=== PATIENT | male | born 1965 | race Caucasian/White ===

== ENCOUNTER 2016-10-10 19:08 | Emergency (ER) | payer OTHER ==
[~2016-10-10 19:08] MED LIST: /ESOM40CA OR; /MOXI40TA OR; /OXAZ10CA OR; /PANT40TA PO; /RANI15TA PO; /THIA10TA OR; /ZOLP6ER; ACAM0.05 PO; ALBU0.084 INH; ALBUTEROL HFA INH; AMBI10TA; ATOM40CA PO; BACL10TA2 PO; BENZ5TA PO; CELE1CAP9 PO; CELE20TA; CHLO25TA5 PO; COLA100C PO; CYCL5TA PO; DEPA1TAB3 PO; DEPA250T32 PO; DEPA500T2 PO; DEPAKOTE PO; DIVA500T3 PO; FLUO10CA9 PO; FOLI1TAB OR; HYDR10EL PO; HYDR50CA2 PO; HYDR50IN3 PO; KLON0.5T; M-VI27TA PO; MULTIVIT OR; NEUR600T PO; NICO14DI3 TD; NICO21DI4 TD; NICO7DIS4 TD; NORC5TAB PO; OMEP20TA7 OR; ONDA4TAB6 PO; OXYC5CAP28 PO; PERC7.5T8 PO; PERCOCET PO; PROT1TAB2 PO; PROZ20CA11 PO; QUET30TA; RISP1TAB3 PO; RISP2TAB3 PO; RISP2TAB30 PO; SERO400T; SERO400T3; SUCR1SUS PO; TRAZ100T OR; TRAZ100T4 PO; TRAZ50TA2 PO; VIST50CA PO; VITA100T; VITAMIN B COMPLE1; ZANT150T OR; ZOLO50TA PO; ZYPR15TA OR; ZYPR2.5T2 PO; ZYPR5TAB OR; flexeril PO
[2016-10-10] MEDS ORDERED: KETOROLAC 30 MG/ML VIAL (J1885) As Ordered ONE (19:51)
[2016-10-10 20:39] LABS: BASO # 0.1 K/mm3 (0.0-0.2); BASO % 1.4 % (0.0-1.0); EOS # 0.2 K/mm3 (0.0-0.50); EOS % 2.6 % (0.0-3.0); LARGE UNSTAINED CELL # 0.2 K/mm3 (0.0-0.4); LARGE UNSTAINED CELL % 2.6 % (0.0-4.0); LYMPH # 2.3 K/mm3 (1.5-4.5); LYMPH % 33.9 % (24.0-44.0); MEAN CORPUSCULAR HEMOGLOBIN 33.2 pg (27.0-33.0); MEAN CORPUSCULAR HGB CONC 33.5 g/dl (32.0-36.5); MEAN CORPUSCULAR VOLUME 99.1 fl (80.0-96.0); MONO # 0.4 K/mm3 (0.0-0.8); MONO % 6.2 % (0.0-5.0); NEUTROPHILS # 3.4 K/mm3 (1.8-7.7); NEUTROPHILS % 53.2 % (36.0-66.0); PLATELET COUNT, AUTOMATED 259 k/mm3 (150-450); RED CELL DISTRIBUTION WIDTH 12.6 % (11.5-14.5); WHITE BLOOD COUNT 6.4 K/mm3 (4.0-10.0)
--- NOTE | 2016-10-10 20:50 | REPUSA ---
CLINICAL STATEMENT: Chest wall pain TECHNIQUE: CT of the chest was performed without intravenous contrast by obtaining contiguous axial s lices from level of the thyroid gland to level of the kidneys. Post imaging 3-D technique processing was utilized and multiplanar reformats were obtained in coronal and sagittal projections. COMPARISON: None FINDINGS: Lower neck: Visualized thyroid gland unremarkable. No mass or suspicious cystic lesion. Lungs / airways / pleura: No acute infiltrate, effusion, pneumothorax, mass, or suspicious nodule. Th ere are bilateral lower lobe scattered reticular and atelectatic opacities toward the bases which are nonspecific although likely benign post inflammatory changes. Central and visualized peripheral airw ays are patent. Mediastinum: No mass or suspicious cystic lesion. Heart normal in size without pericardial effusion. Thoracic aorta and pulmonary trunk normal in caliber. Lymph nodes: No enlarged adenopathy. Upper abdomen: Status post cholecystectomy otherwise no significant abnormalities identified. Osseous structures/Soft tissues/thoracic wall: Mild superior L1 compression deformity without surroun ding soft tissue swelling or hematoma likely chronic. No soft tissue abnormality or hernia. Line/devices: None. IMPRESSION: No evidence of acute intrathoracic injury.
[2016-10-10 21:00] LABS: ANION GAP 9 MEQ/L (8-16); BLOOD UREA NITROGEN 8 MG/DL (7-18); CALCIUM LEVEL 8.4 MG/DL (8.5-10.1); CARBON DIOXIDE LEVEL 27 MEQ/L (21-32); CHLORIDE LEVEL 105 MEQ/L (98-107); CREATININE FOR GFR 0.99 MG/DL (0.70-1.30); GLOMERULAR FILTRATION RATE > 60.0 (>56); GLUCOSE, FASTING 74 MG/DL (70-105); POTASSIUM SERUM 3.8 MEQ/L (3.5-5.1); SODIUM LEVEL 141 MEQ/L (136-145)
[2016-10-10] MEDS ORDERED: PERCOCET 5MG/325MG TAB As Ordered ONE (21:04)
[2016-10-10] MEDS ORDERED: OXYCODONE/APAP 5MG/325MG(BULK) 1 TAB TAB As Ordered ONE (21:39)
--- NOTE | 2016-10-10 22:15 | EDDOCDS ---
Nurse's Notes [facility] Name: Maurice Almodovar Age: 51 yrs Sex: Male : 1965 Arrival Date: 10/10/2016 Time: 19:08 Bed 15 Private MD: Merlene Dash C Diagnosis: Contusion of left front wall of thorax Presentation: 10/10 19:16 Presenting complaint: Patient states: "my ribs hurt". Per patient, fell the other night cf2 was seen and discharged from [place], told he had "bruised lung and ribs". Tonight pain has increased EMS states: stable during transport. Lung sounds clear to auscultation. Adult Sepsis Screening: The patient does not have new or worsening altered mentation. Patient's respiratory rate is less than 22. Systolic blood pressure is greater than 100. Patient has a qSOFA score of 0- Negative Sepsis Screen. Suicide/Homicide risk assessment- the patient denies having any suicidal and/or homicidal ideations and does not present with any other emotional, behavioral or mental health complaints. Status: Patient is not a service loss control consultant or dependent. Transition of care: patient was not received from another setting of care. 19:16 Acuity: AASHISH Level 4 cf2 19:16 Acuity: AASHISH Level 3 cf2 19:16 Method Of Arrival: Ambulance cf2 Triage Assessment: 19:18 General: Appears distressed, Behavior is appropriate for age, cooperative. Pain: cf2 Location: chest and abdomen left side. Pt Declines HIV testing. GI: No deficits noted. Historical: - Allergies: Morphine (Upset stomach); - Home Meds: 1. none - PMHx: COPD; ETOH abuse; Heart AttackX2; - PSHx: Hernia repair- Left inguinal; Cholecystectomy; - Social history: Smoking status: Patient uses tobacco products, current every day smoker. Race: White, Ethnicity: Not or No barriers to communication noted, The patient speaks fluent Turkmen, Preferred Language: Turkmen. - Family history: Not pertinent. - : The pt / caregiver states he / she is not on anticoagulants. Home medication list is obtained from the patient. - Exposure Risk Screening:: None identified. Screenin:34 Screening information is obtained from the patient. Fall risk: At risk due to apparent cf2 chemical impairment, prior history of falls. Assistance ADL's: requires no assistance with activities of daily living. Abuse/DV Screen: The patient / caregiver reports he/she is: not in a situation that causes fear, pain or injury. Nutritional screening: No deficits noted. Advance Directives: Further advance directive information is declined. home support is adequate. Assessment: 19:21 General: See triage. cf2 20:34 Adult Sepsis Screening: The patient does not have new or worsening altered mentation. cf2 Patient's respiratory rate is less than 22. Systolic blood pressure is greater than 100. Patient has a qSOFA score of 0- Negative Sepsis Screen. Pain: Location: chest and abdomen left sided. Neurological: No deficits noted. EENT: No deficits noted. Cardiovascular: No deficits noted. Respiratory: No deficits noted. Breath sounds are clear bilaterally. tenderness to left lower ribs. GI: Abdomen is flat, non- distended Bowel sounds present X 4 quads. Abd is tender to palpation in left upper quadrant Reports Pain is 9 out of 10 on a pain scale. Denies constipation, diarrhea, nausea, vomiting. : No deficits noted. Derm: No deficits noted. Musculoskeletal: No deficits noted. Injury Description: No known injury. 22:00 Reassessment: Patient states feeling better. Patient states symptoms have improved. cf2 Vital Signs: 19:18 BP 112 / 79; Pulse 74; Resp 18; Temp 96.8; Pulse Ox 93% on R/A; Weight 63.5 kg; Height cf2 5 ft. 8 in. (172.72 cm); Pain 9/10; 21:42 BP 109 / 63; Pulse 64; Resp 18; Temp 98.2(TE); Pulse Ox 94% on R/A; Pain 7/10; mdr 19:18 Body Mass Index 21.29 (63.50 kg, 172.72 cm) cf2 Vitals: 19:18 Log In Time N/A - ambulance arrival. cf2 ED Course: 19:10 Patient visited by Bk Elise PCA. kb5 19:10 Patient moved to Waiting kb5 19:11 Merlene Dash is Private Physician. kb5 19:11 Patient moved to 15 kb5 19:16 Charleen Mosley,RN is Primary Nurse. cf2 19:16 Patient visited by Charleen Mosley,SHIRA. cf2 19:17 Triage Initiated cf2 19:21 Patient visited by Charleen Mosley RN. cf2 19:36 Jay Campa DO is Attending Physician. mm11 19:36 Patient visited by Jay Campa DO. mm11 19:37 Patient visited by Charleen Mosley RN. cf2 19:49 Patient visited by Jay Campa DO. mm11 20:02 [facility] Payment Agreement was scanned into [employer] and attached to record. gjb 20:26 Patient visited by Charleen Mosley RN. cf2 20:26 ETOH Sent. cf2 20:26 BMP Sent. cf2 20:27 CBC with Diff Sent. cf2 20:34 The patient / caregiver is instructed regarding the plan of care and ED course. Patient cf2 has correct armband on for positive identification. Placed in gown. Bed in low position. Call light in reach. Side rails up X 1. Side rails up X2. Pulse ox on. Property :Personal belongings accompany Pt. Door closed. Noise minimized. Visitors limited. Lights dimmed. Moved to private room. Verbal reassurance given. Warm blanket given. Pillow given. Head of bed elevated. 20:34 Inserted saline lock: 20 gauge in right antecubital area and blood collected. The cf2 patient tolerated the procedure well. No procedures done that require assistance. 20:47 Patient visited by Charleen Mosley RN. cf2 21:19 Patient visited by Charleen Mosley RN. cf2 21:27 Merlene Dash is Referral Physician. mm11 21:42 Patient visited by Keith Morse PCA. mdr 21:43 CT Chest Without Contrast Returned. EDMS 22:00 Patient visited by Charleen Mosley RN. cf2 22:00 Discontinued lock. cf2 Administered Medications: 20:00 Drug: ketorolac 30 mg [ketorolac 30 mg/mL (1 mL) injection solution (1 mL)] Route: IVP; cf2 Site: right antecubital; 22:15 Follow up: Response: No significant change. cf2 21:19 Drug: oxyCODONE-acetaminophen 1 tabs [oxycodone-acetaminophen 5 mg-325 mg tablet (1 cf2 tabs)] Route: PO; 22:14 Follow up: Response: Pain is decreased cf2 21:46 Drug: oxyCODONE-acetaminophen 4 pack 1 packets [oxycodone-acetaminophen 5 mg-325 mg cf2 tablet (1 tabs)] {Co-Signature: kas2 (Lakeisha Ferris RN).} Route: PO; 22:14 Follow up: Response: No significant change. cf2 Order Results: Lab Order: CBC with Diff; SPEC'M 10/10/16 20:23 Test: WHITE BLOOD COUNT; Value: 6.4; Range: 4.0-10.0; Units: K/mm3; Status: F Test: RED BLOOD COUNT; Value: 4.41; Range: 4.30-6.10; Units: M/mm3; Status: F Test: HEMOGLOBIN; Value: 14.6; Range: 14.0-18.0; Units: g/dl; Status: F Test: HEMATOCRIT; Value: 43.7; Range: 42.0-52.0; Units: %; Status: F Test: MEAN CORPUSCULAR VOLUME; Value: 99.1; Range: 80.0-96.0; Abnormal: Above high normal; Units: fl; Status: F Test: MEAN CORPUSCULAR HEMOGLOBIN; Value: 33.2; Range: 27.0-33.0; Abnormal: Above high normal; Units: pg; Status: F Test: MEAN CORPUSCULAR HGB CONC; Value: 33.5; Range: 32.0-36.5; Units: g/dl; Status: F Test: RED CELL DISTRIBUTION WIDTH; Value: 12.6; Range: 11.5-14.5; Units: %; Status: F Test: PLATELET COUNT, AUTOMATED; Value: 259; Range: 150-450; Units: k/mm3; Status: F Test: NEUTROPHILS %; Value: 53.2; Range: 36.0-66.0; Units: %; Status: F Test: LYMPH %; Value: 33.9; Range: 24.0-44.0; Units: %; Status: F Test: MONO %; Value: 6.2; Range: 0.0-5.0; Abnormal: Above high normal; Units: %; Status: F Test: EOS %; Value: 2.6; Range: 0.0-3.0; Units: %; Status: F Test: BASO %; Value: 1.4; Range: 0.0-1.0; Abnormal: Above high normal; Units: %; Status: F Test: LARGE UNSTAINED CELL %; Value: 2.6; Range: 0.0-4.0; Units: %; Status: F Test: NEUTROPHILS #; Value: 3.4; Range: 1.8-7.7; Units: K/mm3; Status: F Test: LYMPH #; Value: 2.3; Range: 1.5-4.5; Units: K/mm3; Status: F Test: MONO #; Value: 0.4; Range: 0.0-0.8; Units: K/mm3; Status: F Test: EOS #; Value: 0.2; Range: 0.0-0.50; Units: K/mm3; Status: F Test: BASO #; Value: 0.1; Range: 0.0-0.2; Units: K/mm3; Status: F Test: LARGE UNSTAINED CELL #; Value: 0.2; Range: 0.0-0.4; Units: K/mm3; Status: F Lab Order: [facility]; SPEC'M 10/10/16 20:23 Test: GLUCOSE, FASTING; Value: 74; Range: 70-105; Units: MG/DL; Status: F Test: BLOOD UREA NITROGEN; Value: 8; Range: 7-18; Units: MG/DL; Status: F Test: CREATININE FOR GFR; Value: 0.99; Range: 0.70-1.30; Units: MG/DL; Status: F Test: GLOMERULAR FILTRATION RATE; Value: > 60.0; Range: >56; Status: F Test: SODIUM LEVEL; Value: 141; Range: 136-145; Units: MEQ/L; Status: F Test: POTASSIUM SERUM; Value: 3.8; Range: 3.5-5.1; Units: MEQ/L; Status: F Test: CHLORIDE LEVEL; Value: 105; Range: 98-107; Units: MEQ/L; Status: F Test: CARBON DIOXIDE LEVEL; Value: 27; Range: 21-32; Units: MEQ/L; Status: F Test: ANION GAP; Value: 9; Range: 8-16; Units: MEQ/L; Status: F Test: CALCIUM LEVEL; Value: 8.4; Range: 8.5-10.1; Abnormal: Below low normal; Units: MG/DL; Status: F Test Note: ; Units are mL/min/1.73 m2 Chronic Kidney Disease Staging per NKF: Stage I & II GFR >=60 Normal to Mildly Decreased Stage III GFR 30-59 Moderately Decreased Stage IV GFR 15-29 Severely Decreased Stage V GFR <15 Very Little GFR Left ESRD GFR <15 on FOOD AND NUTRITION SUPERVISOR Lab Order: ETOH; SPEC'M 10/10/16 20:23 Test: ETHYL ALCOHOL (ETHANOL); Value: 0.199; Range: 0.000-0.010; Abnormal: Above high normal; Units: %; Status: F Radiology Order: CT Chest Without Contrast Test: CT Chest Without Contrast REASON FOR EXAMINATION: left chest wall pain post trauma; ; CLINICAL STATEMENT: Chest wall pain; TECHNIQUE: CT of the chest was performed without intravenous contrast by obtaining contiguous axial s; lices from level of the thyroid gland to level of the kidneys. Post imaging 3-D technique processing; was utilized and multiplanar reformats were obtained in coronal and sagittal projections.; COMPARISON: None; FINDINGS:; Lower neck: Visualized thyroid gland unremarkable. No mass or suspicious cystic lesion.; Lungs / airways / pleura: No acute infiltrate, effusion, pneumothorax, mass, or suspicious nodule. Th; ere are bilateral lower lobe scattered reticular and atelectatic opacities toward the bases which are; nonspecific although likely benign post inflammatory changes. Central and visualized peripheral airw; ays are patent.; Mediastinum: No mass or suspicious cystic lesion. Heart normal in size without pericardial effusion.; Thoracic aorta and pulmonary trunk normal in caliber.; Lymph nodes: No enlarged adenopathy.; Upper abdomen: Status post cholecystectomy otherwise no significant abnormalities identified.; Osseous structures/Soft tissues/thoracic wall: Mild superior L1 compression deformity without surroun; ding soft tissue swelling or hematoma likely chronic. No soft tissue abnormality or hernia.; Line/devices: None.; IMPRESSION:; No evidence of acute intrathoracic injury.; ; Outcome: 20:34 CT Study completed. cf2 21:28 Discharge ordered by Provider. mm11 22:00 Discharge Assessment: Patient awake, alert and oriented x 3. No cognitive and/or cf2 functional deficits noted. Patient verbalized understanding of disposition instructions. Patient awake and alert. Oriented to person, place and time. Patient verbalized understanding of disposition instructions. Patient has no functional deficits. patient administered narcotics - yes. The following High Risk Discharge criteria are identified: None. Discharged to home via wheelchair, with significant other. Condition: good. Discharge instructions given to patient, Instructed on discharge instructions, medication usage, Demonstrated understanding of instructions, medications, Prescriptions given X 1. 22:15 Patient left the ED. [facility] Signatures: Dispatcher [employer] EDMS Bk Elise, SCREWDOWN OPERATOR SCREWDOWN OPERATOR kb5 Jay Campa, DO DO mm11 Krystina Agudelo, RN RN sls1 Keith Morse, SCREWDOWN OPERATOR SCREWDOWN OPERATOR mdr Em Durbin Christina,RN RN cf2 Lakeisha Ferris RN kas2 MTDD
--- NOTE | 2016-10-10 22:15 | EDDOCDS ---
Physician Documentation [facility] Name: Maurice Almodovar Age: 51 yrs Sex: Male : 1965 Arrival Date: 10/10/2016 Time: 19:08 Bed 15 Private MD: Merlene Dash C Disposition: 10/10/16 21:28 Discharged to Home/Self Care. Impression: Contusion of left front wall of thorax. - Condition is Stable. - Discharge Instructions: Chest Contusion, Chest Contusion, [id number]. - Prescriptions for Percocet 5- 325 mg Oral Tablet - take 1 tablet by ORAL route every 6 hours As needed MDD: 4 tabs; 20 tablet. - Medication Reconciliation, Local Pharmacy Hours form. - Follow up: Merlene Dash; When: 1 week; Reason: Continuance of care. - Problem is an acute exacerbation. - Symptoms have improved. Historical: - Allergies: Morphine (Upset stomach); - Home Meds: 1. none - PMHx: COPD; ETOH abuse; Heart AttackX2; - PSHx: Hernia repair- Left inguinal; Cholecystectomy; - Social history: Smoking status: Patient uses tobacco products, current every day smoker. Race: White, Ethnicity: Not or No barriers to communication noted, The patient speaks fluent Egyptian, Preferred Language: Egyptian. - Family history: Not pertinent. - : The pt / caregiver states he / she is not on anticoagulants. Home medication list is obtained from the patient. - Exposure Risk Screening:: None identified. Vital Signs: 10/10 19:18 BP 112 / 79; Pulse 74; Resp 18; Temp 96.8; Pulse Ox 93% on R/A; Weight 63.5 kg / 139.99 cf2 lbs; Height 5 ft. 8 in. (172.72 cm); Pain 9/10; 21:42 BP 109 / 63; Pulse 64; Resp 18; Temp 98.2(TE); Pulse Ox 94% on R/A; Pain 7/10; mdr 19:18 Body Mass Index 21.29 (63.50 kg, 172.72 cm) cf2 MDM: 19:50 IV Saline Lock ordered. mm11 19:50 ketorolac 30 mg IVP once ordered. mm11 19:51 CBC with Diff Ordered. EDMS 19:51 BMP Ordered. EDMS 19:51 ETOH Ordered. EDMS 19:52 CT Chest Without Contrast Ordered. EDMS 20:01 Financial registration complete. gjb 20:02 [facility] Payment Agreement was scanned into [email or web address] and attached to record. gjb 21: CBC with Diff Reviewed. mm11 21: BMP Reviewed. mm11 21: ETOH Reviewed. mm11 21:01 oxyCODONE-acetaminophen 5 mg-325 mg 1 tabs PO once ordered. mm11 21:27 oxyCODONE-acetaminophen 4 pack 5 mg-325 mg 1 packets PO once; Dispense with pt, take as mm11 per instruction on package ordered. Administered Medications: 20:00 Drug: ketorolac 30 mg [ketorolac 30 mg/mL (1 mL) injection solution (1 mL)] Route: IVP; cf2 Site: right antecubital; 22:15 Follow up: Response: No significant change. cf2 21:19 Drug: oxyCODONE-acetaminophen 1 tabs [oxycodone-acetaminophen 5 mg-325 mg tablet (1 cf2 tabs)] Route: PO; 22:14 Follow up: Response: Pain is decreased cf2 21:46 Drug: oxyCODONE-acetaminophen 4 pack 1 packets [oxycodone-acetaminophen 5 mg-325 mg cf2 tablet (1 tabs)] {Co-Signature: kas2 (Lakeisha Ferris RN).} Route: PO; 22:14 Follow up: Response: No significant change. cf2 Signatures: Dispatcher [employer] EDMS Jay Campa, DO DO mm11 Krystina Agudelo RN RN sls1 Em Durbin [facility] Charleen Mosley RN RN cf2 Lakeisha Ferris RN kas2 The chart was reviewed and I authenticate all verbal orders and agree with the evaluation and treatment provided.Attachments: 20:02 [facility] Payment Agreement gj MTDD
--- NOTE | 2016-10-12 23:16 | EDDOCDS ---
Physician Documentation [facility] Name: Maurice Almodovar Age: 51 yrs Sex: Male : 1965 Arrival Date: 10/10/2016 Time: 19:08 Bed 15 Private MD: Merlene Dash C Disposition: 10/10/16 21:28 Discharged to Home/Self Care. Impression: Contusion of left front wall of thorax. - Condition is Stable. - Discharge Instructions: Chest Contusion, Chest Contusion, [id number]. - Prescriptions for Percocet 5- 325 mg Oral Tablet - take 1 tablet by ORAL route every 6 hours As needed MDD: 4 tabs; 20 tablet. - Medication Reconciliation, Local Pharmacy Hours form. - Follow up: Merlene Dash; When: 1 week; Reason: Continuance of care. - Problem is an acute exacerbation. - Symptoms have improved. Historical: - Allergies: Morphine (Upset stomach); - Home Meds: 1. none - PMHx: COPD; ETOH abuse; Heart AttackX2; - PSHx: Hernia repair- Left inguinal; Cholecystectomy; - Social history: Smoking status: Patient uses tobacco products, current every day smoker. Race: White, Ethnicity: Not or No barriers to communication noted, The patient speaks fluent Taiwanese, Preferred Language: Taiwanese. - Family history: Not pertinent. - : The pt / caregiver states he / she is not on anticoagulants. Home medication list is obtained from the patient. - Exposure Risk Screening:: None identified. Vital Signs: 10/10 19:18 BP 112 / 79; Pulse 74; Resp 18; Temp 96.8; Pulse Ox 93% on R/A; Weight 63.5 kg / 139.99 cf2 lbs; Height 5 ft. 8 in. (172.72 cm); Pain 9/10; 21:42 BP 109 / 63; Pulse 64; Resp 18; Temp 98.2(TE); Pulse Ox 94% on R/A; Pain 7/10; mdr 19:18 Body Mass Index 21.29 (63.50 kg, 172.72 cm) cf2 MDM: 19:50 IV Saline Lock ordered. mm11 19:50 ketorolac 30 mg IVP once ordered. mm11 19:51 CBC with Diff Ordered. EDMS 19:51 BMP Ordered. EDMS 19:51 ETOH Ordered. EDMS 19:52 CT Chest Without Contrast Ordered. EDMS 20:01 Financial registration complete. b 20: [facility] Payment Agreement was scanned into [employer] and attached to record. gjb 21: CBC with Diff Reviewed. mm11 21: BMP Reviewed. mm11 21: ETOH Reviewed. mm11 21:01 oxyCODONE-acetaminophen 5 mg-325 mg 1 tabs PO once ordered. mm11 21:27 oxyCODONE-acetaminophen 4 pack 5 mg-325 mg 1 packets PO once; Dispense with pt, take as mm11 per instruction on package ordered. 10/11 11:32 T-Sheet-- Draft Copy was scanned into [employer] and attached to record. gb 11:32 Radiology Report was scanned into [employer] and attached to record. gb 11:32 PCR was scanned into [employer] and attached to record. gb Administered Medications: 10/10 20:00 Drug: ketorolac 30 mg [ketorolac 30 mg/mL (1 mL) injection solution (1 mL)] Route: IVP; cf2 Site: right antecubital; 22:15 Follow up: Response: No significant change. cf2 21:19 Drug: oxyCODONE-acetaminophen 1 tabs [oxycodone-acetaminophen 5 mg-325 mg tablet (1 cf2 tabs)] Route: PO; 22:14 Follow up: Response: Pain is decreased cf2 21:46 Drug: oxyCODONE-acetaminophen 4 pack 1 packets [oxycodone-acetaminophen 5 mg-325 mg cf2 tablet (1 tabs)] {Co-Signature: kas2 (Lakeisha Ferris RN).} Route: PO; 22:14 Follow up: Response: No significant change. cf2 Signatures: Dispatcher [employer] EDMS Melida Keane, Reg Reg gb Jay Campa, DO mm11 Krystina Agudelo RN RN sls1 Em Durbin [facility] Charleen Mosley RN RN cf2 Lakeisha Ferris RN kas2 The chart was reviewed and I authenticate all verbal orders and agree with the evaluation and treatment provided.Attachments: 20:02 [facility] Payment Agreement [facility] 10/11 11:32 T-Sheet-- Draft Copy gb Chart Complete MTDD
--- NOTE | 2016-10-12 23:16 | EDDOCDS ---
Physician Documentation [facility] Name: Maurice Almodovar Age: 51 yrs Sex: Male : 1965 Arrival Date: 10/10/2016 Time: 19:08 Bed 15 Private MD: Merlene Dash C Disposition: 10/10/16 21:28 Discharged to Home/Self Care. Impression: Contusion of left front wall of thorax. - Condition is Stable. - Discharge Instructions: Chest Contusion, Chest Contusion, [id number]. - Prescriptions for Percocet 5- 325 mg Oral Tablet - take 1 tablet by ORAL route every 6 hours As needed MDD: 4 tabs; 20 tablet. - Medication Reconciliation, Local Pharmacy Hours form. - Follow up: Merlene Dash; When: 1 week; Reason: Continuance of care. - Problem is an acute exacerbation. - Symptoms have improved. Historical: - Allergies: Morphine (Upset stomach); - Home Meds: 1. none - PMHx: COPD; ETOH abuse; Heart AttackX2; - PSHx: Hernia repair- Left inguinal; Cholecystectomy; - Social history: Smoking status: Patient uses tobacco products, current every day smoker. Race: White, Ethnicity: Not or No barriers to communication noted, The patient speaks fluent Portuguese, Preferred Language: Portuguese. - Family history: Not pertinent. - : The pt / caregiver states he / she is not on anticoagulants. Home medication list is obtained from the patient. - Exposure Risk Screening:: None identified. Vital Signs: 10/10 19:18 BP 112 / 79; Pulse 74; Resp 18; Temp 96.8; Pulse Ox 93% on R/A; Weight 63.5 kg / 139.99 cf2 lbs; Height 5 ft. 8 in. (172.72 cm); Pain 9/10; 21:42 BP 109 / 63; Pulse 64; Resp 18; Temp 98.2(TE); Pulse Ox 94% on R/A; Pain 7/10; mdr 19:18 Body Mass Index 21.29 (63.50 kg, 172.72 cm) cf2 MDM: 19:50 IV Saline Lock ordered. mm11 19:50 ketorolac 30 mg IVP once ordered. mm11 19:51 CBC with Diff Ordered. EDMS 19:51 BMP Ordered. EDMS 19:51 ETOH Ordered. EDMS 19:52 CT Chest Without Contrast Ordered. EDMS 20:01 Financial registration complete. b 20: REPLACED BY [facility] Payment Agreement was scanned into [employer] and attached to record. gjb 21: CBC with Diff Reviewed. mm11 21: BMP Reviewed. mm11 21: ETOH Reviewed. mm11 21:01 oxyCODONE-acetaminophen 5 mg-325 mg 1 tabs PO once ordered. mm11 21:27 oxyCODONE-acetaminophen 4 pack 5 mg-325 mg 1 packets PO once; Dispense with pt, take as mm11 per instruction on package ordered. 10/11 11:32 T-Sheet-- Draft Copy was scanned into [employer] and attached to record. gb 11:32 Radiology Report was scanned into [employer] and attached to record. gb 11:32 PCR was scanned into [employer] and attached to record. gb Administered Medications: 10/10 20:00 Drug: ketorolac 30 mg [ketorolac 30 mg/mL (1 mL) injection solution (1 mL)] Route: IVP; cf2 Site: right antecubital; 22:15 Follow up: Response: No significant change. cf2 21:19 Drug: oxyCODONE-acetaminophen 1 tabs [oxycodone-acetaminophen 5 mg-325 mg tablet (1 cf2 tabs)] Route: PO; 22:14 Follow up: Response: Pain is decreased cf2 21:46 Drug: oxyCODONE-acetaminophen 4 pack 1 packets [oxycodone-acetaminophen 5 mg-325 mg cf2 tablet (1 tabs)] {Co-Signature: kas2 (Lakeisha Ferris RN).} Route: PO; 22:14 Follow up: Response: No significant change. cf2 Signatures: Dispatcher [employer] EDMS Melida Keane, Reg Reg gb Jay Campa, DO mm11 Krystina Agudelo RN RN sls1 Em Durbin banner Charleen Mosley RN RN cf2 Lakeisha Ferris RN kas2 The chart was reviewed and I authenticate all verbal orders and agree with the evaluation and treatment provided.Attachments: 20:02 REPLACED BY [facility] Payment Agreement banner 10/11 11:32 T-Sheet-- Draft Copy gb Chart Complete MTDD
--- NOTE | 2016-10-12 23:16 | EDDOCDS ---
Nurse's Notes [facility] Name: Maurice Almodovar Age: 51 yrs Sex: Male : 1965 Arrival Date: 10/10/2016 Time: 19:08 Bed 15 Private MD: Merlene Dash C Diagnosis: Contusion of left front wall of thorax Presentation: 10/10 19:16 Presenting complaint: Patient states: "my ribs hurt". Per patient, fell the other night cf2 was seen and discharged from [facility], told he had "bruised lung and ribs". Tonight pain has increased EMS states: stable during transport. Lung sounds clear to auscultation. Adult Sepsis Screening: The patient does not have new or worsening altered mentation. Patient's respiratory rate is less than 22. Systolic blood pressure is greater than 100. Patient has a qSOFA score of 0- Negative Sepsis Screen. Suicide/Homicide risk assessment- the patient denies having any suicidal and/or homicidal ideations and does not present with any other emotional, behavioral or mental health complaints. Status: Patient is not a passenger service agent or dependent. Transition of care: patient was not received from another setting of care. 19:16 Acuity: AASHISH Level 4 cf2 19:16 Acuity: AASHISH Level 3 cf2 19:16 Method Of Arrival: Ambulance cf2 Triage Assessment: 19:18 General: Appears distressed, Behavior is appropriate for age, cooperative. Pain: cf2 Location: chest and abdomen left side. Pt Declines HIV testing. GI: No deficits noted. Historical: - Allergies: Morphine (Upset stomach); - Home Meds: 1. none - PMHx: COPD; ETOH abuse; Heart AttackX2; - PSHx: Hernia repair- Left inguinal; Cholecystectomy; - Social history: Smoking status: Patient uses tobacco products, current every day smoker. Race: White, Ethnicity: Not or No barriers to communication noted, The patient speaks fluent Lithuanian, Preferred Language: Lithuanian. - Family history: Not pertinent. - : The pt / caregiver states he / she is not on anticoagulants. Home medication list is obtained from the patient. - Exposure Risk Screening:: None identified. Screenin:34 Screening information is obtained from the patient. Fall risk: At risk due to apparent cf2 chemical impairment, prior history of falls. Assistance ADL's: requires no assistance with activities of daily living. Abuse/DV Screen: The patient / caregiver reports he/she is: not in a situation that causes fear, pain or injury. Nutritional screening: No deficits noted. Advance Directives: Further advance directive information is declined. home support is adequate. Assessment: 19:21 General: See triage. cf2 20:34 Adult Sepsis Screening: The patient does not have new or worsening altered mentation. cf2 Patient's respiratory rate is less than 22. Systolic blood pressure is greater than 100. Patient has a qSOFA score of 0- Negative Sepsis Screen. Pain: Location: chest and abdomen left sided. Neurological: No deficits noted. EENT: No deficits noted. Cardiovascular: No deficits noted. Respiratory: No deficits noted. Breath sounds are clear bilaterally. tenderness to left lower ribs. GI: Abdomen is flat, non- distended Bowel sounds present X 4 quads. Abd is tender to palpation in left upper quadrant Reports Pain is 9 out of 10 on a pain scale. Denies constipation, diarrhea, nausea, vomiting. : No deficits noted. Derm: No deficits noted. Musculoskeletal: No deficits noted. Injury Description: No known injury. 22:00 Reassessment: Patient states feeling better. Patient states symptoms have improved. cf2 Vital Signs: 19:18 BP 112 / 79; Pulse 74; Resp 18; Temp 96.8; Pulse Ox 93% on R/A; Weight 63.5 kg; Height cf2 5 ft. 8 in. (172.72 cm); Pain 9/10; 21:42 BP 109 / 63; Pulse 64; Resp 18; Temp 98.2(TE); Pulse Ox 94% on R/A; Pain 7/10; mdr 19:18 Body Mass Index 21.29 (63.50 kg, 172.72 cm) cf2 Vitals: 19:18 Log In Time N/A - ambulance arrival. cf2 ED Course: 19:10 Patient visited by Bk Elise PCA. kb5 19:10 Patient moved to Waiting kb5 19:11 Merlene Dash is Private Physician. kb5 19:11 Patient moved to 15 kb5 19:16 Charleen Mosley,RN is Primary Nurse. cf2 19:16 Patient visited by Charleen Mosley,SHIRA. cf2 19:17 Triage Initiated cf2 19:21 Patient visited by Charleen Mosley RN. cf2 19:36 Jay Campa DO is Attending Physician. mm11 19:36 Patient visited by Jay Campa DO. mm11 19:37 Patient visited by Charleen Mosley RN. cf2 19:49 Patient visited by Jay Campa DO. mm11 20:02 [facility] Payment Agreement was scanned into [employer] and attached to record. gjb 20:26 Patient visited by Charleen Mosley RN. cf2 20:26 ETOH Sent. cf2 20:26 BMP Sent. cf2 20:27 CBC with Diff Sent. cf2 20:34 The patient / caregiver is instructed regarding the plan of care and ED course. Patient cf2 has correct armband on for positive identification. Placed in gown. Bed in low position. Call light in reach. Side rails up X 1. Side rails up X2. Pulse ox on. Property :Personal belongings accompany Pt. Door closed. Noise minimized. Visitors limited. Lights dimmed. Moved to private room. Verbal reassurance given. Warm blanket given. Pillow given. Head of bed elevated. 20:34 Inserted saline lock: 20 gauge in right antecubital area and blood collected. The cf2 patient tolerated the procedure well. No procedures done that require assistance. 20:47 Patient visited by Charleen Mosley RN. cf2 21:19 Patient visited by Charleen Mosley RN. cf2 21:27 Merlene Dash is Referral Physician. mm11 21:42 Patient visited by Keith Morse PCA. mdr 21:43 CT Chest Without Contrast Returned. EDMS 22:00 Patient visited by Charleen Mosley RN. cf2 22:00 Discontinued lock. cf2 10/11 11:32 T-Sheet-- Draft Copy was scanned into [employer] and attached to record. gb 11:32 Radiology Report was scanned into [employer] and attached to record. gb 11:32 PCR was scanned into [employer] and attached to record. gb Administered Medications: 10/10 20:00 Drug: ketorolac 30 mg [ketorolac 30 mg/mL (1 mL) injection solution (1 mL)] Route: IVP; cf2 Site: right antecubital; 22:15 Follow up: Response: No significant change. cf2 21:19 Drug: oxyCODONE-acetaminophen 1 tabs [oxycodone-acetaminophen 5 mg-325 mg tablet (1 cf2 tabs)] Route: PO; 22:14 Follow up: Response: Pain is decreased cf2 21:46 Drug: oxyCODONE-acetaminophen 4 pack 1 packets [oxycodone-acetaminophen 5 mg-325 mg cf2 tablet (1 tabs)] {Co-Signature: kas2 (Lakeisha Ferris RN).} Route: PO; 22:14 Follow up: Response: No significant change. cf2 Order Results: Lab Order: CBC with Diff; SPEC'M 10/10/16 20:23 Test: WHITE BLOOD COUNT; Value: 6.4; Range: 4.0-10.0; Units: K/mm3; Status: F Test: RED BLOOD COUNT; Value: 4.41; Range: 4.30-6.10; Units: M/mm3; Status: F Test: HEMOGLOBIN; Value: 14.6; Range: 14.0-18.0; Units: g/dl; Status: F Test: HEMATOCRIT; Value: 43.7; Range: 42.0-52.0; Units: %; Status: F Test: MEAN CORPUSCULAR VOLUME; Value: 99.1; Range: 80.0-96.0; Abnormal: Above high normal; Units: fl; Status: F Test: MEAN CORPUSCULAR HEMOGLOBIN; Value: 33.2; Range: 27.0-33.0; Abnormal: Above high normal; Units: pg; Status: F Test: MEAN CORPUSCULAR HGB CONC; Value: 33.5; Range: 32.0-36.5; Units: g/dl; Status: F Test: RED CELL DISTRIBUTION WIDTH; Value: 12.6; Range: 11.5-14.5; Units: %; Status: F Test: PLATELET COUNT, AUTOMATED; Value: 259; Range: 150-450; Units: k/mm3; Status: F Test: NEUTROPHILS %; Value: 53.2; Range: 36.0-66.0; Units: %; Status: F Test: LYMPH %; Value: 33.9; Range: 24.0-44.0; Units: %; Status: F Test: MONO %; Value: 6.2; Range: 0.0-5.0; Abnormal: Above high normal; Units: %; Status: F Test: EOS %; Value: 2.6; Range: 0.0-3.0; Units: %; Status: F Test: BASO %; Value: 1.4; Range: 0.0-1.0; Abnormal: Above high normal; Units: %; Status: F Test: LARGE UNSTAINED CELL %; Value: 2.6; Range: 0.0-4.0; Units: %; Status: F Test: NEUTROPHILS #; Value: 3.4; Range: 1.8-7.7; Units: K/mm3; Status: F Test: LYMPH #; Value: 2.3; Range: 1.5-4.5; Units: K/mm3; Status: F Test: MONO #; Value: 0.4; Range: 0.0-0.8; Units: K/mm3; Status: F Test: EOS #; Value: 0.2; Range: 0.0-0.50; Units: K/mm3; Status: F Test: BASO #; Value: 0.1; Range: 0.0-0.2; Units: K/mm3; Status: F Test: LARGE UNSTAINED CELL #; Value: 0.2; Range: 0.0-0.4; Units: K/mm3; Status: F Lab Order: [facility]; [facility]M 10/10/16 20:23 Test: GLUCOSE, FASTING; Value: 74; Range: 70-105; Units: MG/DL; Status: F Test: BLOOD UREA NITROGEN; Value: 8; Range: 7-18; Units: MG/DL; Status: F Test: CREATININE FOR GFR; Value: 0.99; Range: 0.70-1.30; Units: MG/DL; Status: F Test: GLOMERULAR FILTRATION RATE; Value: > 60.0; Range: >56; Status: F Test: SODIUM LEVEL; Value: 141; Range: 136-145; Units: MEQ/L; Status: F Test: POTASSIUM SERUM; Value: 3.8; Range: 3.5-5.1; Units: MEQ/L; Status: F Test: CHLORIDE LEVEL; Value: 105; Range: 98-107; Units: MEQ/L; Status: F Test: CARBON DIOXIDE LEVEL; Value: 27; Range: 21-32; Units: MEQ/L; Status: F Test: ANION GAP; Value: 9; Range: 8-16; Units: MEQ/L; Status: F Test: CALCIUM LEVEL; Value: 8.4; Range: 8.5-10.1; Abnormal: Below low normal; Units: MG/DL; Status: F Test Note: ; Units are mL/min/1.73 m2 Chronic Kidney Disease Staging per NKF: Stage I & II GFR >=60 Normal to Mildly Decreased Stage III GFR 30-59 Moderately Decreased Stage IV GFR 15-29 Severely Decreased Stage V GFR <15 Very Little GFR Left ESRD GFR <15 on NEURODIAGNOSTIC TECH Lab Order: ETOH; SPEC'M 10/10/16 20:23 Test: ETHYL ALCOHOL (ETHANOL); Value: 0.199; Range: 0.000-0.010; Abnormal: Above high normal; Units: %; Status: F Radiology Order: CT Chest Without Contrast Test: CT Chest Without Contrast REASON FOR EXAMINATION: left chest wall pain post trauma; ; CLINICAL STATEMENT: Chest wall pain; TECHNIQUE: CT of the chest was performed without intravenous contrast by obtaining contiguous axial s; lices from level of the thyroid gland to level of the kidneys. Post imaging 3-D technique processing; was utilized and multiplanar reformats were obtained in coronal and sagittal projections.; COMPARISON: None; FINDINGS:; Lower neck: Visualized thyroid gland unremarkable. No mass or suspicious cystic lesion.; Lungs / airways / pleura: No acute infiltrate, effusion, pneumothorax, mass, or suspicious nodule. Th; ere are bilateral lower lobe scattered reticular and atelectatic opacities toward the bases which are; nonspecific although likely benign post inflammatory changes. Central and visualized peripheral airw; ays are patent.; Mediastinum: No mass or suspicious cystic lesion. Heart normal in size without pericardial effusion.; Thoracic aorta and pulmonary trunk normal in caliber.; Lymph nodes: No enlarged adenopathy.; Upper abdomen: Status post cholecystectomy otherwise no significant abnormalities identified.; Osseous structures/Soft tissues/thoracic wall: Mild superior L1 compression deformity without surroun; ding soft tissue swelling or hematoma likely chronic. No soft tissue abnormality or hernia.; Line/devices: None.; IMPRESSION:; No evidence of acute intrathoracic injury.; ; Outcome: 20:34 CT Study completed. cf2 21:28 Discharge ordered by Provider. mm11 22:00 Discharge Assessment: Patient awake, alert and oriented x 3. No cognitive and/or cf2 functional deficits noted. Patient verbalized understanding of disposition instructions. Patient awake and alert. Oriented to person, place and time. Patient verbalized understanding of disposition instructions. Patient has no functional deficits. patient administered narcotics - yes. The following High Risk Discharge criteria are identified: None. Discharged to home via wheelchair, with significant other. Condition: good. Discharge instructions given to patient, Instructed on discharge instructions, medication usage, Demonstrated understanding of instructions, medications, Prescriptions given X 1. 22:15 Patient left the ED. sls1 Signatures: Dispatcher [employer] EDMS Melida Keane, Reg Reg gb Bk Elise, EXPERIMENTAL MECHANIC ELECTRICAL EXPERIMENTAL MECHANIC ELECTRICAL kb5 Jay Campa, DO DO mm11 Krystina Agudelo RN RN sls1 Keith Morse, EXPERIMENTAL MECHANIC ELECTRICAL EXPERIMENTAL MECHANIC ELECTRICAL mdr Em Durbin Christina, RN RN cf2 Lakeisha Ferris RN kas2 Chart Complete MTDD
== END 2016-10-10 22:15 | disposition home or self-care (01) ==
LOC: M ED 19:08
DX: S20.212A Contusion of left front wall of thorax, initial encounter (principal); W18.30XA Fall on same level, unspecified, initial encounter; Y92.89 Other specified places as the place of occurrence of the external cause; Y93.89 Activity, other specified; Y99.8 Other external cause status; F10.10 Alcohol abuse, uncomplicated; J44.9 Chronic obstructive pulmonary disease, unspecified; Z86.73 Personal history of transient ischemic attack (TIA), and cerebral infarction without residual deficits; Z88.5 Allergy status to narcotic agent; F17.210 Nicotine dependence, cigarettes, uncomplicated
CPT/HCPCS: 36415; 71250; 80048; 85025; 96374; 99284; G0480; J1885

== ENCOUNTER 2016-10-30 19:19 | Emergency (ER) | payer OTHER ==
--- NOTE | 2016-10-30 22:21 | EDDOCDS ---
Nurse's Notes [facility] Name: Maurice Almodovar Age: 51 yrs Sex: Male : 1965 Arrival Date: 10/30/2016 Time: 19:19 Bed Triage 3 Private MD: Merlene Dash C Diagnosis: Malaise and fatigue Presentation: 10/30 19:32 Presenting complaint: Patient states: left leg and left arm pain with weakness x3 days. ttb Pt states he can walk but "would probably fall on my face". Some nubmness. The last date and time the patient was known to be well was was at an unknown time on October 27, 2016. An acute neurological deficit is present. The charge nurse has been notified. Pre-hospital glucose is not applicable to this patient. Adult Sepsis Screening: The patient does not have new or worsening altered mentation. Patient's respiratory rate is less than 22. Systolic blood pressure is greater than 100. Patient has a qSOFA score of 0- Negative Sepsis Screen. Suicide/Homicide risk assessment- the patient denies having any suicidal and/or homicidal ideations and does not present with any other emotional, behavioral or mental health complaints. 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 Transition of care: patient was not received from another setting of care. 19:32 Acuity: AASHISH Level 3 ttb 19:32 Method Of Arrival: Ambulance ttb Triage Assessment: 19:34 The onset of the patients symptoms was more than three hours ago. General: Appears in ttb no apparent distress, Behavior is appropriate for age, cooperative, pleasant. Pain: Location: left leg and arm. HIV screening NA for this visit Offered previously. Neurological: Level of Consciousness is awake, alert, Oriented to person, place, time, Moves all extremities. Speech is normal, Facial symmetry appears normal, Reports generalized weakness . Cardiovascular: Chest pain is denied. Respiratory: Airway is patent Respiratory effort is even, unlabored, Denies cough, shortness of breath. GI: Denies nausea, vomiting. Derm: Skin is normal. Historical: - Allergies: Morphine (Upset stomach); - Home Meds: 1. none - PMHx: COPD; ETOH abuse; Heart AttackX2; - PSHx: Hernia repair- Left inguinal; Cholecystectomy; - Social history: Smoking status: Patient uses tobacco products, current every day smoker. Patient uses alcohol on a daily basis. Patient/guardian denies using street drugs, No barriers to communication noted, The patient speaks fluent Slovenian, Speaks appropriately for age. - Family history: Not pertinent. - : The pt / caregiver states he / she is not on anticoagulants. Home medication list is obtained from the patient. - Exposure Risk Screening:: None identified. Screenin:19 Screening information is obtained from the patient. Fall risk: No risks identified. dsf Assistance ADL's: requires no assistance with activities of daily living. Abuse/DV Screen: The patient / caregiver reports he/she is: not in a situation that causes fear, pain or injury. Nutritional screening: No deficits noted. Advance Directives: Currently, there is no health care proxy. home support is adequate. Assessment: 21:47 General: Appears in no apparent distress, comfortable, Behavior is appropriate for age, nn1 cooperative. General: Patient reports sharp pains that shoot from left leg up to left chest. . Pain: Location: left clavicle, anterior aspect of left upper chest, left breast, and left leg Pain currently is 10 out of 10 on a pain scale. Quality of pain is described as sharp, shooting, stabbing, "knife stabbing me". Neurological: Level of Consciousness is awake, alert, obeys commands, Oriented to person, place, time, Moves all extremities. Speech is normal, Facial symmetry appears normal, Patient reports gait is unsteady , reports weakness . Reports dizziness, numbness weakness Numbness in right leg x 3-4 days . Cardiovascular: Capillary refill < 3 seconds Heart tones S1 S2 present. Respiratory: Airway is patent Respiratory effort is even, unlabored, Respiratory pattern is regular, symmetrical, Breath sounds are clear bilaterally. Denies shortness of breath. GI: No deficits noted. Derm: Skin is pink, warm & dry. 22:19 Adult Sepsis Screening: The patient does not have new or worsening altered mentation. dsf Patient's respiratory rate is less than 22. Systolic blood pressure is greater than 100. Patient has a qSOFA score of 0- Negative Sepsis Screen. General: Appears in no apparent distress, Behavior is appropriate for age, cooperative. Neurological: Level of Consciousness is awake, alert, Oriented to person, place, time. Cardiovascular: Capillary refill < 3 seconds. Respiratory: Airway is patent Respiratory effort is even, unlabored, Respiratory pattern is regular, symmetrical. Derm: Skin is pink, warm & dry. Vital Signs: 19:23 BP 112 / 79; Pulse 84; Resp 16; Temp 96.8; Pulse Ox 99% on R/A; Weight 65.77 kg (R); elp Height 5 ft. 8 in. (172.72 cm) (R); 21:51 BP 127 / 91; Pulse 77; Resp 18; Temp 98(O); Pulse Ox 94% on R/A; Pain 10/10; nn1 19:23 Body Mass Index 22.05 (65.77 kg, 172.72 cm) elp Vitals: 19:23 Log In Time N/A - ambulance arrival. elp 22:20 Glucose Measurement D-stick deferred by provider. dsf ED Course: 19:21 Patient visited by Keith Morse, AUTOMOTIVE SERVICE CONSULTANT. mdr 19:21 Patient moved to Waiting mdr 19:22 Merlene Dash is Private Physician. mdr 19:22 Patient moved to Pre RCE mdr 19:25 Patient visited by Niesha Levy, AUTOMOTIVE SERVICE CONSULTANT. elp 19:34 Triage Initiated ttb 19:37 Patient moved to PR2 / 26 ttb 19:59 Patient visited by Jarek Ibrahim, AUTOMOTIVE SERVICE CONSULTANT. jmv 19:59 EKG done. (by ED staff). Reviewed by Keon Fowler MD. jmv 20:06 Patient moved to Pre RCE jmv 21:41 Patient moved to Triage 3 dsf 21:52 Patient visited by Evelio Lindsey RN. nn1 21:57 Junito Cotton FNP is [facility]. ke 21:57 Patient visited by Junito Cotton FNP. ke 21:57 Patient visited by Junito Cotton FNP. ke 22:16 Merlene Dash is Referral Physician. ke 22:19 The patient / caregiver is instructed regarding the plan of care and ED course. dsf 22:19 No IV's were initiated during this patient's visit. No procedures done that require dsf assistance. Order Results: There are currently no results for this order. Outcome: 22:16 Discharge ordered by Provider. ke 22:19 Discharge Assessment: Patient awake, alert and oriented x 3. No cognitive and/or dsf functional deficits noted. Patient verbalized understanding of disposition instructions. patient administered narcotics - no. The following High Risk Discharge criteria are identified: None. Discharged to home ambulatory. Condition: stable. Discharge instructions given to patient, Instructed on discharge instructions, follow up and referral plans. medication usage, Demonstrated understanding of instructions, medications, Pt was receptive of discharge instructions/ teaching. Prescriptions given X 1. No special radiology studies were completed. Property sent home with patient. 22:20 Patient left the ED. f Signatures: Junito Cotton, MERGERS AND ACQUISITIONS CONSULTANT MERGERS AND ACQUISITIONS CONSULTANT Corrine Garcia,RN RN dsf Gracia Richmond, RN RN ttb Niesha Levy, AUTOMOTIVE SERVICE CONSULTANT AUTOMOTIVE SERVICE CONSULTANT elp Evelio LindseyRN RN nn1 Keith Morse, AUTOMOTIVE SERVICE CONSULTANT AUTOMOTIVE SERVICE CONSULTANT Jarek Escudero, AUTOMOTIVE SERVICE CONSULTANT AUTOMOTIVE SERVICE CONSULTANT jmv MTDD
--- NOTE | 2016-10-30 22:21 | EDDOCDS ---
Physician Documentation [facility] Name: Maurice Almodovar Age: 51 yrs Sex: Male : 1965 Arrival Date: 10/30/2016 Time: 19:19 Bed Triage 3 Private MD: Merlene Dash C Disposition: 10/30/16 22:16 Discharged to Home/Self Care. Impression: Malaise and fatigue. - Condition is Stable. - Discharge Instructions: Weakness, Fatigue. - Prescriptions for Naprosyn 500 mg Oral Tablet - take 1 tablet by ORAL route 2 times per day take with food; 30 tablet. - Medication Reconciliation, Local Pharmacy Hours form. - Follow up: Merlene Dash; When: 4 - 5 days; Reason: Recheck today's complaints, Continuance of care. - Problem is an ongoing problem. - Symptoms are unchanged. Historical: - Allergies: Morphine (Upset stomach); - Home Meds: 1. none - PMHx: COPD; ETOH abuse; Heart AttackX2; - PSHx: Hernia repair- Left inguinal; Cholecystectomy; - Social history: Smoking status: Patient uses tobacco products, current every day smoker. Patient uses alcohol on a daily basis. Patient/guardian denies using street drugs, No barriers to communication noted, The patient speaks fluent Lao, Speaks appropriately for age. - Family history: Not pertinent. - : The pt / caregiver states he / she is not on anticoagulants. Home medication list is obtained from the patient. - Exposure Risk Screening:: None identified. Vital Signs: 10/30 19:23 BP 112 / 79; Pulse 84; Resp 16; Temp 96.8; Pulse Ox 99% on R/A; Weight 65.77 kg / 145 elp lbs (R); Height 5 ft. 8 in. (172.72 cm) (R); 21:51 BP 127 / 91; Pulse 77; Resp 18; Temp 98(O); Pulse Ox 94% on R/A; Pain 10/10; nn1 19:23 Body Mass Index 22.05 (65.77 kg, 172.72 cm) elp MDM: 19:38 ECG WITH READING ER PHYS+CARDIAG ordered. EDMS Signatures: Dispatcher [employer] EDMS Junito Cotton, SCRIPT EDITOR SCRIPT EDITOR Corrine Garcia RN RN Jack Byrnesa, RN RN ttb CLOVERD
--- NOTE | 2016-10-31 21:48 | ECGEPIP ---
Stationary ECG Study [facility] - ED Test Date: 2016-10-30 Pat Name: RENE PADILLA Department: Room: - Gender: M General Foreman: keely : 1965 Requested By: RAISA SAMAYOA Order Number: [id number] Reading MD: Ana Rosa Knowles Measurements Intervals [place] Rate: 70 P: 67 [place]: 177 QRS: 76 QRSD: 89 T: 71 QT: 364 QTc: 393 Interpretive Statements SINUS RHYTHM NSTTW ABNORMALITY SIMILAR 08/21/15 Electronically Signed On 10-31-2016 21:48:27 EST by Ana Rosa Knowles
--- NOTE | 2016-11-01 23:22 | EDDOCDS ---
Physician Documentation [facility] Name: Maurice Almodovar Age: 51 yrs Sex: Male : 1965 Arrival Date: 10/30/2016 Time: 19:19 Bed Triage 3 Private MD: Merlene Dash C Disposition: 10/30/16 22:16 Discharged to Home/Self Care. Impression: Malaise and fatigue. - Condition is Stable. - Discharge Instructions: Weakness, Fatigue. - Prescriptions for Naprosyn 500 mg Oral Tablet - take 1 tablet by ORAL route 2 times per day take with food; 30 tablet. - Medication Reconciliation, Local Pharmacy Hours form. - Follow up: Merlene Dash; When: 4 - 5 days; Reason: Recheck today's complaints, Continuance of care. - Problem is an ongoing problem. - Symptoms are unchanged. Historical: - Allergies: Morphine (Upset stomach); - Home Meds: 1. none - PMHx: COPD; ETOH abuse; Heart AttackX2; - PSHx: Hernia repair- Left inguinal; Cholecystectomy; - Social history: Smoking status: Patient uses tobacco products, current every day smoker. Patient uses alcohol on a daily basis. Patient/guardian denies using street drugs, No barriers to communication noted, The patient speaks fluent Lithuanian, Speaks appropriately for age. - Family history: Not pertinent. - : The pt / caregiver states he / she is not on anticoagulants. Home medication list is obtained from the patient. - Exposure Risk Screening:: None identified. Vital Signs: 10/30 19:23 BP 112 / 79; Pulse 84; Resp 16; Temp 96.8; Pulse Ox 99% on R/A; Weight 65.77 kg / 145 elp lbs (R); Height 5 ft. 8 in. (172.72 cm) (R); 21:51 BP 127 / 91; Pulse 77; Resp 18; Temp 98(O); Pulse Ox 94% on R/A; Pain 10/10; nn1 19:23 Body Mass Index 22.05 (65.77 kg, 172.72 cm) elp MDM: 19:38 ECG WITH READING ER PHYS+CARDIAG ordered. EDMS 10/31 14:18 T-Sheet-- Draft Copy was scanned into [employer] and attached to record. 14:18 ECG/EKG was scanned into [employer] and attached to record. gb Signatures: Dispatcher [employer] EDMelida Hill, Reg Reg gb Junito Cotton, BOB SYP Corrine GarciaRN RN Gracia Byrnes RN RN ttb The chart was reviewed and I authenticate all verbal orders and agree with the evaluation and treatment provided.Attachments: 14:18 T-Sheet-- Draft Copy gb 14:18 ECG/EKG gb Chart Complete MTDD
--- NOTE | 2016-11-01 23:22 | EDDOCDS ---
Nurse's Notes [facility] Name: Rene Padilla Age: 51 yrs Sex: Male : 1965 Arrival Date: 10/30/2016 Time: 19:19 Bed Triage 3 Private MD: Merlene Dash C Diagnosis: Malaise and fatigue Presentation: 10/30 19:32 Presenting complaint: Patient states: left leg and left arm pain with weakness x3 days. ttb Pt states he can walk but "would probably fall on my face". Some nubmness. The last date and time the patient was known to be well was was at an unknown time on October 27, 2016. An acute neurological deficit is present. The charge nurse has been notified. Pre-hospital glucose is not applicable to this patient. Adult Sepsis Screening: The patient does not have new or worsening altered mentation. Patient's respiratory rate is less than 22. Systolic blood pressure is greater than 100. Patient has a qSOFA score of 0- Negative Sepsis Screen. Suicide/Homicide risk assessment- the patient denies having any suicidal and/or homicidal ideations and does not present with any other emotional, behavioral or mental health complaints. Status: Patient is not a banking services advisor or dependent. Transition of care: patient was not received from another setting of care. 19:32 Acuity: AASHISH Level 3 ttb 19:32 Method Of Arrival: Ambulance ttb Triage Assessment: 19:34 The onset of the patients symptoms was more than three hours ago. General: Appears in ttb no apparent distress, Behavior is appropriate for age, cooperative, pleasant. Pain: Location: left leg and arm. HIV screening NA for this visit Offered previously. Neurological: Level of Consciousness is awake, alert, Oriented to person, place, time, Moves all extremities. Speech is normal, Facial symmetry appears normal, Reports generalized weakness . Cardiovascular: Chest pain is denied. Respiratory: Airway is patent Respiratory effort is even, unlabored, Denies cough, shortness of breath. GI: Denies nausea, vomiting. Derm: Skin is normal. Historical: - Allergies: Morphine (Upset stomach); - Home Meds: 1. none - PMHx: COPD; ETOH abuse; Heart AttackX2; - PSHx: Hernia repair- Left inguinal; Cholecystectomy; - Social history: Smoking status: Patient uses tobacco products, current every day smoker. Patient uses alcohol on a daily basis. Patient/guardian denies using street drugs, No barriers to communication noted, The patient speaks fluent Romansh, Speaks appropriately for age. - Family history: Not pertinent. - : The pt / caregiver states he / she is not on anticoagulants. Home medication list is obtained from the patient. - Exposure Risk Screening:: None identified. Screenin:19 Screening information is obtained from the patient. Fall risk: No risks identified. dsf Assistance ADL's: requires no assistance with activities of daily living. Abuse/DV Screen: The patient / caregiver reports he/she is: not in a situation that causes fear, pain or injury. Nutritional screening: No deficits noted. Advance Directives: Currently, there is no health care proxy. home support is adequate. Assessment: 21:47 General: Appears in no apparent distress, comfortable, Behavior is appropriate for age, nn1 cooperative. General: Patient reports sharp pains that shoot from left leg up to left chest. . Pain: Location: left clavicle, anterior aspect of left upper chest, left breast, and left leg Pain currently is 10 out of 10 on a pain scale. Quality of pain is described as sharp, shooting, stabbing, "knife stabbing me". Neurological: Level of Consciousness is awake, alert, obeys commands, Oriented to person, place, time, Moves all extremities. Speech is normal, Facial symmetry appears normal, Patient reports gait is unsteady , reports weakness . Reports dizziness, numbness weakness Numbness in right leg x 3-4 days . Cardiovascular: Capillary refill < 3 seconds Heart tones S1 S2 present. Respiratory: Airway is patent Respiratory effort is even, unlabored, Respiratory pattern is regular, symmetrical, Breath sounds are clear bilaterally. Denies shortness of breath. GI: No deficits noted. Derm: Skin is pink, warm & dry. 22:19 Adult Sepsis Screening: The patient does not have new or worsening altered mentation. dsf Patient's respiratory rate is less than 22. Systolic blood pressure is greater than 100. Patient has a qSOFA score of 0- Negative Sepsis Screen. General: Appears in no apparent distress, Behavior is appropriate for age, cooperative. Neurological: Level of Consciousness is awake, alert, Oriented to person, place, time. Cardiovascular: Capillary refill < 3 seconds. Respiratory: Airway is patent Respiratory effort is even, unlabored, Respiratory pattern is regular, symmetrical. Derm: Skin is pink, warm & dry. Vital Signs: 19:23 BP 112 / 79; Pulse 84; Resp 16; Temp 96.8; Pulse Ox 99% on R/A; Weight 65.77 kg (R); elp Height 5 ft. 8 in. (172.72 cm) (R); 21:51 BP 127 / 91; Pulse 77; Resp 18; Temp 98(O); Pulse Ox 94% on R/A; Pain 10/10; nn1 19:23 Body Mass Index 22.05 (65.77 kg, 172.72 cm) elp Vitals: 19:23 Log In Time N/A - ambulance arrival. elp 22:20 Glucose Measurement D-stick deferred by provider. dsf ED Course: 19:21 Patient visited by Keith Morse, HOTEL SALES MANAGER. mdr 19:21 Patient moved to Waiting mdr 19:22 Merlene Dash is Private Physician. mdr 19:22 Patient moved to Pre RCE mdr 19:25 Patient visited by Niesha Levy, HOTEL SALES MANAGER. elp 19:34 Triage Initiated ttb 19:37 Patient moved to PR2 / 26 ttb 19:59 Patient visited by Jarek Ibrahim HOTEL SALES MANAGER. jmv 19:59 EKG done. (by ED staff). Reviewed by Keon Fowler MD. jmv 20:06 Patient moved to Pre RCE jmv 21:41 Patient moved to Triage 3 dsf 21:52 Patient visited by Evelio Lindsey RN. nn1 21:57 Junito Cotton FNP [facility]. ke 21:57 Patient visited by Junito Cotton FNP. ke 21:57 Patient visited by Junito Cotton FNP. ke 22:16 Merlene Dash is Referral Physician. ke 22:19 The patient / caregiver is instructed regarding the plan of care and ED course. dsf 22:19 No IV's were initiated during this patient's visit. No procedures done that require dsf assistance. 10/31 14:18 T-Sheet-- Draft Copy was scanned into [employer] and attached to record. gb 14:18 ECG/EKG was scanned into [employer] and attached to record. gb 22:11 EKG-ADULT Returned. EDMS Order Results: Radiology Order: EKG-ADULT Test: EKG-ADULT REASON FOR EXAMINATION: generalized weakness, arm chava; Stationary ECG Study; [facility] - ED; ; Test Date: 2016-10-30; Pat Name: RENE PADILLA Department:; Room: -; Gender: M Front End Architect: keely; : 1965 Requested By: RAISA SAMAYOA; Order Number: [id number] Reading MD: Ana Rosa Knowles; Measurements; Intervals [place]; Rate: 70 P: 67; AL: 177 QRS: 76; QRSD: 89 T: 71; QT: 364; QTc: 393; Interpretive Statements; SINUS RHYTHM; NSTTW ABNORMALITY; SIMILAR 08/21/15; Electronically Signed On 10-31-2016 21:48:27 EST by Ana Rosa Knowles; Outcome: 10/30 22:16 Discharge ordered by Provider. ke 22:19 Discharge Assessment: Patient awake, alert and oriented x 3. No cognitive and/or dsf functional deficits noted. Patient verbalized understanding of disposition instructions. patient administered narcotics - no. The following High Risk Discharge criteria are identified: None. Discharged to home ambulatory. Condition: stable. Discharge instructions given to patient, Instructed on discharge instructions, follow up and referral plans. medication usage, Demonstrated understanding of instructions, medications, Pt was receptive of discharge instructions/ teaching. Prescriptions given X 1. No special radiology studies were completed. Property sent home with patient. 22:20 Patient left the ED. dsf Signatures: Dispatcher [employer] EDMS Melida Keane, Reg Reg Junito Neville, BULBS FARMWORKER BULBS FARMWORKER Corrine Garcia,RN RN dsf Gracia Richmond RN RN ttb Niesha Levy, HOTEL SALES MANAGER HOTEL SALES MANAGER Evelio Guerrero,RN RN nn1 Keith Morse, HOTEL SALES MANAGER HOTEL SALES MANAGER Jarek Escudero, HOTEL SALES MANAGER HOTEL SALES MANAGER jmv Chart Complete MTDD
--- NOTE | 2016-11-01 23:22 | EDDOCDS ---
Physician Documentation [facility] Name: Maurice Almodovar Age: 51 yrs Sex: Male : 1965 Arrival Date: 10/30/2016 Time: 19:19 Bed Triage 3 Private MD: Merlene Dash C Disposition: 10/30/16 22:16 Discharged to Home/Self Care. Impression: Malaise and fatigue. - Condition is Stable. - Discharge Instructions: Weakness, Fatigue. - Prescriptions for Naprosyn 500 mg Oral Tablet - take 1 tablet by ORAL route 2 times per day take with food; 30 tablet. - Medication Reconciliation, Local Pharmacy Hours form. - Follow up: Merlene Dash; When: 4 - 5 days; Reason: Recheck today's complaints, Continuance of care. - Problem is an ongoing problem. - Symptoms are unchanged. Historical: - Allergies: Morphine (Upset stomach); - Home Meds: 1. none - PMHx: COPD; ETOH abuse; Heart AttackX2; - PSHx: Hernia repair- Left inguinal; Cholecystectomy; - Social history: Smoking status: Patient uses tobacco products, current every day smoker. Patient uses alcohol on a daily basis. Patient/guardian denies using street drugs, No barriers to communication noted, The patient speaks fluent German, Speaks appropriately for age. - Family history: Not pertinent. - : The pt / caregiver states he / she is not on anticoagulants. Home medication list is obtained from the patient. - Exposure Risk Screening:: None identified. Vital Signs: 10/30 19:23 BP 112 / 79; Pulse 84; Resp 16; Temp 96.8; Pulse Ox 99% on R/A; Weight 65.77 kg / 145 elp lbs (R); Height 5 ft. 8 in. (172.72 cm) (R); 21:51 BP 127 / 91; Pulse 77; Resp 18; Temp 98(O); Pulse Ox 94% on R/A; Pain 10/10; nn1 19:23 Body Mass Index 22.05 (65.77 kg, 172.72 cm) elp MDM: 19:38 ECG WITH READING ER PHYS+CARDIAG ordered. EDMS 10/31 14:18 T-Sheet-- Draft Copy was scanned into [employer] and attached to record. 14:18 ECG/EKG was scanned into [employer] and attached to record. gb Signatures: Dispatcher [employer] EDMelida Hill, Reg Reg gb Junito Cotton, BOB SYP Corrine GarciaRN RN Gracia Byrnes RN RN ttb The chart was reviewed and I authenticate all verbal orders and agree with the evaluation and treatment provided.Attachments: 14:18 T-Sheet-- Draft Copy gb 14:18 ECG/EKG gb Chart Complete MTDD
== END 2016-10-30 22:20 | disposition home or self-care (01) ==
LOC: M ED 19:19
DX: R53.81 Other malaise (principal); R53.83 Other fatigue; J44.9 Chronic obstructive pulmonary disease, unspecified; F10.10 Alcohol abuse, uncomplicated; I25.2 Old myocardial infarction; F17.210 Nicotine dependence, cigarettes, uncomplicated; Z88.5 Allergy status to narcotic agent

== ENCOUNTER 2017-01-03 18:21 | Emergency (ER) | payer OTHER ==
[~2017-01-03 18:21] MED LIST changes: -COLA100C PO; +COLA100C3 PO; +NORC1TAB4 PO; -NORC5TAB PO
[2017-01-03] MEDS ORDERED: IPRATROPIUM 0.5MG/ALBUTEROL 2.5MG INH SOL UD 3ML (DUONEB)(J7620) NEB ONE (19:15)
[2017-01-03] MEDS ORDERED: NS 1,000 ML IV ONE (19:15)
[2017-01-03] MEDS ORDERED: ONDANSETRON 4MG/2ML VIAL (J2405) IV ONE (19:15)
[2017-01-03] MEDS ORDERED: GASTROGRAFIN SOLUTION 30ML (Q9963) PO ONE ×2 (19:30)
[2017-01-03] MEDS: fentaNYL 100 MCG/2 ML INJECTION (J3010) IV PRN ×3 (19:40→22:16)
[2017-01-03] MEDS: NS 1,000 ML IV SCH ×3 (19:41→22:15)
[2017-01-03 20:05] LABS: BASO % 0.6 % (0.0-1.0); EOS # 0.1 K/mm3 (0.0-0.50); LARGE UNSTAINED CELL # 0.2 K/mm3 (0.0-0.4); LARGE UNSTAINED CELL % 2.6 % (0.0-4.0); LYMPH # 1.7 K/mm3 (1.5-4.5); LYMPH % 27.3 % (24.0-44.0); MEAN CORPUSCULAR HEMOGLOBIN 32.9 pg (27.0-33.0); MEAN CORPUSCULAR HGB CONC 33.7 g/dl (32.0-36.5); MEAN CORPUSCULAR VOLUME 97.4 fl (80.0-96.0); MONO # 0.3 K/mm3 (0.0-0.8); MONO % 5.9 % (0.0-5.0); NEUTROPHILS # 3.5 K/mm3 (1.8-7.7); NEUTROPHILS % 61.7 % (36.0-66.0); PLATELET COUNT, AUTOMATED 260 k/mm3 (150-450); RED CELL DISTRIBUTION WIDTH 11.9 % (11.5-14.5); WHITE BLOOD COUNT 5.7 K/mm3 (4.0-10.0)
[2017-01-03 20:11] LABS: ALBUMIN 4.2 GM/DL (3.2-5.2); ALBUMIN/GLOBULIN RATIO 1.35 (1.00-1.93); ALKALINE PHOSPHATASE 51 U/L (45-117); ALT/SGPT 71 U/L (12-78); ANION GAP 11 MEQ/L (8-16); AST/SGOT 83 U/L (15-37); BILIRUBIN,DIRECT 0.1 MG/DL (0.0-0.2); BILIRUBIN,TOTAL 0.4 MG/DL (0.2-1.0); BLOOD UREA NITROGEN 7 MG/DL (7-18); CALCIUM LEVEL 8.5 MG/DL (8.5-10.1); CARBON DIOXIDE LEVEL 26 MEQ/L (21-32); CHLORIDE LEVEL 100 MEQ/L (98-107); CREATININE FOR GFR 0.98 MG/DL (0.70-1.30); GLOMERULAR FILTRATION RATE > 60.0 (>56); GLUCOSE, FASTING 72 MG/DL (70-105); POTASSIUM SERUM 3.9 MEQ/L (3.5-5.1); SODIUM LEVEL 137 MEQ/L (136-145); TOTAL PROTEIN 7.3 GM/DL (6.4-8.2)
[2017-01-03] MEDS ORDERED: ISOVUE-370 76% 100ML VIAL (Q9967) As Ordered ONE (21:12)
--- NOTE | 2017-01-03 22:10 | REPUSA ---
CT of the abdomen and pelvis with contrast Clinical statement: Pain. Technique: Multiple axial CT images were obtained from the base of the lungs through the floor of the pelvis utilizing 5 mm axial slices after administration of oral and nonionic intravenous contrast. C oronal and sagittal reconstructions were also obtained. Comparison: 05/12/2016. Findings: Chest: The visualized lung bases are clear. Abdomen: The spleen, pancreas, kidneys,and adrenal glands are unremarkable. The patient is status pos t cholecystectomy. There is diffuse low attenuation of the liver. No focal hepatic masses identified. The aorta is within normal limits. There is no evidence of abdominal lymphadenopathy or ascites. Pelvis: The bowel is unremarkable, with no obstructive or inflammatory changes. The appendix is josé luis l. The urinary bladder is within normal limits. The other pelvic structures appear grossly intact. Th ere is no evidence of pelvic lymphadenopathy or ascites. Bones: There are no suspicious osseous abnormalities seen. Impression: 1. No acute findings to explain the patient's pain. 2. Fatty infiltration of the liver.
[2017-01-03] MEDS ORDERED: IPRASOL4 IN (22:23)
[2017-01-03] MEDS ORDERED: ALBU83IN INH (22:23)
[2017-01-03 22:42] VITALS: BP 105/67
--- NOTE | 2017-01-04 09:04 | REP ---
CHEST X-RAY PA AND LATERAL: 01/03/2017. Comparison: 03/22/2016. Clinical history: Abdominal pain. Findings: The lung mason are well inflated. On the lateral view there is increased AP diameter of the chest and a prominent retrosternal clear space consistent with COPD. There is apical pleuroparenchymal scarring, right greater than left, unchanged. Underlying interstitial fibrotic changes are seen with some pulmonary artery hypertension. No effusion, infiltrate, nodule or mass. No cardiomegaly or edema. The aorta is mildly tortuous without aneurysm. Airway intact. Bones unremarkable. There is no free air under the diaphragm. Impression: 1. COPD with pulmonary artery hypertension, some fibrosis and apical pleural scarring. 2. No cardiomegaly, edema, effusion, infiltrate, atelectasis or mass. Signed by Nikhil Loaiza MD 01/04/2017 02:59 P
--- NOTE | 2017-01-06 08:41 | ECGEPIP ---
Stationary ECG Study [facility] - ED Test Date: 2017-01-03 Pat Name: RENE PADILLA Department: Room: - Gender: M Child Day Care Provider: : 1965 Requested By: GABRIELLA ROJAS Order Number: [id number] Reading MD: Alma Delia Stokes Measurements Intervals Palmer Rate: 59 P: -30 AK: 166 QRS: 79 QRSD: 91 T: 71 QT: 414 QTc: 412 Interpretive Statements SINUS BRADYCARDIA nonspecific st t wave changes prwp cw 10/30/16 rate decreased similar morphology Electronically Signed On 01-06-2017 8:40:55 EDT by Alma Delia Stokes
== END 2017-01-03 22:54 | disposition home or self-care (01) ==
LOC: M ED 21:43
DX: J44.1 Chronic obstructive pulmonary disease with (acute) exacerbation (principal); F10.10 Alcohol abuse, uncomplicated; F17.200 Nicotine dependence, unspecified, uncomplicated; I25.2 Old myocardial infarction; K76.9 Liver disease, unspecified; I27.89 Other specified pulmonary heart diseases; Z88.5 Allergy status to narcotic agent
CPT/HCPCS: 71020; 74177; 80048; 80076; 81001; 82550; 82553; 83605; 83690; 85025; 93005; 93041; 94640; 96374; 96375; 96376; 99285; J2405; J3010; Q9963; Q9967

== ENCOUNTER 2017-05-05 17:44 | Emergency (ER) | payer OTHER ==
[~2017-05-05] VITALS: Ht 172.7 cm; Wt 61.0 kg
[~2017-05-05 17:44] MED LIST changes: +ALBU83IN INH; -COLA100C3 PO; +COLA100C5 PO; -CYCL5TA PO; +CYCL5TAB PO; +IPRASOL4 IN; -RISP2TAB30 PO; +RISP2TAB32 PO; +TRAZ-136 PO; -TRAZ100T4 PO
[2017-05-05] MEDS ORDERED: IBUP-1022 PO (19:06)
[2017-05-05 19:13] VITALS: BP 110/71
--- NOTE | 2017-05-06 07:58 | REP ---
Left ribs and PA chest: Comparison is 01/03/2007. There are question of a nondisplaced fractures at the anterior ends of the left eighth eleventh ribs one view only. This should be correlated with clinical point tenderness. No other rib fractures are identified. PA chest: There is no pneumothorax, hemothorax or pulmonary contusion. Lung mason are clear. Cardiac size is normal. The bradly, mediastinum, and bony thorax are unremarkable. Impression: Negative PA chest. Signed by Luis Saxena MD 05/06/2017 07:49 A
== END 2017-05-05 19:41 | disposition home or self-care (01) ==
LOC: M ED 17:44
DX: S20.219A Contusion of unspecified front wall of thorax, initial encounter (principal); W19.XXXA Unspecified fall, initial encounter; Y92.9 Unspecified place or not applicable; Y93.9 Activity, unspecified; Y99.9 Unspecified external cause status; J44.9 Chronic obstructive pulmonary disease, unspecified; F17.200 Nicotine dependence, unspecified, uncomplicated; Z82.49 Family history of ischemic heart disease and other diseases of the circulatory system; Z79.899 Other long term (current) drug therapy; Z88.5 Allergy status to narcotic agent

== ENCOUNTER 2017-05-18 16:02 | Inpatient (IN) | payer OTHER ==
[~2017-05-18] VITALS: Ht 172.7 cm; Wt 62.8 kg
[~2017-05-18 16:02] MED LIST changes: +IBUP-1022 PO
[2017-05-18 16:45] LABS: MEAN CORPUSCULAR HEMOGLOBIN 33.6 pg (27.0-33.0); MEAN CORPUSCULAR HGB CONC 34.6 g/dl (32.0-36.5); RED CELL DISTRIBUTION WIDTH 12.2 % (11.5-14.5); WHITE BLOOD COUNT 5.9 K/mm3 (4.0-10.0)
[2017-05-18 17:01] LABS: METHADONE URINE NEGATIVE (NEGATIVE)
[2017-05-18 17:10] LABS: ALBUMIN 3.8 GM/DL (3.2-5.2); ALBUMIN/GLOBULIN RATIO 1.19 (1.00-1.93); ALKALINE PHOSPHATASE 64 U/L (45-117); ALT/SGPT 43 U/L (12-78); ANION GAP 14 MEQ/L (8-16); AST/SGOT 42 U/L (15-37); BILIRUBIN,DIRECT 0.1 MG/DL (0.0-0.2); BILIRUBIN,TOTAL 0.3 MG/DL (0.2-1.0); BLOOD UREA NITROGEN 8 MG/DL (7-18); CALCIUM LEVEL 8.2 MG/DL (8.5-10.1); CARBON DIOXIDE LEVEL 23 MEQ/L (21-32); CHLORIDE LEVEL 104 MEQ/L (98-107); CREATININE FOR GFR 0.92 MG/DL (0.70-1.30); GLOMERULAR FILTRATION RATE > 60.0 (>56); GLUCOSE, FASTING 79 MG/DL (70-105); POTASSIUM SERUM 3.5 MEQ/L (3.5-5.1); SODIUM LEVEL 141 MEQ/L (136-145)
[2017-05-18] MEDS ORDERED: DIVALPROEX 500 MG TAB PO SCH (21:00)
[2017-05-18] MEDS ORDERED: NICOTINE 21MG/24HR 1 EA TRANSDERMAL TD SCH (21:00)
[2017-05-18] MEDS: QUEtiapine FUMARATE 100 MG TAB PO SCH (21:00)
[2017-05-18] MEDS ORDERED: MAALOX 30 ML SUSP *UDC PO PRN (23:15)
[2017-05-18] MEDS ORDERED: MOM 30ML SUSPENSION UDC PO PRN (23:15)
[2017-05-18] MEDS ORDERED: ACETAMINOPHEN TAB 650MG DOSE (2X325MG) PO PRN (23:15)
[2017-05-18 23:56] VITALS: BP 117/74
[2017-05-19 00:25] VITALS: BP 117/74
[2017-05-19] MEDS ORDERED: LORazepam 2 MG TAB PO PRN (00:30)
[2017-05-19] MEDS ORDERED: THIAMINE 100 MG TAB PO ONE (01:00)
[2017-05-19 06:43] VITALS: BP 120/76
[2017-05-19 08:46] VITALS: BP 111/67
[2017-05-19] MEDS ORDERED: DIVALPROEX 500 MG TAB PO SCH (09:00)
[2017-05-19] MEDS: THIAMINE 100 MG TAB PO SCH ×2 (09:25→20:54)
[2017-05-19] MEDS: FOLIC ACID 1 MG TAB PO SCH (09:25)
[2017-05-19] MEDS: MULTIVITAMINS/MINERALS THERAP 1 TAB PO SCH (09:25)
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
[2017-05-19] MEDS: DIVALPROEX 500 MG TAB PO SCH ×2 (16:00→20:54)
[2017-05-19 17:37] VITALS: BP 144/88
[2017-05-19] MEDS: OLANZapine 5 MG TAB PO PRN (17:43)
[2017-05-19 18:00] VITALS: BP 144/84
[2017-05-19] MEDS: QUEtiapine FUMARATE 100 MG TAB PO SCH (20:54)
[2017-05-19] MEDS: PALIPERIDONE 3 MG ER TAB (INVEGA) PO SCH (20:54)
--- NOTE | 2017-05-19 21:59 | HPE ---
DATE OF ADMISSION: 05/18/2017 Please refer to the psychiatric history and evaluation for further details on this admission. This examination and history is intended for medical issues which may need treatment, followup, or consult on this 52-year-old male. ALLERGIES: MORPHINE. HOME MEDICATIONS: None. PRIMARY CARE PROVIDER: He currently does not have one. PAST MEDICAL HISTORY: Coronary artery disease, myocardial infarction (DE) times two, one in 1988 and one in 1993, back pain/degenerative disc disease, chronic knee pain, history of asbestos exposure/pulmonary nodule, history of rib fractures, history of pancreatitis, gastroesophageal reflux disease (GERD). He had a CT of the brain 01/25/2016, no acute disease. He had bilateral knee x-rays 01/25/2016, small amount of spurring on the right, otherwise negative. MRI lumbosacral (LS) spine 2015, showed disc bulge L2-L3, L4, and L5 disc bulge L5-S1 abutting the S1 nerves. PAST SURGICAL HISTORY: Left inguinal hernia repair times two, cholecystectomy, EGD 2012. SOCIAL HISTORY: He lives in [place]. He is . He smokes one and a half packs of cigarettes per day. He drinks 20-30 beers per day. FAMILY HISTORY: Mother is in her 60s, unknown. Father , cause unknown to patient. LABORATORY STUDIES: WBC 5.9, hemoglobin 13.7, hematocrit 39.7, MCV 97, MCH 33.6. Electrolytes were normal. BUN was 8, creatinine 0.92, calcium 8.2, AST slightly high at 42. EtOH was 0.300. EKG on file 08/21/2015, shows sinus rhythm with nonspecific ST-T wave abnormalities, similar when compared to previous. PHYSICAL EXAMINATION: 52-year-old male who looks much older than his stated years. Height 68 inches, weight 62.1 kg, body mass index (BMI) 20.8. Blood pressure 120/76, pulse 74, respirations 18, temperature 98. Patient is alert and oriented times three. Pupils equal and reactive to light. Extraocular movements are intact. Cornea and sclerae clear. Conjunctivae is normal. No facial asymmetry. Pharynx, tongue, gums pink and moist. Tongue is midline. Poor dentition. NECK: Supple without lymphadenopathy. No thyromegaly. No goiter. Carotids 2+ without bruit. CHEST: Clear to auscultation without wheeze or retraction. HEART: Regular. ABDOMEN: Benign. Bowel sounds positive. GENITOURINARY/RECTAL: Not done. EXTREMITIES: Show equal strength. Full range of motion. No cyanosis, clubbing, or edema. Peripheral pulses equal and palpable bilaterally. SKIN: Warm and dry. IMPRESSION/PLAN: 1. Psychiatric plan per psychiatry. 2. Monitor for alcohol withdrawal. 3. Coronary artery disease, prior myocardial infarction (DE). Currently clinically stable. Continue to followup with his primary care provider. 4. Chronic back pain, degenerative disc disease, chronic knee pain. Clinically stable. No acute medical issues.
[2017-05-20 06:31] VITALS: BP 95/53
[2017-05-20 06:36] VITALS: BP 95/53
[2017-05-20 07:27] LABS: ALBUMIN 3.5 GM/DL (3.2-5.2); ALBUMIN/GLOBULIN RATIO 1.13 (1.00-1.93); BILIRUBIN,DIRECT 0.2 MG/DL (0.0-0.2); BILIRUBIN,TOTAL 0.4 MG/DL (0.2-1.0); TOTAL PROTEIN 6.6 GM/DL (6.4-8.2)
[2017-05-20 08:00] VITALS: BP 95/53
[2017-05-20] MEDS: DIVALPROEX 500 MG TAB PO SCH (09:06)
[2017-05-20] MEDS: PALIPERIDONE 3 MG ER TAB (INVEGA) PO SCH ×2 (09:07→20:15)
[2017-05-20] MEDS: MULTIVITAMINS/MINERALS THERAP 1 TAB PO SCH (09:07)
[2017-05-20] MEDS: THIAMINE 100 MG TAB PO SCH ×2 (09:07→20:14)
[2017-05-20] MEDS: FOLIC ACID 1 MG TAB PO SCH (09:07)
--- NOTE | 2017-05-20 10:33 | MHIPNPDOC ---
[facility] Progress Note Progress Note DATE OF SERVICE: 05/20/17 HISTORY: day 3 of admission for HI while intoxicated VITAL SIGNS: See below. NEW TEST RESULTS: pt had a BAL of 0.30 on admission CURRENT MEDICATIONS: See below. MENTAL STATUS EXAMINATION: Patient is a 52-year old male, who appears 30 years older than his age. Light colored hair that almost reaches his shoulders, thin, wearing hospital attire. Speech: Is clear, spontaneous. Language skills are adequate Thought processes including: goal directed. Thought content: appropriate. Abstract reasoning, and computation: fair. Description of associations: fair. Description of abnormal or psychotic thoughts: denies psychotic symptoms, denies SI and HI. No delusions voiced. Judgment: poor. Insight: poor. Orientation: oriented to place, time, person and surroundings. Recent and remote memory: fair Attention span and concentration: adequate. Fund of knowledge: Full Mood: pleasant. Affect: congruent. DIAGNOSES: 1. Unspecified mood disorder, R/O alcohol induced mood disorder 2. Cluster B personality disorder (antisocial/narcissistic) 3. Alcohol use disorder, severe ASSESSMENT:met with pt for 1:1. He is taking care of hygiene needs this morning. He is concerned about his medication, stating "nothing works for me." Denies psychotic symptoms. States he has taken depakote in the past with little effect. Pt asked to attend unit programming and he agreed, "as long as I am not woozy". Lucy discussed with patient who is "thinking it over". He says alcohol is one of the few pleasures he has left. He enjoys his dog and has a supportive neighbor. MANAGEMENT PLAN: continue meds as ordered by Dr. Lomeli. Monitory Sleep, safety and po intake. Continue close observation. By history pt is completely noncompliant with discharge instructions/recommendations. Chronic alcoholism. TIME SPENT: 25 minutes. Vital Signs Vital Signs Date Time Temp Pulse Resp B/P (MAP) Pulse Ox O2 Delivery O2 Flow Rate FiO2 05/20/17 08:00 81 95/53 05/20/17 06:36 99.4 18 Room Air 05/18/17 23:37 97 Laboratory Data 24H Labs Laboratory Tests 2 05/20/17 06:42: Aspartate Amino Transf (AST/SGOT) 28, Alanine Aminotransferase (ALT/SGPT) 35, Alkaline Phosphatase 55, Total Bilirubin 0.4, Direct Bilirubin 0.2, Total Protein 6.6, Albumin 3.5, Albumin/Globulin Ratio 1.13 Current Medications Current Medications Acetaminophen (Tylenol Tab) 650 mg Q6HP PRN PO HEADACHE or DISCOMFORT; Start at 23:15; Stop 06/17/17 at 23:14 Al Hydrox/Mg Hydrox/Simethicone (Mylanta) 30 ml Q4HP PRN PO HEARTBURN/ INDIGESTION; Start 05/18/17 at 23:15; Stop 06/17/17 at 23:14 Divalproex Sodium (Depakote) 250 mg TID PO Last administered on 05/20/17 09:06 ; Start 05/19/17 at 16:00; Stop 06/18/17 at 08:59 Divalproex Sodium (Depakote) 500 mg BID PO ; Start 05/18/17 at 21:00; Stop 05/19 at 00:28; Status DC Divalproex Sodium (Depakote) 500 mg BID PO Last administered on 05/19/17 09:26 ; Start 05/19/17 at 09:00; Stop 05/19/17 at 10:07; Status DC Folic Acid (Folic Acid) 1 mg DAILY PO Last administered on 05/20/17 09:07; Start 05/19/17 at 09:00; Stop 06/18/17 at 08:59 Home Med (Med Rec Complete!) ASDIRECTED XX ; Start 05/18/17 at 23:00; Stop at 23:00; Status DC Lorazepam (Ativan) 2 mg ASDIRECTED PRN PO SEE PROTOCOL; Start 05/19/17 at 00:30 ; Stop 05/26/17 at 00:29 Magnesium Hydroxide (Milk Of Magnesia) 30 ml DAILYPRN PRN PO CONSTIPATION; Start 05/18/17 at 23:15; Stop 06/17/17 at 23:14 Multivitamins (Theragram-M) 1 tab DAILY PO Last administered on 05/20/17 09:07 ; Start 05/19/17 at 09:00; Stop 06/18/17 at 08:59 Nicotine (Nicoderm Cq 21mg) 1 patch QHS TD ; Start 05/18/17 at 21:00; Stop 05/19 at 00:27; Status DC Olanzapine (ZyPREXA) 5 mg Q4HP PRN PO ANXIETY/AGITATION Last administered on 17:43; Start 05/18/17 at 23:15; Stop 06/17/17 at 23:14 Paliperidone (Invega) 3 mg BID PO Last administered on 05/20/17 09:07; Start 05/19/17 at 21:00; Stop 06/18/17 at 20:59 Quetiapine Fumarate (SEROquel) 100 mg QHS PO Last administered on 05/19/17 20: 54; Start 05/18/17 at 21:00; Stop 06/17/17 at 20:59 Thiamine HCl (Thiamine HCl) 100 mg BID PO Last administered on 05/20/17 09:07 ; Start 05/19/17 at 09:00; Stop 05/22/17 at 08:59 Allergies Coded Allergies: Morphine (Verified Adverse Reaction, Mild, UPSET STOMACH, 02/20/16) Heidy Kaur May 20, 2017 10:33
[2017-05-20] MEDS: DIVALPROEX 250 MG TAB PO SCH ×2 (17:12→20:14)
[2017-05-20 18:00] VITALS: BP 106/67
[2017-05-20] MEDS: QUEtiapine FUMARATE 100 MG TAB PO SCH (20:14)
[2017-05-21 07:02] VITALS: BP 117/81
[2017-05-21] MEDS: FOLIC ACID 1 MG TAB PO SCH (08:16)
[2017-05-21] MEDS: MULTIVITAMINS/MINERALS THERAP 1 TAB PO SCH (08:16)
[2017-05-21] MEDS: PALIPERIDONE 3 MG ER TAB (INVEGA) PO SCH (08:17)
[2017-05-21] MEDS: THIAMINE 100 MG TAB PO SCH ×2 (08:17→20:01)
[2017-05-21] MEDS: DIVALPROEX 250 MG TAB PO SCH ×3 (08:17→20:01)
[2017-05-21] MEDS ORDERED: risperiDONE LONG-ACTING 25 MG/2 ML INJ (J2794) IM SCH (09:00)
--- NOTE | 2017-05-21 16:23 | MHIPNPDOC ---
[facility] Progress Note Progress Note DATE OF SERVICE: 05/21/17 HISTORY: day 4 of admission for HI when intoxicated. VITAL SIGNS: See below. NEW TEST RESULTS: na CURRENT MEDICATIONS: See below. MENTAL STATUS EXAMINATION: ASSESSMENT: discussed using a CROW for pt since he has an extensive h/o noncompliance. He liked the idea. Since he does not have a dx o schizophrenia I can only offer him Abilify Maintena or Risperidone. Chose Risperidone for efficacy. He accepted the injection. He states he will follow up at [facility] as he likes them the best. We will schedule a med mgt appt for him there. Pt offered Revia or Campral for alcohol cessation but he declined. Pt educated on risks and benefits associated with the use of Risperidone. He was laughing as gynecomastica was explained. He agrees to report any breast size increase or breast discharge. He is encouraged to eat regularly but he sometimes runs out of food. Pt is requesting discharge. May be able to leave tomorrow if arrangements for follow up are able to be made for him & he does not experience any side effects to his injection. He lives in [place] and would take a cab home. Eating well and attending to hygiene. Pleasant on approach. No behavior problems. Adheres to unit protocols. Sleep is good. MANAGEMENT PLAN: monitor effectiveness of medication. continue close observation , enc milieu activities. TIME SPENT: 25 minutes. Vital Signs Vital Signs Date Time Temp Pulse Resp B/P (MAP) Pulse Ox O2 Delivery O2 Flow Rate FiO2 05/21/17 07:02 97.0 85 18 117/81 (93) Room Air 05/18/17 23:37 97 Current Medications Current Medications Acetaminophen (Tylenol Tab) 650 mg Q6HP PRN PO HEADACHE or DISCOMFORT; Start at 23:15; Stop 06/17/17 at 23:14 Al Hydrox/Mg Hydrox/Simethicone (Mylanta) 30 ml Q4HP PRN PO HEARTBURN/ INDIGESTION; Start 05/18/17 at 23:15; Stop 06/17/17 at 23:14 Divalproex Sodium (Depakote) 250 mg TID PO Last administered on 05/20/17t 09:06 ; Start 05/19/17 at 16:00; Stop 05/20/17 at 16:48; Status DC Divalproex Sodium (Depakote) 250 mg TID PO Last administered on 05/21/17 15:16 ; Start 05/20/17 at 16:00; Stop 06/19/17 at 15:59 Divalproex Sodium (Depakote) 500 mg BID PO ; Start 05/18/17 at 21:00; Stop 05/19 at 00:28; Status DC Divalproex Sodium (Depakote) 500 mg BID PO Last administered on 05/19/17 09:26 ; Start 05/19/17 at 09:00; Stop 05/19/17 at 10:07; Status DC Folic Acid (Folic Acid) 1 mg DAILY PO Last administered on 05/21/17 08:16; Start 05/19/17 at 09:00; Stop 06/18/17 at 08:59 Home Med (Med Rec Complete!) ASDIRECTED XX ; Start 05/18/17 at 23:00; Stop at 23:00; Status DC Lorazepam (Ativan) 2 mg ASDIRECTED PRN PO SEE PROTOCOL; Start 05/19/17 at 00:30 ; Stop 05/26/17 at 00:29 Magnesium Hydroxide (Milk Of Magnesia) 30 ml DAILYPRN PRN PO CONSTIPATION; Start 05/18/17 at 23:15; Stop 06/17/17 at 23:14 Multivitamins (Theragram-M) 1 tab DAILY PO Last administered on 05/21/17 08:16 ; Start 05/19/17 at 09:00; Stop 06/18/17 at 08:59 Nicotine (Nicoderm Cq 21mg) 1 patch QHS TD ; Start 05/18/17 at 21:00; Stop 05/19 at 00:27; Status DC Olanzapine (ZyPREXA) 5 mg Q4HP PRN PO ANXIETY/AGITATION Last administered on 17:43; Start 05/18/17 at 23:15; Stop 06/17/17 at 23:14 Paliperidone (Invega) 3 mg BID PO Last administered on 05/21/17 08:17; Start 05/19/17 at 21:00; Stop 06/18/17 at 20:59 Quetiapine Fumarate (SEROquel) 100 mg QHS PO Last administered on 05/20/17 20: 14; Start 05/18/17 at 21:00; Stop 06/17/17 at 20:59 Risperidone (RisperDAL CONSTA) 25 mg Q14D@09 IM Last administered on 05/21/17 11:39; Start 05/21/17 at 09:00; Stop 06/20/17 at 08:59 Thiamine HCl (Thiamine HCl) 100 mg BID PO Last administered on 05/21/17 08:17 ; Start 05/19/17 at 09:00; Stop 05/22/17 at 08:59 Allergies Coded Allergies: Morphine (Verified Adverse Reaction, Mild, UPSET STOMACH, 02/20/16) Heidy Kaur May 21, 2017 16:23
[2017-05-21 18:12] VITALS: BP 114/82
[2017-05-21] MEDS ORDERED: QUEtiapine FUMARATE 100 MG TAB PO SCH (21:00)
[2017-05-22 06:41] VITALS: BP 121/71
[2017-05-22] MEDS: OLANZapine 5 MG TAB PO PRN (08:42)
[2017-05-22] MEDS: MULTIVITAMINS/MINERALS THERAP 1 TAB PO SCH (08:42)
[2017-05-22] MEDS: FOLIC ACID 1 MG TAB PO SCH (08:42)
[2017-05-22] MEDS: DIVALPROEX 250 MG TAB PO SCH (08:42)
[2017-05-22] MEDS ORDERED: RISP25INJ IM (09:19)
[2017-05-22] MEDS ORDERED: FOLI1TAB4 PO (09:19)
[2017-05-22] MEDS ORDERED: QUET1TAB8 PO (09:19)
[2017-05-22] MEDS ORDERED: DEPA250T32 PO (09:19)
[2017-05-22] MEDS ORDERED: OLAN5TAB PO (10:32)
--- NOTE | 2017-06-11 15:55 | MHDSPDOC ---
[facility] Discharge Summary Discharge Summary DATE OF ADMISSION: May 18, 2017 at 23:08 DATE OF DISCHARGE: May 22, 2017 at 10:30 Late entry for 05/22/17 DISCHARGE DIAGNOSES: 1. Unspecified mood disorder, R/O alcohol induced mood disorder 2. Cluster B personality disorder (antisocial/narcissistic) 3. Alcohol use disorder, severe REASON FOR ADMISSION: homicidal threats while intoxicated, Police brought him to ed. Long h/o psychiatric problems and alcohol abuse. CONSULTANTS INVOLVED: na TREATMENT AND PROGRESS ON THE UNIT : pt was highly agitated when first admitted. he would not attend groups. his interactions with staff were not very pleasant and his speech was often inappropriate. after 24 hours he was more reasonable and cooperative. Though he did not attend groups he would interact with staff for 1`:1 and offer insight into what he was thinking. He has a long history of [place] and [place] and has very little support in the community. He has alienated most of his family. He is not fond of his apartment but he knows the area and the people in the neighborhood and feels comfortable there. Pt is mostly non-compliant with MH treatment once he leaves the inpatient setting. He rarely keeps appointments or maintains a treatment regime of his meds. Pt gradually paid some attention to hygiene needs. He was disheveled on admission. He also was agreeable to the Risperidone injection for better control of his bipolar disorder. Appetite and sleep were good. HOSPITAL COURSE: Pt tolerated Risperidone consta injection well. He also Depakote to help with impulse control and mood. He was willing to restart Seroquel at . DISCHARGE ASSESSMENT:shortly after injection pt was requesting discharge. We were able to have him cooperate with remaining inpatient for a few days to assess his tolerance to the medications. He was no longer homicidal and denied suicidal thoughts and was never reported as suicidal. he refused all efforts to get him involved in alcohol treatment. MENTAL STATUS EXAMINATION ON DISCHARGE: Mental Status Exam: General appearance: Patient is a 52-year old male, who is alert, guarded, irritable, disheveled, dressed in hospital clothes, with adequate hygiene and good eye contact Speech: Spontaneous and fluid Thought processes: Intact Thought content: Coherent Abstract reasoning and computation: Limited Description of associations: Good Description of abnormal or psychotic thoughts: He denies auditory and visual hallucinations, denies thought delusions and denies suicidal and homicidal ideation Judgment: limited Insight: limited Orientation: Oriented 3 Recent and remote memory: Fair Attention span and concentration: Fair Fund of knowledge: Adequate Mood: euthymic Affect: Congruent to mood MEDICATIONS ON DISCHARGE: - Risperidone consta for mood stability - seroquel 50 mg for insomnia - depakote for impulse control -olanzapine prn for anxiety PLAN/FOLLOWUP ARRANGEMENTS: [facility], & Nenita Geiger. The amount of time spent in the coordination of care for this patient was approximately 30 minutes. Medications Scheduled Divalproex Sodium (Depakote) 250 Mg Tab, 250 MG PO TID for MOOD for 7 Days, #21 this medication is helpful for impulse control. if you prefer to take all 3 tabs together at bedtime you may. Folic Acid (Folic Acid) 1 Mg Tab, 1 MG PO DAILY for vitamin for 7 Days, #7 Quetiapine Fumerate (Quetiapine Fumarate) 100 Mg Tab, 50 MG PO QHS for mood & insomnia for 7 Days, #3.5 Risperidone (Risperdal Consta) 25 Mg/2 Ml Inj, 25 MG IM Q14D@09 for bipolar disorder for 14 Days, #1 1 injection 25 mg q 14 days, next injection due on 06/04/17. Scheduled PRN Olanzapine (Olanzapine) 5 Mg Tab, 5 MG PO Q4HP PRN for ANXIETY/AGITATION for 7 Days, #7 only take when needed for extreme agitation. Allergies Coded Allergies: Morphine (Verified Adverse Reaction, Mild, UPSET STOMACH, 02/20/16) Heidy Kaur Jun 11, 2017 15:55
== END 2017-05-22 10:30 | disposition home or self-care (01) | DRG 753 ==
LOC: M ED 16:02 → M ED INP 23:08 → M PSY 23:50
PROVIDERS: ADMIT Psychiatry & Neurology Psychiatry; ATTEND Psychiatry & Neurology Psychiatry
DX: F39 Unspecified mood [affective] disorder (principal); F10.10 Alcohol abuse, uncomplicated; F60.81 Narcissistic personality disorder; F60.2 Antisocial personality disorder; F60.3 Borderline personality disorder; Z88.5 Allergy status to narcotic agent; I25.10 Atherosclerotic heart disease of native coronary artery without angina pectoris; I25.2 Old myocardial infarction; K21.9 Gastro-esophageal reflux disease without esophagitis; M51.36 Other intervertebral disc degeneration, lumbar region

== ENCOUNTER 2017-07-03 20:33 | Observation (INO) | payer OTHER ==
[~2017-07-03] VITALS: Ht 175.3 cm; Wt 63.6 kg
[~2017-07-03 20:33] MED LIST changes: +FOLI1TAB4 PO; +OLAN5TAB PO; +QUET1TAB8 PO; +RISP25INJ IM
[2017-07-03] MEDS ORDERED: PANTOPRAZOLE 40MG INJ (PROTONIX) (C9113) IV ONE (21:30)
[2017-07-03] MEDS ORDERED: GI COCKTAIL 50ML BTL(HYOSCYAMINE/MAALOX/LIDOCAINE VISCOUS)(1:3:1) PO ONE (21:30)
[2017-07-03 22:00] LABS: BASO % 0.5 % (0.0-1.0); EOS # 0.1 10^3/uL (0.0-0.50); EOS % 1.6 % (0.0-3.0); IMMATURE GRANULOCYTE % 0.5 % (0-0); LYMPH % 27.6 % (24.0-44.0); MEAN CORPUSCULAR HEMOGLOBIN 33.3 pg (27.0-33.0); MEAN CORPUSCULAR HGB CONC 33.8 g/dl (32.0-36.5); MEAN CORPUSCULAR VOLUME 98.5 fl (80.0-96.0); MONO # 0.3 10^3/uL (0.0-0.8); MONO % 8.9 % (0.0-5.0); NEUTROPHILS # 2.3 10^3/uL (1.8-7.7); NEUTROPHILS % 60.9 % (36.0-66.0); PLATELET COUNT, AUTOMATED 129 10^3/uL (150-450); RED CELL DISTRIBUTION WIDTH 11.9 % (11.5-14.5); WHITE BLOOD COUNT 3.7 10^3/uL (4.0-10.0)
[2017-07-03 22:25] LABS: ALBUMIN 3.9 GM/DL (3.2-5.2); ALBUMIN/GLOBULIN RATIO 1.26 (1.00-1.93); ALKALINE PHOSPHATASE 53 U/L (45-117); ALT/SGPT 31 U/L (12-78); ANION GAP 11 MEQ/L (8-16); AST/SGOT 29 U/L (15-37); BILIRUBIN,DIRECT < 0.1 MG/DL (0.0-0.2); BILIRUBIN,TOTAL 0.3 MG/DL (0.2-1.0); BLOOD UREA NITROGEN 7 MG/DL (7-18); CALCIUM LEVEL 8.5 MG/DL (8.5-10.1); CARBON DIOXIDE LEVEL 23 MEQ/L (21-32); CHLORIDE LEVEL 104 MEQ/L (98-107); CREATININE FOR GFR 0.87 MG/DL (0.70-1.30); GLOMERULAR FILTRATION RATE > 60.0 (>56); GLUCOSE, FASTING 91 MG/DL (70-105); POTASSIUM SERUM 3.6 MEQ/L (3.5-5.1); SODIUM LEVEL 138 MEQ/L (136-145)
[2017-07-03] MEDS ORDERED: ISOVUE-370 76% 100ML VIAL (Q9967) As Ordered ONE (22:45)
[2017-07-03 22:56] LABS: INR 0.96
[2017-07-03] MEDS ORDERED: ONDANSETRON 4MG/2ML VIAL (J2405) IV ONE (23:00)
[2017-07-03] MEDS ORDERED: fentaNYL 100 MCG/2 ML INJECTION (J3010) IV ONE (23:00)
--- NOTE | 2017-07-03 23:20 | REPUSA ---
CT of the abdomen and pelvis with contrast Clinical statement: Pain. Pancreatitis. Technique: Multiple axial CT images were obtained from the base of the lungs through the floor of the pelvis utilizing 5 mm axial slices after administration of oral and nonionic intravenous contrast. C oronal and sagittal reconstructions were also obtained. Comparison: 01/03/2017. Findings: Chest: The visualized lung bases are clear. Abdomen: The liver, spleen, pancreas, kidneys, and adrenal glands are stable. Diffuse low attenuation of the hepatic parenchyma is unchanged. The aorta is within normal limits. There is no evidence of a bdominal lymphadenopathy or ascites. Pelvis: The bowel is unremarkable, with no obstructive or inflammatory changes. There is a small righ t inguinal hernia containing a single loop of small bowel. No evidence of incarceration or obstructio n is seen at the site. The urinary bladder is within normal limits. The other pelvic structures appea r grossly intact. There is no evidence of pelvic lymphadenopathy or ascites. Bones: There are no suspicious osseous abnormalities seen. Impression: 1. No obstructive or inflammatory bowel changes. 2. Right inguinal hernia containing a single loop of small bowel. No evidence of obstruction or incar ceration however. 3. Mild stable fatty infiltration of the liver. 4. Overall, stable examination.
[2017-07-04] MEDS ORDERED: OLAN5TAB PO (00:39)
[2017-07-04] MEDS ORDERED: FOLI1TAB4 PO (00:39)
[2017-07-04] MEDS ORDERED: RISP25INJ IM (00:39)
[2017-07-04] MEDS ORDERED: DEPA250T32 PO (00:39)
[2017-07-04] MEDS ORDERED: ALBU83IN INH (00:40)
[2017-07-04] MEDS ORDERED: OXAZEPAM 10 MG CAP PO PRN (01:00)
[2017-07-04] MEDS ORDERED: OLANZapine 5 MG TAB PO PRN (01:00)
[2017-07-04] MEDS ORDERED: ALBUTEROL SULFATE 2.5 MG/0.5 ML INH NEB SOLN INH PRN (01:00)
[2017-07-04] MEDS ORDERED: DIVALPROEX 250 MG TAB PO PRN (01:00)
[2017-07-04] MEDS ORDERED: ONDANSETRON 4MG/2ML VIAL (J2405) IV PRN (01:15)
[2017-07-04] MEDS ORDERED: MULTIVITAMIN -ADULT INJECTION 10 ML, THIAMINE INJection 100 MG, FOLIC ACID 1 MG in NS 1... IV ONE (02:00)
--- NOTE | 2017-07-04 02:30 | REPUSA ---
CLINICAL HISTORY: Pain. TECHNIQUE: Multiple axial CT images were obtained through the thorax without IV contrast material. COMMENTS: Comparison to prior exam on 10/10/2016. There is bilateral peribronchial interstitial thickening suggestive of bronchitis. Bilateral basilar atelectatic pulmonary changes. There is no evidence of pleural or parenchymal mass. There are no pleural effusions. There is no evid ence of hilar or mediastinal lymphadenopathy. The heart and great vessels are within normal limits. The visualized portions of the liver are of uniform attenuation without mass or defect. There is no i ntra or extrahepatic biliary ductal dilatation. The spleen is unremarkable. The visualized pancreas i s of normal contour and attenuation characteristics. There is no evidence of adrenal mass. The visual ized portions of the kidneys present no abnormalities. The bony structures are free of lytic or blastic lesions. IMPRESSION: Unchanged exam. No evidence of acute thoracic pathology. Thank you for your kind referral of this patient.
[2017-07-04 02:48] LABS: BASO % 0.6 % (0.0-1.0); EOS # 0.1 10^3/uL (0.0-0.50); EOS % 2.5 % (0.0-3.0); IMMATURE GRANULOCYTE % 0.4 % (0-0); LYMPH # 1.8 10^3/uL (1.5-4.5); LYMPH % 37.1 % (24.0-44.0); MEAN CORPUSCULAR HEMOGLOBIN 33.6 pg (27.0-33.0); MEAN CORPUSCULAR HGB CONC 35.3 g/dl (32.0-36.5); MEAN CORPUSCULAR VOLUME 95.2 fl (80.0-96.0); MONO # 0.4 10^3/uL (0.0-0.8); NEUTROPHILS # 2.5 10^3/uL (1.8-7.7); NEUTROPHILS % 51.4 % (36.0-66.0); PLATELET COUNT, AUTOMATED 246 10^3/uL (150-450); RED CELL DISTRIBUTION WIDTH 11.9 % (11.5-14.5); WHITE BLOOD COUNT 4.9 10^3/uL (4.0-10.0)
[2017-07-04 03:19] LABS: FERRITIN 209 NG/ML (26-388); T UPTAKE 38 % (33-40); THYROXINE (T4) 5.6 UG/DL (4.5-12.0)
[2017-07-04] MEDS ORDERED: MAALOX 30 ML SUSP *UDC PO PRN (03:30)
[2017-07-04] MEDS: PERCOCET 5MG/325MG TAB PO PRN ×2 (03:49→09:02)
[2017-07-04] MEDS ORDERED: OXAZEPAM 10 MG CAP PO SCH (06:00)
[2017-07-04] MEDS ORDERED: HEPARIN SOD (PORCINE) 5000 UNITS/ML VIAL SQ SCH (06:00)
[2017-07-04] MEDS ORDERED: NS 1,000 ML IV SCH (06:00)
[2017-07-04 07:30] LABS: MEAN CORPUSCULAR HEMOGLOBIN 33.6 pg (27.0-33.0); MEAN CORPUSCULAR HGB CONC 34.7 g/dl (32.0-36.5); MEAN CORPUSCULAR VOLUME 96.7 fl (80.0-96.0); RED CELL DISTRIBUTION WIDTH 12.1 % (11.5-14.5); WHITE BLOOD COUNT 4.2 10^3/uL (4.0-10.0)
[2017-07-04 08:00] VITALS: BP 110/68
[2017-07-04 08:06] LABS: ALBUMIN 3.1 GM/DL (3.2-5.2); ALBUMIN/GLOBULIN RATIO 1.07 (1.00-1.93); ALKALINE PHOSPHATASE 41 U/L (45-117); ALT/SGPT 27 U/L (12-78); ANION GAP 8 MEQ/L (8-16); AST/SGOT 24 U/L (15-37); BILIRUBIN,TOTAL 0.3 MG/DL (0.2-1.0); BLOOD UREA NITROGEN 6 MG/DL (7-18); CALCIUM LEVEL 8.1 MG/DL (8.5-10.1); CARBON DIOXIDE LEVEL 24 MEQ/L (21-32); CHLORIDE LEVEL 109 MEQ/L (98-107); CREATININE FOR GFR 0.86 MG/DL (0.70-1.30); GLOMERULAR FILTRATION RATE > 60.0 (>56); GLUCOSE, FASTING 77 MG/DL (70-105); POTASSIUM SERUM 4.1 MEQ/L (3.5-5.1); SODIUM LEVEL 141 MEQ/L (136-145)
[2017-07-04] MEDS ORDERED: MULTIVITAMINS/MINERALS THERAP 1 TAB PO SCH (09:00)
[2017-07-04] MEDS ORDERED: PANTOPRAZOLE 40MG INJ (PROTONIX) (C9113) IV SCH (09:00)
[2017-07-04] MEDS ORDERED: THIAMINE 100 MG TAB PO SCH (09:00)
[2017-07-04] MEDS ORDERED: FOLIC ACID 1 MG TAB PO SCH (09:00)
[2017-07-04] MEDS ORDERED: PANTOPRAZOLE 40MG TAB (PROTONIX) PO SCH (09:00)
[2017-07-04 09:02] VITALS: BP 110/68
[2017-07-04] MEDS ORDERED: PRIL20TA2 PO (10:03)
--- NOTE | 2017-07-04 11:29 | HPE ---
DATE OF ADMISSION: 07/04/2017 PRIMARY CARE PROVIDER: Nenita Geiger. The patient has not seen Nenita Geiger for awhile. CHIEF COMPLAINT: Right hand pain and epigastric and chest pain. HISTORY OF PRESENT ILLNESS: This is a 52-year-old male patient with underlying medical history of coronary artery disease with myocardial infarction (OK) in 1988 and 1993, degenerative joint disease, chronic back pain, chronic knee pain, was also significant for major depressive disorder, asbestos exposure with pulmonary nodule, history of rib fractures, history of pancreatitis, heavy alcohol drinker presented [facility] with 3 days of progressive worsening right arm pain as well as subsequently migrated to chest and epigastric area that is stabbing constant 8 out of 10, no trouble breathing, reported generalized weakness, denies any trauma, no chest pain, tightness. No leading factor or exacerbating factor. Patient still smokes. Denies any reported heavy alcohol use. Denies any nausea or vomiting although patient is a very poor historian. In the emergency room patient was with initial hemoglobin of 6.7/19.8, fecal occult was negative in the emergency room. Patient denies any melena or bright red blood per rectum. Was initially consented for transfusion, anemia work-up was initially ordered, but upon repeat of CBC patient's hemoglobin is at base of 13.9/39.4 subsequently nursing supervision, Aaron, as well as ED supervisor elementary education, Ana Maria, has been contacted to do further investigation as to the cause of this lab error. Patient's anemia work-up has been cancelled. Subsequently, patient is admitted for further work-up of patient's chest pain. ALLERGIES: MORPHINE. PAST MEDICAL HISTORY: Coronary artery disease with myocardial infarction (OK) in 1988 and 1993, back pain, degenerative disc disease, chronic knee pain, asbestos exposure, rib fracture, pancreatitis, gastroesophageal reflux disease (GERD), history of major depression. PAST SURGICAL HISTORY: Incisional hernia repair times two, cholecystectomy, esophagogastroduodenoscopy (EGD). SOCIAL HISTORY: Lives in [place]. Lives alone. Smokes about one to two packs per day for the past 48 years. Drinks about 3-30 cans of beer daily. No illicit drug use. Refused nicotine patch. FAMILY HISTORY: Unknown. REVIEW OF SYSTEMS: Reported epigastric pain and right arm pain. HOME MEDICATIONS: - albuterol inhaler every 4 hours as needed - Depakote 250 mg by mouth three times a day as needed - folic acid 1 mg by mouth daily - olanzapine 5 mg by mouth every 4 hours as needed - risperidone 25 mg IM every 2 weeks Temperature 97.9, pulse 72, respiration 18, blood pressure 91/58, pulse ox 96% on room air. GENERAL: Patient appears disheveled. Alert and oriented times three, in no acute distress. HEENT: Normocephalic, atraumatic. PULMONARY: Distant breath sounds, bilateral, clear. CARDIAC: Regular rate and rhythm. Normal S1, S2. ABDOMEN: Soft, minimal epigastric tenderness. No rebound. No guarding. Gaines's sign negative. EXTREMITIES: No clubbing, cyanosis, or edema. EKG - sinus rhythm at 67. CT of the abdomen negative other than right inguinal hernia. CT of the chest was within normal limits. LABORATORY: WBC 4.9, hemoglobin and hematocrit 13.9/39.4, platelets 246. Chemistry - sodium 128, potassium 3.6, chloride 104, bicarbonate 23, BUN 7, creatinine 0.87, lipase negative, cardiac enzymes times one. ASSESSMENT AND PLAN: This is a 52-year-old male patient with underlying medical history of coronary artery disease, chronic back pain, degenerative disc disease, chronic knee pain, history of asbestos exposure, history of rib fracture, history of pancreatitis, gastroesophageal reflux disease (GERD) admitted with chest pain. PROBLEM: 1. Chest pain. Telemetry monitoring. EKG is negative. Serial cardiac enzymes. Chest of the chest appreciated. On physical exam the pain is most likely on the epigastric area. Lipase has been negative. Will follow echocardiogram. 2. Chronic pain. Continue current medication. 3. Major depression. Continue current medication. 4. Alcohol abuse. Banana bag, thiamine, folate, multivitamins, Serax standing as needed monitor for withdrawal. 5. Gastroesophageal reflux disease (GERD). Continue proton pump inhibitor (PPI). 6. Smoking. Counseling provided. Refused nicotine patch. 7. Deep venous thrombosis (DVT) prophylaxis. Heparin subcutaneous. DISPOSITION: Pending work-up for chest pain.
--- NOTE | 2017-07-04 13:43 | IPN ---
DATE: 07/04/2017 Mr. Almodovar is feeling much better this morning. He has no complaints of pain. He has no chest pain. He is not short of breath. He is hungry. He has no abdominal pain. He has no intention to stop drinking alcohol. PHYSICAL EXAMINATION: VITAL SIGNS: Temperature 98, pulse 56, respiratory rate 18, blood pressure 110/68, 98% on room air. Awake, appropriately interactive. Pleasantly conversant. LUNGS: Breathing is symmetrical. I:E ratio is 1:3. No accessory muscle use. Speaking in complete sentences. HEART: Regular rate and rhythm. Normal S1, S2. It is borderline bradycardic on my examination with a rate around 60. Radial pulses 2+. Capillary refill is less than 2 seconds. ABDOMEN: Soft to deep palpation. Nontender. Active bowel sounds. EXTREMITIES: No significant lower extremity edema. LABORATORY DATA: White cell count is 4.2, hemoglobin 13.1, platelets of 249. BUN 6, creatinine 0.86, troponin and CK have been negative times three. Thyroid function tests are within normal limits. ASSESSMENT: This is a 52-year-old with gastritis. PLAN: 1. The patient has chest pain, which has resolved. It has been somewhat atypical. CK and troponin have been negative. May benefit from outpatient cardiovascular workup. We will establish the patient with a primary care provider with the residency clinic and defer to their management. Lipase was negative. The patient is tolerating a regular diet. 2. The patient has history of major depression. 3. The patient has a history of alcohol abuse. We discussed the use of alcohol and is likely the cause of his epigastric pain. The patient says he has no interest in seeking assistance with cessation. 4. The patient uses tobacco and is not interested in cessation. 5. The patient has had appropriate deep vein thrombosis (DVT) prophylaxis. 6. Plan is for discharge. Continue home medications with the addition of Prilosec 20 mg by mouth daily.
--- NOTE | 2017-07-04 14:58 | REP ---
Clinical: Chest pain. Comparison: 05/05/2017. Findings: This time and cardiac silhouette are within normal limits. Lung mason demonstrate COPD and chronic interstitial changes. No focal consolidation, effusion, or pneumothorax. Skeletal structures intact. Impression: Chronic changes. No acute cardiopulmonary process. Signed by Isaias Moser MD 07/04/2017 02:49 P
--- NOTE | 2017-07-05 07:35 | ECGEPIP ---
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
[2017-07-05] MEDS ORDERED: SERO50TA PO (23:48)
[2017-07-05] MEDS ORDERED: OMEP20CA3 PO (23:48)
[2017-07-11] MEDS ORDERED: risperiDONE LONG-ACTING 25 MG/2 ML INJ (J2794) IM SCH (09:00)
== END 2017-07-04 14:10 | disposition home or self-care (01) ==
LOC: EDBD 20:33 → M ED 20:33 → M ED INP 07-04 01:03 → INTOOBSV 07-04 01:03
PROVIDERS: ADMIT Hospitalist; ATTEND Internal Medicine
DX: R07.9 Chest pain, unspecified (principal); F32.89 Other specified depressive episodes; F10.10 Alcohol abuse, uncomplicated; F17.210 Nicotine dependence, cigarettes, uncomplicated; I25.10 Atherosclerotic heart disease of native coronary artery without angina pectoris; I25.2 Old myocardial infarction; M54.5 Low back pain; Z77.090 Contact with and (suspected) exposure to asbestos; R91.1 Solitary pulmonary nodule; K21.9 Gastro-esophageal reflux disease without esophagitis; Z79.899 Other long term (current) drug therapy; Z79.51 Long term (current) use of inhaled steroids
CPT/HCPCS: 36415; 71010; 71250; 74177; 80048; 80053; 80076; 80320; 82550; 82553; 82728; 83690; 83735; 84436; 84443; 84479; 85025; 85027; 85610; 93000; 93041; 96361; 96372; 96374; 96375; 99285; C9113; J2405; J3010; J3411; Q9967

== ENCOUNTER 2017-07-05 22:11 | Emergency (ER) | payer OTHER ==
[~2017-07-05 22:11] MED LIST changes: +PRIL20TA2 PO
[2017-07-05 23:25] LABS: MEAN CORPUSCULAR HEMOGLOBIN 33.2 pg (27.0-33.0); MEAN CORPUSCULAR HGB CONC 34.8 g/dl (32.0-36.5); MEAN CORPUSCULAR VOLUME 95.4 fl (80.0-96.0); RED CELL DISTRIBUTION WIDTH 11.7 % (11.5-14.5); WHITE BLOOD COUNT 5.5 10^3/uL (4.0-10.0)
[2017-07-05] MEDS ORDERED: OMEP20CA3 PO (23:48)
[2017-07-05] MEDS ORDERED: SERO50TA PO (23:48)
[2017-07-05 23:57] LABS: METHADONE URINE NEGATIVE (NEGATIVE)
[2017-07-05 23:58] LABS: ALBUMIN 3.9 GM/DL (3.2-5.2); ALBUMIN/GLOBULIN RATIO 1.15 (1.00-1.93); ALKALINE PHOSPHATASE 57 U/L (45-117); ALT/SGPT 30 U/L (12-78); ANION GAP 8 MEQ/L (8-16); AST/SGOT 26 U/L (15-37); BILIRUBIN,DIRECT < 0.1 MG/DL (0.0-0.2); BILIRUBIN,TOTAL 0.2 MG/DL (0.2-1.0); BLOOD UREA NITROGEN 5 MG/DL (7-18); CALCIUM LEVEL 8.4 MG/DL (8.5-10.1); CARBON DIOXIDE LEVEL 27 MEQ/L (21-32); CHLORIDE LEVEL 109 MEQ/L (98-107); CREATININE FOR GFR 0.89 MG/DL (0.70-1.30); GLOMERULAR FILTRATION RATE > 60.0 (>56); GLUCOSE, FASTING 89 MG/DL (70-105); POTASSIUM SERUM 3.6 MEQ/L (3.5-5.1); SODIUM LEVEL 144 MEQ/L (136-145); TOTAL PROTEIN 7.3 GM/DL (6.4-8.2)
[2017-07-06 10:46] VITALS: BP 127/77
== END 2017-07-06 10:47 | disposition home or self-care (01) ==
LOC: M ED 22:11
DX: R45.850 Homicidal ideations (principal); R45.851 Suicidal ideations; K21.9 Gastro-esophageal reflux disease without esophagitis; J44.9 Chronic obstructive pulmonary disease, unspecified; F99 Mental disorder, not otherwise specified; F17.200 Nicotine dependence, unspecified, uncomplicated; Z79.899 Other long term (current) drug therapy; Z88.5 Allergy status to narcotic agent

== ENCOUNTER 2017-07-12 20:40 | Emergency (ER) | payer OTHER ==
[~2017-07-12] VITALS: Ht 175.3 cm; Wt 66.3 kg
[~2017-07-12 20:40] MED LIST changes: +OMEP20CA3 PO; +SERO50TA PO
[2017-07-12 21:23] VITALS: BP 106/61
[2017-07-12] MEDS ORDERED: NS 500 ML IV ONE (21:45)
[2017-07-12] MEDS ORDERED: KETOROLAC 30 MG/ML VIAL (J1885) IV ONE (21:45)
--- NOTE | 2017-07-12 23:50 | REPUSA ---
HISTORY: EVAL L RIB TRAUMA. TECHNIQUE: Axial CT imaging of the chest without contrast. DLP= 269 mGy-cm. FINDINGS: Lung windows demonstrate clear lungs with no pulmonary mass lesions, infiltrates, significa nt interstitial lung disease, bronchiectasis, or cystic lung lesions. No pleural effusions are seen. No pneumothorax is seen. Mediastinal windows demonstrate no mediastinal or hilar mass lesions on the noncontrast examination. No chest wall mass lesions are seen. Bone windows demonstrates multiple disc compressions in the low er thoracic spine extending from T8, T9, T10, T11, and L1, without evidence of retropulsion or canal stenosis seen. Upper abdomen is normal, and adrenal glands are normal. IMPRESSION: 1. No rib fracture is seen. 2. No acute pulmonary complications of pneumothorax, hemothorax, or pulmonary contusion is seen. 3. Multiple chronic appearing degenerative changes and disc compressions identified in multiple thor acic and L1 vertebral bodies. Clinical correlation and followup imaging may be warranted as clinically indicated.
--- NOTE | 2017-07-14 07:53 | ED PDOC ---
Post-Departure Follow-Up radiology report faxed to [facility] Ana Rosa Ghotra MD Jul 14, 2017 07:53
== END 2017-07-13 01:43 | disposition home or self-care (01) ==
LOC: M ED 20:40
DX: R07.89 Other chest pain (principal); F10.229 Alcohol dependence with intoxication, unspecified; M51.9 Unspecified thoracic, thoracolumbar and lumbosacral intervertebral disc disorder; I25.10 Atherosclerotic heart disease of native coronary artery without angina pectoris; J44.9 Chronic obstructive pulmonary disease, unspecified; K21.9 Gastro-esophageal reflux disease without esophagitis; F32.9 Major depressive disorder, single episode, unspecified; K85.90 Acute pancreatitis without necrosis or infection, unspecified; Z79.899 Other long term (current) drug therapy; Z88.5 Allergy status to narcotic agent
CPT/HCPCS: 71250; 80320; 82550; 82553; 96374; 99284; J1885

== ENCOUNTER 2017-11-18 19:03 | Emergency (ER) | payer OTHER ==
[2017-11-18 21:29] LABS: BASO % 0.1 % (0.0-1.0); EOS # 0.1 10^3/uL (0.0-0.50); HEMATOCRIT 41.6 % (42.0-52.0); HEMOGLOBIN 14.7 g/dl (14.0-18.0); IMMATURE GRANULOCYTE % 0.4 % (0-3.0); LYMPH # 1.5 10^3/uL (1.5-4.5); LYMPH % 16.4 % (24.0-44.0); MEAN CORPUSCULAR HEMOGLOBIN 32.2 pg (27.0-33.0); MEAN CORPUSCULAR HGB CONC 35.3 g/dl (32.0-36.5); MEAN CORPUSCULAR VOLUME 91.2 fl (80.0-96.0); MONO # 0.9 10^3/uL (0.0-0.8); MONO % 9.7 % (0.0-5.0); NEUTROPHILS # 6.8 10^3/uL (1.8-7.7); NEUTROPHILS % 72.4 % (36.0-66.0); PLATELET COUNT, AUTOMATED 215 10^3/uL (150-450); RED BLOOD COUNT 4.56 10^6/uL (4.30-6.10); RED CELL DISTRIBUTION WIDTH 11.5 % (11.5-14.5); WHITE BLOOD COUNT 9.4 10^3/uL (4.0-10.0)
[2017-11-18] MEDS: NS 1,000 ML IV (21:36)
[2017-11-18 21:41] LABS: INR 1.02; PROTHROMBIN TIME 13.5 SECONDS (12.4-14.5)
[2017-11-18 21:42] LABS: PARTIAL THROMBOPLASTIN TIME 34.2 SECONDS (26.8-37.9)
[2017-11-18 21:51] LABS: LACTIC ACID SEPSIS PROTOCOL 0.9 MMOL/L (0.4-2.0)
[2017-11-18 21:53] LABS: ALBUMIN 3.7 GM/DL (3.2-5.2); ALBUMIN/GLOBULIN RATIO 1.06 (1.00-1.93); ALKALINE PHOSPHATASE 53 U/L (45-117); ALT/SGPT 31 U/L (12-78); AMYLASE 38 U/L (25-115); ANION GAP 7 MEQ/L (8-16); AST/SGOT 27 U/L (7-37); BILIRUBIN,DIRECT 0.2 MG/DL (0.0-0.2); BILIRUBIN,TOTAL 0.6 MG/DL (0.2-1.0); BLOOD UREA NITROGEN 11 MG/DL (7-18); CALCIUM LEVEL 8.5 MG/DL (8.5-10.1); CARBON DIOXIDE LEVEL 29 MEQ/L (21-32); CHLORIDE LEVEL 97 MEQ/L (98-107); CPK CREATINE PHOSPHOKINASE 100 U/L (39-308); CREATININE FOR GFR 1.17 MG/DL (0.70-1.30); GLOMERULAR FILTRATION RATE > 60.0 (>56); GLUCOSE, FASTING 90 MG/DL (70-100); LIPASE 185 U/L (73-393); POTASSIUM SERUM 4.1 MEQ/L (3.5-5.1); SODIUM LEVEL 133 MEQ/L (136-145); TOTAL PROTEIN 7.2 GM/DL (6.4-8.2); TROPONIN I < 0.02 NG/ML (< 0.10)
[2017-11-18 22:17] LABS: INFLUENZA A AMPLIFICATION NEGATIVE (NEGATIVE); INFLUENZA B AMPLIFICATION NEGATIVE (NEGATIVE)
== END 2017-11-19 00:13 | disposition home or self-care (01) ==
LOC: M ED 11-19 00:13
DX: J20.8 Acute bronchitis due to other specified organisms (principal); J44.9 Chronic obstructive pulmonary disease, unspecified; I25.10 Atherosclerotic heart disease of native coronary artery without angina pectoris; I25.2 Old myocardial infarction; Z87.19 Personal history of other diseases of the digestive system; Z88.5 Allergy status to narcotic agent; F17.210 Nicotine dependence, cigarettes, uncomplicated
CPT/HCPCS: 71046

== ENCOUNTER → 2017-11-25 | Outpatient (REF) | payer OTHER ==
[2017-11-25 14:39] LABS: BASO # 0.1 10^3/uL (0.0-0.2); BASO % 0.6 % (0.0-1.0); EOS # 0.1 10^3/uL (0.0-0.50); EOS % 1.3 % (0.0-3.0); HEMATOCRIT 43.1 % (42.0-52.0); HEMOGLOBIN 14.7 g/dl (14.0-18.0); IMMATURE GRANULOCYTE % 0.8 % (0-3.0); LYMPH # 1.5 10^3/uL (1.5-4.5); LYMPH % 18.4 % (24.0-44.0); MEAN CORPUSCULAR HEMOGLOBIN 32.1 pg (27.0-33.0); MEAN CORPUSCULAR HGB CONC 34.1 g/dl (32.0-36.5); MEAN CORPUSCULAR VOLUME 94.1 fl (80.0-96.0); MONO # 0.6 10^3/uL (0.0-0.8); NEUTROPHILS # 5.7 10^3/uL (1.8-7.7); NEUTROPHILS % 70.9 % (36.0-66.0); PLATELET COUNT, AUTOMATED 462 10^3/uL (150-450); RED BLOOD COUNT 4.58 10^6/uL (4.30-6.10); RED CELL DISTRIBUTION WIDTH 11.8 % (11.5-14.5)
[2017-11-25 15:07] LABS: ALBUMIN 3.6 GM/DL (3.2-5.2); ALKALINE PHOSPHATASE 64 U/L (45-117); ALT/SGPT 23 U/L (12-78); ANION GAP 5 MEQ/L (8-16); AST/SGOT 18 U/L (7-37); BILIRUBIN,TOTAL 0.3 MG/DL (0.2-1.0); BLOOD UREA NITROGEN 7 MG/DL (7-18); CALCIUM LEVEL 8.8 MG/DL (8.5-10.1); CARBON DIOXIDE LEVEL 31 MEQ/L (21-32); CHLORIDE LEVEL 101 MEQ/L (98-107); CHOLESTEROL LEVEL 168 MG/DL (<200); CHOLESTEROL RISK RATIO 2.584 (<5); CREATININE FOR GFR 1.04 MG/DL (0.70-1.30); GLOMERULAR FILTRATION RATE > 60.0 (>56); GLUCOSE, FASTING 95 MG/DL (70-100); HDL CHOLESTEROL 65 MG/DL (>40); LDL CHOLESTEROL 92.2 MG/DL (<100); NON-HDL-C 103 MG/DL; POTASSIUM SERUM 4.8 MEQ/L (3.5-5.1); SODIUM LEVEL 137 MEQ/L (136-145); TOTAL PROTEIN 7.6 GM/DL (6.4-8.2); TRIGLYCERIDES LEVEL 54 MG/DL (<150)
[2017-11-25 15:14] LABS: TOTAL 25(OH) VITAMIN D 19.8 NG/ML (30.0-100.0)
[2017-11-25 15:19] LABS: CHLAMYDIA DNA AMPLIFICATION NEGATIVE (NEGATIVE); GC DNA AMPLIFICATION NEGATIVE (NEGATIVE)
[2017-11-25 15:36] LABS: ESTIMATED AVERAGE GLUCOSE 103 MG/DL (60-110); HEMOGLOBIN A1c 5.2 %
[2017-11-25 15:54] LABS: HIV 1&2 SCREEN CENTAUR NEGATIVE (NEGATIVE)
== END ==
LOC: M LAB REF 12:42
DX: Z13.9 Encounter for screening, unspecified (principal)

== ENCOUNTER 2018-01-09 20:42 | Inpatient (IN) | payer MEDICAID, OTHER ==
[2018-01-09 21:36] LABS: HEMOGLOBIN 13.9 g/dl (13.5-17.5); MEAN CORPUSCULAR HEMOGLOBIN 31.7 pg (27.0-33.0); MEAN CORPUSCULAR HGB CONC 34.8 g/dl (32.0-36.5); MEAN CORPUSCULAR VOLUME 91.3 fl (80.0-96.0); PLATELET COUNT, AUTOMATED 287 10^3/uL (150-450); RED BLOOD COUNT 4.38 10^6/uL (4.30-6.10); RED CELL DISTRIBUTION WIDTH 12.8 % (11.5-14.5); WHITE BLOOD COUNT 6.7 10^3/uL (4.0-10.0)
[2018-01-09 22:29] LABS: ACETAMINOPHEN LEVEL < 2.0 UG/ML (10.0-30.0); ALBUMIN 3.9 GM/DL (3.2-5.2); ALBUMIN/GLOBULIN RATIO 1.08 (1.00-1.93); ALKALINE PHOSPHATASE 66 U/L (45-117); ALT/SGPT 23 U/L (12-78); ANION GAP 9 MEQ/L (8-16); AST/SGOT 24 U/L (7-37); BILIRUBIN,DIRECT < 0.1 MG/DL (0.0-0.2); BILIRUBIN,TOTAL 0.2 MG/DL (0.2-1.0); BLOOD UREA NITROGEN 6 MG/DL (7-18); CALCIUM LEVEL 8.2 MG/DL (8.5-10.1); CARBON DIOXIDE LEVEL 24 MEQ/L (21-32); CHLORIDE LEVEL 111 MEQ/L (98-107); CREATININE FOR GFR 0.95 MG/DL (0.70-1.30); ETHYL ALCOHOL (ETHANOL) 0.305 % (0.000-0.010); GLOMERULAR FILTRATION RATE > 60.0 (>56); GLUCOSE, FASTING 85 MG/DL (70-100); POTASSIUM SERUM 3.6 MEQ/L (3.5-5.1); SALICYLATE LEVEL 2.7 MG/DL (5.0-30.0); SODIUM LEVEL 144 MEQ/L (136-145); TOTAL PROTEIN 7.5 GM/DL (6.4-8.2)
[2018-01-09 22:55] LABS: AMPHETAMINES LEVEL URINE NEGATIVE (NEGATIVE); BARBITURATES URINE NEGATIVE (NEGATIVE); BENZODIAZEPINES URINE NEGATIVE (NEGATIVE); CANNABINOIDS URINE NEGATIVE (NEGATIVE); COCAINE METABOLITE URINE NEGATIVE (NEGATIVE); METHADONE URINE NEGATIVE (NEGATIVE); OPIATES URINE NEGATIVE (NEGATIVE); PHENCYCLIDINE URINE NEGATIVE (NEGATIVE)
[2018-01-10] MEDS ORDERED: MOM 30ML SUSPENSION UDC PO (12:00)
[2018-01-10] MEDS ORDERED: LORazepam 2 MG TAB PO (12:00)
[2018-01-10] MEDS: NICOTINE 21MG/24HR 1 EA TRANSDERMAL TD (12:39)
[2018-01-10] MEDS: THIAMINE 100 MG TAB PO ×2 (12:39→21:00)
[2018-01-10] MEDS: MULTIVITAMINS/MINERALS THERAP 1 TAB PO (12:39)
[2018-01-10] MEDS: FOLIC ACID 1 MG TAB PO (12:39)
[2018-01-11] MEDS: ACETAMINOPHEN TAB 650MG DOSE (2X325MG) PO (00:51)
[2018-01-11] MEDS: MULTIVITAMINS/MINERALS THERAP 1 TAB PO (08:44)
[2018-01-11] MEDS: NICOTINE 21MG/24HR 1 EA TRANSDERMAL TD (08:44)
[2018-01-11] MEDS: FOLIC ACID 1 MG TAB PO (08:44)
[2018-01-11] MEDS: THIAMINE 100 MG TAB PO ×2 (08:44→20:31)
[2018-01-11] MEDS: CitaloPRAM (CeleXA) 10 MG TABLET PO (12:29)
[2018-01-11] MEDS: hydrOXYzine 50 MG TAB PO (12:29)
[2018-01-11] MEDS: OLANZapine 5 MG TAB PO (20:31)
[2018-01-11] MEDS: traZODone 50 MG TAB PO (20:31)
[2018-01-12] MEDS: FOLIC ACID 1 MG TAB PO (08:47)
[2018-01-12] MEDS: MULTIVITAMINS/MINERALS THERAP 1 TAB PO (08:47)
[2018-01-12] MEDS: THIAMINE 100 MG TAB PO ×2 (08:48→20:46)
[2018-01-12] MEDS: NICOTINE 21MG/24HR 1 EA TRANSDERMAL TD (08:48)
[2018-01-12] MEDS: CitaloPRAM (CeleXA) 10 MG TABLET PO (08:48)
[2018-01-12] MEDS: hydrOXYzine 50 MG TAB PO ×2 (14:06→20:46)
[2018-01-12] MEDS: OLANZapine 5 MG TAB PO (20:46)
[2018-01-12] MEDS: traZODone 50 MG TAB PO (20:46)
[2018-01-12] MEDS: LOTRISONE CREAM 15 GM (BETAMETH/CLOTRIMAZOLE) TOP (21:12)
[2018-01-13] MEDS: hydrOXYzine 50 MG TAB PO ×2 (08:07→20:16)
[2018-01-13] MEDS: LOTRISONE CREAM 15 GM (BETAMETH/CLOTRIMAZOLE) TOP ×2 (08:07→20:17)
[2018-01-13] MEDS: CitaloPRAM (CeleXA) 10 MG TABLET PO (08:07)
[2018-01-13] MEDS: NICOTINE 21MG/24HR 1 EA TRANSDERMAL TD (08:08)
[2018-01-13] MEDS: FOLIC ACID 1 MG TAB PO (08:08)
[2018-01-13] MEDS: MULTIVITAMINS/MINERALS THERAP 1 TAB PO (08:08)
[2018-01-13] MEDS: OLANZapine 2.5MG TABLET PO (10:58)
[2018-01-13] MEDS: traZODone 50 MG TAB PO (20:16)
[2018-01-13] MEDS: OLANZapine 5 MG TAB PO (20:16)
[2018-01-14] MEDS: LOTRISONE CREAM 15 GM (BETAMETH/CLOTRIMAZOLE) TOP ×2 (08:18→21:11)
[2018-01-14] MEDS: NICOTINE 21MG/24HR 1 EA TRANSDERMAL TD (08:18)
[2018-01-14] MEDS: OLANZapine 2.5MG TABLET PO (08:19)
[2018-01-14] MEDS: hydrOXYzine 50 MG TAB PO ×2 (08:19→20:31)
[2018-01-14] MEDS: MULTIVITAMINS/MINERALS THERAP 1 TAB PO (08:19)
[2018-01-14] MEDS: FOLIC ACID 1 MG TAB PO (08:19)
[2018-01-14] MEDS: traZODone 50 MG TAB PO (20:31)
[2018-01-14] MEDS: OLANZapine 5 MG TAB PO (20:31)
[2018-01-14] MEDS: MAALOX 30 ML SUSP *UDC PO (21:13)
[2018-01-15] MEDS: hydrOXYzine 50 MG TAB PO (08:27)
[2018-01-15] MEDS: OLANZapine 2.5MG TABLET PO (08:27)
[2018-01-15] MEDS: LOTRISONE CREAM 15 GM (BETAMETH/CLOTRIMAZOLE) TOP ×2 (09:00→21:55)
[2018-01-15] MEDS: MULTIVITAMINS/MINERALS THERAP 1 TAB PO (09:00)
[2018-01-15] MEDS: FOLIC ACID 1 MG TAB PO (09:00)
[2018-01-15] MEDS: NICOTINE 21MG/24HR 1 EA TRANSDERMAL TD (09:00)
[2018-01-15] MEDS: MAALOX 30 ML SUSP *UDC PO (12:08)
[2018-01-15] MEDS: raNITIdine SYRUP 150 MG/10 ML UDC PO (16:20)
[2018-01-15] MEDS: GASTROGRAFIN SOLUTION 30ML (Q9963) PO (20:00)
[2018-01-15 20:07] LABS: HEMATOCRIT 44.3 % (42.0-52.0); HEMOGLOBIN 15.1 g/dl (13.5-17.5); MEAN CORPUSCULAR HEMOGLOBIN 31.6 pg (27.0-33.0); MEAN CORPUSCULAR HGB CONC 34.1 g/dl (32.0-36.5); MEAN CORPUSCULAR VOLUME 92.7 fl (80.0-96.0); PLATELET COUNT, AUTOMATED 294 10^3/uL (150-450); RED BLOOD COUNT 4.78 10^6/uL (4.30-6.10); RED CELL DISTRIBUTION WIDTH 12.9 % (11.5-14.5); WHITE BLOOD COUNT 8.9 10^3/uL (4.0-10.0)
[2018-01-15 20:35] LABS: ALBUMIN 4.2 GM/DL (3.2-5.2); ALBUMIN/GLOBULIN RATIO 0.98 (1.00-1.93); ALKALINE PHOSPHATASE 64 U/L (45-117); ALT/SGPT 20 U/L (12-78); ANION GAP 9 MEQ/L (8-16); AST/SGOT 19 U/L (7-37); BILIRUBIN,TOTAL 0.6 MG/DL (0.2-1.0); BLOOD UREA NITROGEN 20 MG/DL (7-18); CALCIUM LEVEL 9.3 MG/DL (8.5-10.1); CARBON DIOXIDE LEVEL 24 MEQ/L (21-32); CHLORIDE LEVEL 108 MEQ/L (98-107); CREATININE FOR GFR 1.12 MG/DL (0.70-1.30); GLOMERULAR FILTRATION RATE > 60.0 (>56); GLUCOSE, FASTING 95 MG/DL (70-100); MAGNESIUM LEVEL 2.5 MG/DL (1.8-2.4); POTASSIUM SERUM 4.4 MEQ/L (3.5-5.1); SODIUM LEVEL 141 MEQ/L (136-145); TOTAL PROTEIN 8.5 GM/DL (6.4-8.2)
[2018-01-15 21:43] LABS: PROTHROMBIN TIME > 150.0 SECONDS (12.4-14.5)
[2018-01-15] MEDS: ONDANSETRON 4 MG ORAL DISINTEGRATING TAB (Q0162 PER 1MG) PO (21:54)
[2018-01-15] MEDS: OLANZapine 5 MG TAB PO (21:54)
[2018-01-15] MEDS: METOCLOPRAMIDE 5 MG TAB PO (21:54)
[2018-01-15] MEDS: traZODone 50 MG TAB PO (22:02)
[2018-01-15 22:55] LABS: INR 1.04; PROTHROMBIN TIME 13.7 SECONDS (12.4-14.5)
[2018-01-16] MEDS: METOCLOPRAMIDE 5 MG TAB PO (06:49)
[2018-01-16 07:30] LABS: HEMATOCRIT 42.9 % (42.0-52.0); HEMOGLOBIN 14.8 g/dl (13.5-17.5); MEAN CORPUSCULAR HGB CONC 34.5 g/dl (32.0-36.5); MEAN CORPUSCULAR VOLUME 92.7 fl (80.0-96.0); PLATELET COUNT, AUTOMATED 295 10^3/uL (150-450); RED BLOOD COUNT 4.63 10^6/uL (4.30-6.10); RED CELL DISTRIBUTION WIDTH 12.9 % (11.5-14.5); WHITE BLOOD COUNT 7.1 10^3/uL (4.0-10.0)
[2018-01-16 07:57] LABS: ALBUMIN 3.8 GM/DL (3.2-5.2); ALBUMIN/GLOBULIN RATIO 0.95 (1.00-1.93); ALKALINE PHOSPHATASE 57 U/L (45-117); ALT/SGPT 19 U/L (12-78); ANION GAP 7 MEQ/L (8-16); AST/SGOT 18 U/L (7-37); BILIRUBIN,TOTAL 0.6 MG/DL (0.2-1.0); BLOOD UREA NITROGEN 20 MG/DL (7-18); CALCIUM LEVEL 8.9 MG/DL (8.5-10.1); CARBON DIOXIDE LEVEL 28 MEQ/L (21-32); CHLORIDE LEVEL 105 MEQ/L (98-107); CREATININE FOR GFR 1.09 MG/DL (0.70-1.30); GLOMERULAR FILTRATION RATE > 60.0 (>56); GLUCOSE, FASTING 84 MG/DL (70-100); MAGNESIUM LEVEL 2.5 MG/DL (1.8-2.4); POTASSIUM SERUM 4.4 MEQ/L (3.5-5.1); SODIUM LEVEL 140 MEQ/L (136-145); TOTAL PROTEIN 7.8 GM/DL (6.4-8.2)
[2018-01-16] MEDS: OLANZapine 2.5MG TABLET PO (08:00)
[2018-01-16] MEDS: LOTRISONE CREAM 15 GM (BETAMETH/CLOTRIMAZOLE) TOP (08:00)
[2018-01-16] MEDS: NICOTINE 21MG/24HR 1 EA TRANSDERMAL TD (08:00)
[2018-01-16] MEDS: FOLIC ACID 1 MG TAB PO (08:00)
[2018-01-16] MEDS: raNITIdine SYRUP 150 MG/10 ML UDC PO (08:00)
[2018-01-16] MEDS: hydrOXYzine 50 MG TAB PO (08:00)
[2018-01-16] MEDS: MULTIVITAMINS/MINERALS THERAP 1 TAB PO (08:00)
== END 2018-01-16 12:20 | disposition home or self-care (01) | DRG 881 ==
LOC: M ED 20:42 → M PSY 01-14 13:23 → M ED INP 01-10 11:47 → M PSY 01-10 13:17
DX: F43.21 Adjustment disorder with depressed mood (principal); R45.851 Suicidal ideations; F63.9 Impulse disorder, unspecified; I25.10 Atherosclerotic heart disease of native coronary artery without angina pectoris; F60.2 Antisocial personality disorder; R91.1 Solitary pulmonary nodule; B35.3 Tinea pedis; F17.210 Nicotine dependence, cigarettes, uncomplicated; K21.9 Gastro-esophageal reflux disease without esophagitis; F10.20 Alcohol dependence, uncomplicated; Z88.5 Allergy status to narcotic agent; I25.2 Old myocardial infarction; Z77.090 Contact with and (suspected) exposure to asbestos; Z90.49 Acquired absence of other specified parts of digestive tract; Z79.899 Other long term (current) drug therapy

== ENCOUNTER 2018-02-01 19:22 | Emergency (ER) | payer OTHER, MEDICAID ==
[2018-02-01 20:11] LABS: BASO % 0.4 % (0.0-1.0); EOS # 0.1 10^3/uL (0.0-0.50); EOS % 0.7 % (0.0-3.0); HEMATOCRIT 41.3 % (42.0-52.0); HEMOGLOBIN 14.5 g/dl (13.5-17.5); IMMATURE GRANULOCYTE % 0.5 % (0-3.0); LYMPH % 24.5 % (24.0-44.0); MEAN CORPUSCULAR HEMOGLOBIN 32.1 pg (27.0-33.0); MEAN CORPUSCULAR HGB CONC 35.1 g/dl (32.0-36.5); MEAN CORPUSCULAR VOLUME 91.4 fl (80.0-96.0); MONO # 0.6 10^3/uL (0.0-0.8); MONO % 7.2 % (0.0-5.0); NEUTROPHILS # 5.6 10^3/uL (1.8-7.7); NEUTROPHILS % 66.7 % (36.0-66.0); PLATELET COUNT, AUTOMATED 332 10^3/uL (150-450); RED BLOOD COUNT 4.52 10^6/uL (4.30-6.10); RED CELL DISTRIBUTION WIDTH 13.5 % (11.5-14.5); WHITE BLOOD COUNT 8.3 10^3/uL (4.0-10.0)
[2018-02-01 20:26] LABS: ALBUMIN 3.9 GM/DL (3.2-5.2); ALKALINE PHOSPHATASE 62 U/L (45-117); ALT/SGPT 19 U/L (12-78); AMYLASE 57 U/L (25-115); ANION GAP 9 MEQ/L (8-16); AST/SGOT 17 U/L (7-37); BILIRUBIN,DIRECT < 0.1 MG/DL (0.0-0.2); BILIRUBIN,TOTAL 0.3 MG/DL (0.2-1.0); BLOOD UREA NITROGEN 7 MG/DL (7-18); CALCIUM LEVEL 8.4 MG/DL (8.5-10.1); CARBON DIOXIDE LEVEL 25 MEQ/L (21-32); CHLORIDE LEVEL 107 MEQ/L (98-107); CREATININE FOR GFR 0.94 MG/DL (0.70-1.30); GLOMERULAR FILTRATION RATE > 60.0 (>56); GLUCOSE, FASTING 90 MG/DL (70-100); LIPASE 158 U/L (73-393); POTASSIUM SERUM 3.9 MEQ/L (3.5-5.1); SODIUM LEVEL 141 MEQ/L (136-145); TOTAL PROTEIN 7.8 GM/DL (6.4-8.2)
[2018-02-01] MEDS: ONDANSETRON 4MG/2ML VIAL (J2405) IV (20:26)
[2018-02-01] MEDS: NS 1,000 ML IV (20:31)
[2018-02-01] MEDS: PANTOPRAZOLE 40MG INJ (PROTONIX) (C9113) IV (20:31)
[2018-02-01] MEDS: KETOROLAC 30 MG/ML VIAL (J1885) IV (20:31)
[2018-02-01 20:33] LABS: INR 0.96; PROTHROMBIN TIME 12.9 SECONDS (12.4-14.5)
[2018-02-01] MEDS ORDERED: ISOVUE-370 76% 100ML VIAL (Q9967) As Ordered (20:41)
[2018-02-01] MEDS: GI COCKTAIL 50ML BTL(HYOSCYAMINE/MAALOX/LIDOCAINE VISCOUS)(1:3:1) PO (21:38)
== END 2018-02-01 22:19 | disposition home or self-care (01) ==
LOC: M ED 22:19
DX: K29.20 Alcoholic gastritis without bleeding (principal); I51.9 Heart disease, unspecified; F10.188 Alcohol abuse with other alcohol-induced disorder; C34.90 Malignant neoplasm of unspecified part of unspecified bronchus or lung; F17.200 Nicotine dependence, unspecified, uncomplicated; Z82.49 Family history of ischemic heart disease and other diseases of the circulatory system; Z88.5 Allergy status to narcotic agent; Z79.899 Other long term (current) drug therapy
CPT/HCPCS: C9113

== ENCOUNTER → 2018-02-18 | Outpatient (CLI) | payer OTHER | LOC: M RAD 07:10 | DX: F10.99 Alcohol use, unspecified with unspecified alcohol-induced disorder (principal); K30 Functional dyspepsia | CPT/HCPCS: 76705 ==

== ENCOUNTER 2018-04-17 22:26 | Emergency (ER) | payer OTHER ==
[2018-04-17 23:36] LABS: BASO % 0.4 % (0.0-1.0); EOS # 0.1 10^3/uL (0.0-0.50); EOS % 2.3 % (0.0-3.0); HEMATOCRIT 39.3 % (42.0-52.0); HEMOGLOBIN 13.5 g/dl (13.5-17.5); IMMATURE GRANULOCYTE % 0.4 % (0-3.0); LYMPH # 1.8 10^3/uL (1.5-4.5); LYMPH % 31.1 % (24.0-44.0); MEAN CORPUSCULAR HEMOGLOBIN 32.9 pg (27.0-33.0); MEAN CORPUSCULAR HGB CONC 34.4 g/dl (32.0-36.5); MEAN CORPUSCULAR VOLUME 95.9 fl (80.0-96.0); MONO # 0.6 10^3/uL (0.0-0.8); MONO % 10.3 % (0.0-5.0); NEUTROPHILS # 3.1 10^3/uL (1.8-7.7); NEUTROPHILS % 55.5 % (36.0-66.0); PLATELET COUNT, AUTOMATED 242 10^3/uL (150-450); RED CELL DISTRIBUTION WIDTH 12.9 % (11.5-14.5); WHITE BLOOD COUNT 5.6 10^3/uL (4.0-10.0)
[2018-04-17 23:37] LABS: APPEARANCE, URINE CLEAR (CLEAR); BACTERIA, URINE AUTO NEGATIVE (NEGATIVE); BILIRUBIN, URINE AUTO NEGATIVE (NEGATIVE); BLOOD, URINE BLOOD NEGATIVE (NEGATIVE); COLOR, URINE COLORLESS (YELLOW); GLUCOSE, URINE (UA) AUTO NEGATIVE (NEGATIVE); KETONE, URINE AUTO NEGATIVE (NEGATIVE); LEUKOCYTE ESTERASE, URINE AUTO NEGATIVE (NEGATIVE); NITRITE, URINE AUTO NEGATIVE (NEGATIVE); PROTEIN, URINE AUTO NEGATIVE (NEGATIVE); RBC, URINE AUTO 0 /HPF (0-3); SQUAMOUS EPITHELIAL CELL UR AU 0 /HPF (0-6); UROBILINOGEN, URINE AUTO 0.2 mg/dL (0.0-2.0); WBC, URINE AUTO 0 /HPF (0-3)
[2018-04-18] LABS: ALBUMIN 3.8 GM/DL (3.2-5.2); ALBUMIN/GLOBULIN RATIO 1.19 (1.00-1.93); ALKALINE PHOSPHATASE 54 U/L (45-117); ALT/SGPT 57 U/L (12-78); ANION GAP 12 MEQ/L (8-16); AST/SGOT 46 U/L (7-37); BILIRUBIN,DIRECT 0.2 MG/DL (0.0-0.2); BILIRUBIN,TOTAL 0.4 MG/DL (0.2-1.0); BLOOD UREA NITROGEN 8 MG/DL (7-18); CALCIUM LEVEL 8.6 MG/DL (8.5-10.1); CARBON DIOXIDE LEVEL 23 MEQ/L (21-32); CHLORIDE LEVEL 108 MEQ/L (98-107); CREATININE FOR GFR 0.94 MG/DL (0.70-1.30); ETHYL ALCOHOL (ETHANOL) 0.114 % (0.000-0.010); GLOMERULAR FILTRATION RATE > 60.0 (>56); GLUCOSE, FASTING 70 MG/DL (70-100); LIPASE 143 U/L (73-393); POTASSIUM SERUM 3.4 MEQ/L (3.5-5.1); SODIUM LEVEL 143 MEQ/L (136-145)
== END 2018-04-18 01:18 | disposition home or self-care (01) ==
LOC: M ED 04-18 01:18
DX: F10.129 Alcohol abuse with intoxication, unspecified (principal); K76.0 Fatty (change of) liver, not elsewhere classified; K40.90 Unilateral inguinal hernia, without obstruction or gangrene, not specified as recurrent; Z85.118 Personal history of other malignant neoplasm of bronchus and lung; K21.9 Gastro-esophageal reflux disease without esophagitis; J44.9 Chronic obstructive pulmonary disease, unspecified; F32.9 Major depressive disorder, single episode, unspecified; Z72.0 Tobacco use; Z79.899 Other long term (current) drug therapy; Z88.5 Allergy status to narcotic agent
CPT/HCPCS: 74176

== ENCOUNTER 2018-05-28 22:47 | Emergency (ER) | payer OTHER ==
[2018-05-29 00:24] LABS: ALBUMIN 3.6 GM/DL (3.2-5.2); ALKALINE PHOSPHATASE 59 U/L (45-117); ALT/SGPT 63 U/L (12-78); ANION GAP 15 MEQ/L (8-16); AST/SGOT 77 U/L (7-37); BILIRUBIN,DIRECT 0.2 MG/DL (0.0-0.2); BILIRUBIN,TOTAL 0.6 MG/DL (0.2-1.0); BLOOD UREA NITROGEN 7 MG/DL (7-18); CALCIUM LEVEL 8.2 MG/DL (8.5-10.1); CARBON DIOXIDE LEVEL 23 MEQ/L (21-32); CHLORIDE LEVEL 100 MEQ/L (98-107); CREATININE FOR GFR 0.93 MG/DL (0.70-1.30); GLOMERULAR FILTRATION RATE > 60.0 (>56); GLUCOSE, FASTING 93 MG/DL (70-100); LIPASE 210 U/L (73-393); POTASSIUM SERUM 3.2 MEQ/L (3.5-5.1); SODIUM LEVEL 138 MEQ/L (136-145); TOTAL PROTEIN 7.2 GM/DL (6.4-8.2)
[2018-05-29 00:51] LABS: BASO % 0.4 % (0.0-1.0); EOS # 0.1 10^3/uL (0.0-0.50); EOS % 1.4 % (0.0-3.0); HEMATOCRIT 36.8 % (42.0-52.0); HEMOGLOBIN 13.1 g/dl (13.5-17.5); IMMATURE GRANULOCYTE % 0.6 % (0-3.0); LYMPH % 28.7 % (24.0-44.0); MEAN CORPUSCULAR HEMOGLOBIN 33.8 pg (27.0-33.0); MEAN CORPUSCULAR HGB CONC 35.6 g/dl (32.0-36.5); MEAN CORPUSCULAR VOLUME 94.8 fl (80.0-96.0); MONO # 0.8 10^3/uL (0.0-0.8); MONO % 11.7 % (0.0-5.0); NEUTROPHILS % 57.2 % (36.0-66.0); PLATELET COUNT, AUTOMATED 251 10^3/uL (150-450); RED BLOOD COUNT 3.88 10^6/uL (4.30-6.10); RED CELL DISTRIBUTION WIDTH 12.6 % (11.5-14.5)
[2018-05-29 01:27] LABS: ETHYL ALCOHOL (ETHANOL) 0.252 % (0.000-0.010)
[2018-05-29] MEDS ORDERED: MORPHINE 4 MG/ML 1ML VIAL/SYRINGE (J2270) IV (01:30)
[2018-05-29] MEDS: fentaNYL 100 MCG/2 ML INJECTION (J3010) IV (01:34)
[2018-05-29] MEDS: ONDANSETRON 4MG/2ML VIAL (J2405) IV (01:34)
== END 2018-05-29 03:30 | disposition home or self-care (01) ==
LOC: M ED 22:47
DX: K29.20 Alcoholic gastritis without bleeding (principal); R10.9 Unspecified abdominal pain; G89.29 Other chronic pain; F17.210 Nicotine dependence, cigarettes, uncomplicated; Z88.5 Allergy status to narcotic agent
CPT/HCPCS: J2405

== ENCOUNTER 2018-07-13 18:37 | Inpatient (IN) | payer MEDICAID, OTHER ==
[2018-07-13 20:28] LABS: HEMATOCRIT 38.5 % (42.0-52.0); HEMOGLOBIN 13.3 g/dl (13.5-17.5); MEAN CORPUSCULAR HEMOGLOBIN 33.5 pg (27.0-33.0); MEAN CORPUSCULAR HGB CONC 34.5 g/dl (32.0-36.5); PLATELET COUNT, AUTOMATED 331 10^3/uL (150-450); RED BLOOD COUNT 3.97 10^6/uL (4.30-6.10); RED CELL DISTRIBUTION WIDTH 12.4 % (11.5-14.5); WHITE BLOOD COUNT 7.9 10^3/uL (4.0-10.0)
[2018-07-13 20:47] LABS: AMPHETAMINES LEVEL URINE NEGATIVE (NEGATIVE); BARBITURATES URINE NEGATIVE (NEGATIVE); BENZODIAZEPINES URINE NEGATIVE (NEGATIVE); CANNABINOIDS URINE NEGATIVE (NEGATIVE); COCAINE METABOLITE URINE NEGATIVE (NEGATIVE); METHADONE URINE NEGATIVE (NEGATIVE); OPIATES URINE NEGATIVE (NEGATIVE); PHENCYCLIDINE URINE NEGATIVE (NEGATIVE)
[2018-07-13] MEDS: LORazepam 0.5 MG TAB PO (20:50)
[2018-07-13 20:59] LABS: ACETAMINOPHEN LEVEL < 2.0 UG/ML (10.0-30.0); ALBUMIN 3.7 GM/DL (3.2-5.2); ALBUMIN/GLOBULIN RATIO 1.16 (1.00-1.93); ALKALINE PHOSPHATASE 61 U/L (45-117); ALT/SGPT 35 U/L (12-78); ANION GAP 10 MEQ/L (8-16); AST/SGOT 25 U/L (7-37); BILIRUBIN,DIRECT 0.1 MG/DL (0.0-0.2); BILIRUBIN,TOTAL 0.3 MG/DL (0.2-1.0); BLOOD UREA NITROGEN 11 MG/DL (7-18); CALCIUM LEVEL 8.4 MG/DL (8.5-10.1); CARBON DIOXIDE LEVEL 24 MEQ/L (21-32); CHLORIDE LEVEL 108 MEQ/L (98-107); CREATININE FOR GFR 0.93 MG/DL (0.70-1.30); GLOMERULAR FILTRATION RATE > 60.0 (>56); GLUCOSE, FASTING 76 MG/DL (70-100); POTASSIUM SERUM 3.9 MEQ/L (3.5-5.1); SALICYLATE LEVEL 2.1 MG/DL (5.0-30.0); SODIUM LEVEL 142 MEQ/L (136-145); TOTAL PROTEIN 6.9 GM/DL (6.4-8.2)
[2018-07-13] MEDS: KETOROLAC 60 MG/2 ML VIAL (J1885) IM (22:49)
[2018-07-14] MEDS: FOLIC ACID 1 MG TAB PO (09:00)
[2018-07-14] MEDS: MULTIVITAMINS/MINERALS THERAP 1 TAB PO (09:00)
[2018-07-14] MEDS ORDERED: MAALOX 30 ML SUSP *UDC PO (14:15)
[2018-07-14] MEDS ORDERED: MOM 30ML SUSPENSION UDC PO (14:15)
[2018-07-14] MEDS ORDERED: LORazepam 2 MG TAB PO (16:30)
[2018-07-14] MEDS: THIAMINE 100 MG TAB PO (16:47)
[2018-07-14] MEDS: traZODone 50 MG TAB PO (21:36)
[2018-07-15] MEDS ORDERED: AMPHETAMINE/DEXTROAMPHETAMINE 5 MG *ER* CAPSULE (ADDERALL XR) PO (08:00)
[2018-07-15] MEDS: MULTIVITAMINS/MINERALS THERAP 1 TAB PO (09:00)
[2018-07-15] MEDS: THIAMINE 100 MG TAB PO ×2 (09:00→20:44)
[2018-07-15] MEDS: FOLIC ACID 1 MG TAB PO (09:00)
[2018-07-15] MEDS: OLANZapine 2.5MG TABLET PO (11:35)
[2018-07-15] MEDS: CitaloPRAM (CeleXA) 20 MG TAB PO (11:35)
[2018-07-15] MEDS: OLANZapine 5 MG TAB PO (20:44)
[2018-07-15] MEDS: traZODone 50 MG TAB PO (20:45)
[2018-07-16] MEDS: FOLIC ACID 1 MG TAB PO (08:17)
[2018-07-16] MEDS: MULTIVITAMINS/MINERALS THERAP 1 TAB PO (08:17)
[2018-07-16] MEDS: THIAMINE 100 MG TAB PO ×2 (08:18→20:19)
[2018-07-16] MEDS: OLANZapine 2.5MG TABLET PO (08:18)
[2018-07-16] MEDS: CitaloPRAM (CeleXA) 20 MG TAB PO (08:18)
[2018-07-16] MEDS: OLANZapine 5 MG TAB PO (20:19)
[2018-07-16] MEDS: DOXEPIN 10 MG CAP PO (20:19)
[2018-07-17] MEDS: THIAMINE 100 MG TAB PO (08:12)
[2018-07-17] MEDS: FOLIC ACID 1 MG TAB PO (08:12)
[2018-07-17] MEDS: MULTIVITAMINS/MINERALS THERAP 1 TAB PO (08:12)
[2018-07-17] MEDS: OLANZapine 2.5MG TABLET PO (08:13)
[2018-07-17] MEDS: CitaloPRAM (CeleXA) 20 MG TAB PO (08:13)
[2018-07-17] MEDS: DOXEPIN 10 MG CAP PO (20:29)
[2018-07-17] MEDS: OLANZapine 5 MG TAB PO (20:29)
[2018-07-17] MEDS: ACETAMINOPHEN TAB 650MG DOSE (2X325MG) PO (20:30)
[2018-07-17] MEDS: IBUPROFEN 600 MG TAB PO (22:29)
[2018-07-18] MEDS: FOLIC ACID 1 MG TAB PO (08:34)
[2018-07-18] MEDS: MULTIVITAMINS/MINERALS THERAP 1 TAB PO (08:34)
[2018-07-18] MEDS: CitaloPRAM (CeleXA) 20 MG TAB PO (08:34)
[2018-07-18] MEDS: OLANZapine 2.5MG TABLET PO (08:34)
[2018-07-18] MEDS: OLANZapine 5 MG TAB PO (20:13)
[2018-07-18] MEDS: ACETAMINOPHEN TAB 650MG DOSE (2X325MG) PO (20:14)
[2018-07-18] MEDS: DOXEPIN 10 MG CAP PO (21:40)
[2018-07-19] MEDS: MULTIVITAMINS/MINERALS THERAP 1 TAB PO (08:50)
[2018-07-19] MEDS: CitaloPRAM (CeleXA) 20 MG TAB PO (08:50)
[2018-07-19] MEDS: FOLIC ACID 1 MG TAB PO (08:50)
[2018-07-19] MEDS: OLANZapine 5 MG TAB PO ×2 (08:50→20:03)
[2018-07-19] MEDS: DOXEPIN 10 MG CAP PO (20:40)
[2018-07-20] MEDS: CitaloPRAM (CeleXA) 20 MG TAB PO (08:11)
[2018-07-20] MEDS: OLANZapine 5 MG TAB PO ×2 (08:11→20:04)
[2018-07-20] MEDS: MULTIVITAMINS/MINERALS THERAP 1 TAB PO (08:12)
[2018-07-20] MEDS: FOLIC ACID 1 MG TAB PO (08:12)
[2018-07-20] MEDS: BENZTROPINE 1 MG TAB PO ×2 (11:36→20:03)
[2018-07-20] MEDS: DOXEPIN 10 MG CAP PO (20:03)
[2018-07-21] MEDS: FOLIC ACID 1 MG TAB PO (09:00)
[2018-07-21] MEDS: MULTIVITAMINS/MINERALS THERAP 1 TAB PO (09:00)
[2018-07-21] MEDS: BENZTROPINE 1 MG TAB PO (09:07)
[2018-07-21] MEDS: OLANZapine 5 MG TAB PO (09:07)
[2018-07-21] MEDS: CitaloPRAM (CeleXA) 20 MG TAB PO (09:07)
== END 2018-07-21 14:20 | disposition home or self-care (01) | DRG 753 ==
LOC: M ED INP 07-14 14:07 → M ED 18:37 → M PSY 07-14 15:38
DX: F31.60 Bipolar disorder, current episode mixed, unspecified (principal); F10.10 Alcohol abuse, uncomplicated; Z88.5 Allergy status to narcotic agent; I25.2 Old myocardial infarction; I25.10 Atherosclerotic heart disease of native coronary artery without angina pectoris; R91.1 Solitary pulmonary nodule; Z77.090 Contact with and (suspected) exposure to asbestos; M51.34 Other intervertebral disc degeneration, thoracic region; K21.9 Gastro-esophageal reflux disease without esophagitis; F17.210 Nicotine dependence, cigarettes, uncomplicated

== ENCOUNTER 2018-08-25 22:53 | Emergency (ER) | payer OTHER, MEDICAID ==
[2018-08-25 23:14] LABS: BASO % 0.5 % (0.0-1.0); EOS # 0.2 10^3/uL (0.0-0.50); EOS % 2.6 % (0.0-3.0); HEMATOCRIT 42.1 % (42.0-52.0); HEMOGLOBIN 14.1 g/dl (13.5-17.5); IMMATURE GRANULOCYTE % 0.6 % (0-3.0); LYMPH # 3.1 10^3/uL (1.5-4.5); LYMPH % 39.3 % (24.0-44.0); MEAN CORPUSCULAR HEMOGLOBIN 32.3 pg (27.0-33.0); MEAN CORPUSCULAR HGB CONC 33.5 g/dl (32.0-36.5); MEAN CORPUSCULAR VOLUME 96.6 fl (80.0-96.0); MONO # 0.6 10^3/uL (0.0-0.8); MONO % 7.3 % (0.0-5.0); NEUTROPHILS # 3.9 10^3/uL (1.8-7.7); NEUTROPHILS % 49.7 % (36.0-66.0); PLATELET COUNT, AUTOMATED 311 10^3/uL (150-450); RED BLOOD COUNT 4.36 10^6/uL (4.30-6.10); RED CELL DISTRIBUTION WIDTH 12.5 % (11.5-14.5); WHITE BLOOD COUNT 7.9 10^3/uL (4.0-10.0)
[2018-08-25 23:26] LABS: PROTHROMBIN TIME 13.3 SECONDS (12.1-14.4)
[2018-08-25 23:40] LABS: ALBUMIN 3.8 GM/DL (3.2-5.2); ALKALINE PHOSPHATASE 68 U/L (45-117); ALT/SGPT 22 U/L (12-78); ANION GAP 10 MEQ/L (8-16); AST/SGOT 23 U/L (7-37); BILIRUBIN,DIRECT < 0.1 MG/DL (0.0-0.2); BILIRUBIN,TOTAL 0.2 MG/DL (0.2-1.0); BLOOD UREA NITROGEN 6 MG/DL (7-18); CALCIUM LEVEL 8.3 MG/DL (8.5-10.1); CARBON DIOXIDE LEVEL 24 MEQ/L (21-32); CHLORIDE LEVEL 108 MEQ/L (98-107); CPK CREATINE PHOSPHOKINASE 230 U/L (39-308); ETHYL ALCOHOL (ETHANOL) 0.261 % (0.000-0.010); GLOMERULAR FILTRATION RATE > 60.0 (>56); GLUCOSE, FASTING 92 MG/DL (70-100); LIPASE 158 U/L (73-393); MB/CK RELATIVE INDEX 0.83 (< OR =4); POTASSIUM SERUM 3.7 MEQ/L (3.5-5.1); SALICYLATE LEVEL 2.7 MG/DL (5.0-30.0); SODIUM LEVEL 142 MEQ/L (136-145); TOTAL PROTEIN 7.6 GM/DL (6.4-8.2); TROPONIN I < 0.02 NG/ML (< 0.10)
[2018-08-25 23:41] LABS: ACETAMINOPHEN LEVEL < 2.0 UG/ML (10.0-30.0)
[2018-08-26 00:06] LABS: AMPHETAMINES LEVEL URINE NEGATIVE (NEGATIVE); BARBITURATES URINE NEGATIVE (NEGATIVE); BENZODIAZEPINES URINE NEGATIVE (NEGATIVE); CANNABINOIDS URINE NEGATIVE (NEGATIVE); COCAINE METABOLITE URINE NEGATIVE (NEGATIVE); METHADONE URINE NEGATIVE (NEGATIVE); OPIATES URINE NEGATIVE (NEGATIVE); PHENCYCLIDINE URINE NEGATIVE (NEGATIVE)
[2018-08-26] MEDS ORDERED: ISOVUE-370 76% 100ML VIAL (Q9967) As Ordered (00:24)
[2018-08-26] MEDS: ACETAMINOPHEN TAB 650MG DOSE (2X325MG) PO ×2 (00:47)
== END 2018-08-26 07:13 | disposition home or self-care (01) ==
LOC: M ED 22:53
DX: R07.9 Chest pain, unspecified (principal); F10.129 Alcohol abuse with intoxication, unspecified; Y90.1 Blood alcohol level of 20-39 mg/100 ml; R45.851 Suicidal ideations; I25.10 Atherosclerotic heart disease of native coronary artery without angina pectoris; I25.2 Old myocardial infarction; F33.9 Major depressive disorder, recurrent, unspecified; Z79.899 Other long term (current) drug therapy; Z88.5 Allergy status to narcotic agent
CPT/HCPCS: Q9967

== ENCOUNTER → 2018-10-09 | Outpatient (CLI) | payer OTHER ==
[~2018-10-09] MED LIST changes: +ADDE20CA3 PO; +BENZ-52 PO; +CARA1TAB6 PO; +CELE20TA PO; -DIVA500T3 PO; +DIVA500T94 PO; +DOXE10CA PO; +FOLI1TAB11 PO; -FOLI1TAB4 PO; +HYDRO50TAB PO; +HYOS1TAB PO; +IPRA0.00 IN; -IPRASOL4 IN; +METO5TAB2 PO; +MUCI600T37 PO; +OLAN2.5T PO; +RANI1SYP PO; -TRAZ-136 PO; +TRAZ-163 PO; +TRAZO50TA PO
--- NOTE | 2018-10-10 04:47 | REP ---
Clinical: Inguinal hernia. Comparison: 09/25/2018. Technique: Real time arthur scale ultrasound examination using linear high frequency transducer. Findings: There is evidence for a nonreducible right inguinal hernia containing fat and nonobstructed bowel through the internal ring. The peritoneal defect measures 2.6 cm at rest and extends to 2.8 cm on Valsalva. Small amount of fat is identified within the left groin at the proximal portion of the canal which may reflect changes related to prior repair versus new small hernia. Impression: 1. Nonreducible right inguinal hernia via the internal ring containing fat and nonreducible small bowel with a defect measuring between 2.6 - 2.8 cm. Electronically Signed by Isaias Moser MD 10/10/2018 04:38 A
== END ==
LOC: M RAD 09:39
PROVIDERS: ATTEND Surgery
DX: K40.90 Unilateral inguinal hernia, without obstruction or gangrene, not specified as recurrent (principal)

== ENCOUNTER → 2018-10-15 | Outpatient (REF) | payer OTHER ==
[~2018-10-15] MED LIST changes: +OLAN10TA2 PO
[2018-10-15 17:22] LABS: HEMATOCRIT 42.6 % (42.0-52.0); HEMOGLOBIN 14.4 g/dl (13.5-17.5); MEAN CORPUSCULAR HEMOGLOBIN 32.3 pg (27.0-33.0); MEAN CORPUSCULAR HGB CONC 33.8 g/dl (32.0-36.5); MEAN CORPUSCULAR VOLUME 95.5 fl (80.0-96.0); PLATELET COUNT, AUTOMATED 355 10^3/uL (150-450); RED BLOOD COUNT 4.46 10^6/uL (4.30-6.10); WHITE BLOOD COUNT 9.5 10^3/uL (4.0-10.0)
[2018-10-15 17:25] LABS: ALBUMIN 3.9 GM/DL (3.2-5.2); ALT/SGPT 26 U/L (12-78); BILIRUBIN,TOTAL 0.2 MG/DL (0.2-1.0); BLOOD UREA NITROGEN 9 MG/DL (7-18); CALCIUM LEVEL 8.9 MG/DL (8.5-10.1); CARBON DIOXIDE LEVEL 31 MEQ/L (21-32); CHLORIDE LEVEL 104 MEQ/L (98-107); GLOMERULAR FILTRATION RATE > 60.0 (>56); GLUCOSE, FASTING 93 MG/DL (70-100); POTASSIUM SERUM 4.2 MEQ/L (3.5-5.1); SODIUM LEVEL 140 MEQ/L (136-145); TOTAL PROTEIN 7.1 GM/DL (6.4-8.2)
[2018-10-15 17:52] LABS: ATYPICAL LYMPH 10 % (0-5); BASOPHILS 2 % (0-4); EOSINOPHILS 2 % (0-5); LYMPHOCYTES 22 % (16-52); METAMYELOCYTES 1 % (0-0); MONOCYTES 7 % (0-8); NEUTROPHILS 51 % (35-75); PLATELET ESTIMATE NORMAL (NORMAL)
[2018-10-15 17:53] LABS: TOXIC VACUOLATION 1+
== END ==
LOC: M LAB REF 16:47
PROVIDERS: ATTEND Nurse Practitioner Family
DX: K46.9 Unspecified abdominal hernia without obstruction or gangrene (principal)

== ENCOUNTER 2018-10-17 20:43 | Emergency (ER) | payer OTHER ==
[~2018-10-17] VITALS: Ht 175.3 cm; Wt 69.1 kg
[~2018-10-17 20:43] MED LIST changes: -OLAN10TA2 PO
[2018-10-17] MEDS ORDERED: OLAN10TA2 PO (21:06)
[2018-10-17 21:52] LABS: HEMATOCRIT 41.8 % (42.0-52.0); HEMOGLOBIN 14.3 g/dl (13.5-17.5); MEAN CORPUSCULAR HEMOGLOBIN 32.4 pg (27.0-33.0); MEAN CORPUSCULAR HGB CONC 34.2 g/dl (32.0-36.5); MEAN CORPUSCULAR VOLUME 94.6 fl (80.0-96.0); PLATELET COUNT, AUTOMATED 343 10^3/uL (150-450); RED BLOOD COUNT 4.42 10^6/uL (4.30-6.10); WHITE BLOOD COUNT 13.3 10^3/uL (4.0-10.0)
[2018-10-17 22:02] LABS: AMPHETAMINES LEVEL URINE NEGATIVE (NEGATIVE); BARBITURATES URINE NEGATIVE (NEGATIVE); BENZODIAZEPINES URINE NEGATIVE (NEGATIVE); CANNABINOIDS URINE NEGATIVE (NEGATIVE); COCAINE METABOLITE URINE NEGATIVE (NEGATIVE); METHADONE URINE NEGATIVE (NEGATIVE); OPIATES URINE NEGATIVE (NEGATIVE); PHENCYCLIDINE URINE NEGATIVE (NEGATIVE)
[2018-10-17 22:16] LABS: ACETAMINOPHEN LEVEL < 2.0 UG/ML (10.0-30.0); ALBUMIN 4.1 GM/DL (3.2-5.2); ALT/SGPT 33 U/L (12-78); BILIRUBIN,DIRECT < 0.1 MG/DL (0.0-0.2); BILIRUBIN,TOTAL 0.2 MG/DL (0.2-1.0); BLOOD UREA NITROGEN 9 MG/DL (7-18); CALCIUM LEVEL 8.4 MG/DL (8.5-10.1); CARBON DIOXIDE LEVEL 23 MEQ/L (21-32); CHLORIDE LEVEL 103 MEQ/L (98-107); CREATININE FOR GFR 1.03 MG/DL (0.70-1.30); ETHYL ALCOHOL (ETHANOL) 0.186 % (0.000-0.010); GLOMERULAR FILTRATION RATE > 60.0 (>56); GLUCOSE, FASTING 109 MG/DL (70-100); POTASSIUM SERUM 3.7 MEQ/L (3.5-5.1); SALICYLATE LEVEL 2.5 MG/DL (5.0-30.0); SODIUM LEVEL 138 MEQ/L (136-145); TOTAL PROTEIN 7.8 GM/DL (6.4-8.2)
[2018-10-17 23:42] VITALS: BP 105/61
== END 2018-10-17 23:43 | disposition home or self-care (01) ==
LOC: M ED 20:43
DX: F33.9 Major depressive disorder, recurrent, unspecified (principal); F10.229 Alcohol dependence with intoxication, unspecified; R45.850 Homicidal ideations; R45.851 Suicidal ideations; I25.10 Atherosclerotic heart disease of native coronary artery without angina pectoris; I25.2 Old myocardial infarction; F41.9 Anxiety disorder, unspecified; F17.200 Nicotine dependence, unspecified, uncomplicated; Z88.5 Allergy status to narcotic agent; Z79.899 Other long term (current) drug therapy
CPT/HCPCS: 36415; 80048; 80076; 80307; 84443; 85027; 99284; G0480

== ENCOUNTER 2018-10-27 23:20 | Emergency (ER) | payer OTHER ==
[~2018-10-27 23:20] MED LIST changes: +OLAN10TA2 PO
[2018-10-28 00:49] LABS: BLOOD UREA NITROGEN 10 MG/DL (7-18); CALCIUM LEVEL 8.3 MG/DL (8.5-10.1); CARBON DIOXIDE LEVEL 26 MEQ/L (21-32); CHLORIDE LEVEL 108 MEQ/L (98-107); CREATININE FOR GFR 0.85 MG/DL (0.70-1.30); ETHYL ALCOHOL (ETHANOL) 0.227 % (0.000-0.010); GLOMERULAR FILTRATION RATE > 60.0 (>56); GLUCOSE, FASTING 98 MG/DL (70-100); POTASSIUM SERUM 3.9 MEQ/L (3.5-5.1); SODIUM LEVEL 144 MEQ/L (136-145)
[2018-10-28 01:15] VITALS: BP 104/67
== END 2018-10-28 01:22 | disposition home or self-care (01) ==
LOC: M ED 23:20
DX: F10.220 Alcohol dependence with intoxication, uncomplicated (principal); F17.200 Nicotine dependence, unspecified, uncomplicated; F91.9 Conduct disorder, unspecified; Z88.5 Allergy status to narcotic agent; Z79.899 Other long term (current) drug therapy
CPT/HCPCS: 36415; 80048; 99284; G0480

== ENCOUNTER 2018-11-28 07:45 | Day surgery (SDC) | payer OTHER ==
[~2018-11-28] VITALS: Ht 170.2 cm; Wt 69.3 kg
[~2018-11-28 07:45] MED LIST changes: +LR 1,000 ML IV ONE
[2018-11-28] MEDS ORDERED: MIDAZOLAM INJ 2 MG/2 ML VIAL (J2250) As Ordered ONE (08:26)
[2018-11-28] MEDS ORDERED: LIDOCAINE 2% INJ 100 MG/5 ML SDV (FOR ANES.) As Ordered ONE (08:26)
[2018-11-28] MEDS ORDERED: ROCURONIUM BROMIDE 50 MG/5 ML VIAL As Ordered ONE (08:26)
[2018-11-28] MEDS ORDERED: fentaNYL 250 MCG/5 ML INJECTION (J3010) As Ordered ONE (08:26)
[2018-11-28] MEDS ORDERED: PROPOFOL 200 MG/20 ML VIAL As Ordered ONE (08:26)
[2018-11-28] MEDS ORDERED: BUPIVACAINE/EPIN 0.25% 30 ML VIAL As Ordered ONE (11:36)
[2018-11-28] MEDS ORDERED: NEOSTIGMINE 10 MG/10 ML VIAL (J2710) As Ordered ONE (12:44)
[2018-11-28] MEDS ORDERED: dexameTHASONE 4 MG/ML 1ML VIAL (J1100) As Ordered ONE (12:44)
[2018-11-28] MEDS ORDERED: METOCLOPRAMIDE INJ 10MG/2ML VIAL (J2765) As Ordered ONE (12:44)
[2018-11-28] MEDS ORDERED: GLYCOPYRROLATE INJ 0.2 MG/ML 2 ML VIAL As Ordered ONE (12:44)
[2018-11-28] MEDS ORDERED: ONDANSETRON 4MG/2ML VIAL (J2405) As Ordered ONE (12:44)
[2018-11-28] MEDS ORDERED: KETOROLAC 60 MG/2 ML VIAL (J1885) As Ordered ONE (12:44)
[2018-11-28] MEDS ORDERED: LR 1,000 ML IV SCH (13:30)
[2018-11-28] MEDS: fentaNYL 100 MCG/2 ML INJECTION (J3010) IV PRN ×4 (13:30→13:45)
[2018-11-28] MEDS ORDERED: ONDANSETRON 4MG/2ML VIAL (J2405) IV PRN (13:30)
[2018-11-28] MEDS: NORCO, ANEXSIA 5/325MG TABLET (HYDROcodone/ACETAMINOPHEN) PO PRN ×4 (13:30→23:37)
[2018-11-28 18:00] VITALS: BP 113/75
--- NOTE | 2018-11-28 19:50 | RO ---
DATE OF PROCEDURE: 11/28/2018 PREOPERATIVE DIAGNOSIS: Right inguinal hernia, possible left. POSTOPERATIVE DIAGNOSIS: Right inguinal hernia. SURGEON: Dr. Luis Perry SLAG WHEELER: Kim Carrion ANESTHESIA: General ESTIMATED BLOOD LOSS: 5 mL COMPLICATIONS: None. INDICATIONS FOR PROCEDURE The patient 53-year-old male who presents with right groin and left groin pain, found have a right groin hernia on CT and physical exam. Recommendation was to proceed with a right, possible left inguinal hernia repairs. Risks and benefits of the procedure were discussed in detail with the patient. Risks include but are not limited bleeding, infection, hernia formation, hernia recurrence, damage to surrounding structures, need for further surgery. Informed consent was obtained and procedure was planned. PROCEDURE The patient brought back to operating room 7. After sufficient sedation, the abdomen was sterilely prepped and draped. Next, a time-out was done to confirm proper patient and proper procedure. Following that, an 8 mm incision made supraumbilically in the midline. Veress needle was inserted and the abdomen was insufflated to 50 mmHg. Next, the Veress needle was removed. An 8 mm robotic OptiVu port was used to gain access to the abdomen. Once the abdomen is entered two more 8 mm robotic ports were placed in the left and right midabdomen. The robot was then connected to the camera port, targeted to the pelvis. The left and right arms were then docked and the instruments were all placed. Next, from the console I was able to look around the pelvis. There were no signs of any hernia on the left so we performed a right-sided hernia repair, starting off with a curved incision in the right peritoneum, dissecting posteriorly and laterally through the preperitoneal space then medially all the way until the pubic symphysis was reached. Next, found the cord structures, freed them up from a large preperitoneal cord lipoma, that was all dissected free. Once that was all dissected free it was reduced posteriorly. A Bard 3-D Max medium mesh was placed into the right groin, sutured to pubic symphysis with #2-0 Vicryl suture. Peritoneum was then closed over top of the mesh with a running #2-0 V-Loc thus ending procedure. The robot was then undocked and ports were removed. Abdomen was desufflated. Skin incisions were closed with #4-0 Vicryl subcuticular sutures. The abdomen was cleaned and dried. Steri-Strips, 4 x 4 and tape were applied thus ending procedure.
[2018-11-28 22:00] VITALS: BP 107/70
[2018-11-29 02:00] VITALS: BP 105/66
[2018-11-29 06:00] VITALS: BP 125/67
--- NOTE | 2018-11-29 09:57 | IPN ---
DATE OF SERVICE: 11/29/2018 The patient has been doing relatively well overnight. However, still is having some discomfort and pain and has not really been walking around much. He living at home alone and at this point is really not mobilizing and active enough for himself to go home I feel today but otherwise he seems to be tolerating a diet, has some pain and is asking for some pain medication this morning. He has had no fevers or chills and no evidence of infection, has had no other GI complaints at this time. Incisions are healing nicely without any erythema, drainage or discharge. IMPRESSION AND PLAN: The patient is status post robotic-assisted inguinal hernia surgery and seems to be making some good progress at this time although I do feel that he still needs to be increasing his activity a little bit more prior to discharge. Maybe we will be able to get him out later on today but I anticipate with his home situation that it will probably be tomorrow before we really feel comfortable with discharging him to home, and at that point if he has done well with some non-steroidals as well as some minimal narcotics, will get him discharged to home and follow up with Dr. Perry in 2-3 weeks.
[2018-11-29 10:00] VITALS: BP 115/76
[2018-11-29] MEDS: KETOROLAC 30 MG/ML VIAL (J1885) IV SCH ×3 (10:00→21:19)
[2018-11-29] MEDS: NORCO, ANEXSIA 5/325MG TABLET (HYDROcodone/ACETAMINOPHEN) PO PRN (13:56)
[2018-11-29 14:00] VITALS: BP 106/67
[2018-11-29 18:00] VITALS: BP 113/76
[2018-11-29 22:00] VITALS: BP 114/72
[2018-11-30 02:00] VITALS: BP 110/71
[2018-11-30] MEDS: KETOROLAC 30 MG/ML VIAL (J1885) IV SCH ×2 (03:18→09:46)
[2018-11-30 06:00] VITALS: BP 112/68
[2018-11-30 10:00] VITALS: BP 118/84
[2018-11-30] MEDS ORDERED: KETO10TAB PO (11:09)
[2018-11-30] MEDS: NORCO, ANEXSIA 5/325MG TABLET (HYDROcodone/ACETAMINOPHEN) PO PRN (12:52)
== END 2018-11-30 13:21 | disposition home or self-care (01) ==
LOC: M SDC 07:45 → M MSPAV 14:19 → M SDC 11-30 13:21
PROVIDERS: ATTEND Surgery
DX: K40.90 Unilateral inguinal hernia, without obstruction or gangrene, not specified as recurrent (principal); I25.10 Atherosclerotic heart disease of native coronary artery without angina pectoris; I25.2 Old myocardial infarction; R06.02 Shortness of breath; M12.9 Arthropathy, unspecified; M54.9 Dorsalgia, unspecified; F41.9 Anxiety disorder, unspecified; F32.9 Major depressive disorder, single episode, unspecified; J44.9 Chronic obstructive pulmonary disease, unspecified; K21.9 Gastro-esophageal reflux disease without esophagitis; Z88.5 Allergy status to narcotic agent; Z79.899 Other long term (current) drug therapy; Z87.81 Personal history of (healed) traumatic fracture; Z85.118 Personal history of other malignant neoplasm of bronchus and lung; Z72.0 Tobacco use
CPT/HCPCS: 49650; 96374; C1781; J0690; J1100; J1885; J2250; J2405; J2710; J2765; J3010

== ENCOUNTER 2018-12-05 18:58 | Emergency (ER) | payer OTHER ==
[~2018-12-05] VITALS: Ht 175.3 cm; Wt 70.0 kg
[~2018-12-05 18:58] MED LIST changes: +KETO10TAB PO; -LR 1,000 ML IV ONE
[2018-12-05 19:01] VITALS: BP 110/75
[2018-12-05] MEDS ORDERED: KETOROLAC 30 MG/ML VIAL (J1885) IV ONE (19:15)
[2018-12-05] MEDS ORDERED: KETOROLAC 60 MG/2 ML VIAL (J1885) IM ONE (19:30)
--- NOTE | 2018-12-05 20:07 | REP ---
Left ankle four views History: Injury There is an avulsion fracture of the the distal lateral fibula. There is no dislocation. The joint space is normal in appearance. Osteophytes are present on the inferior and posterior calcaneus. Soft tissue swelling is present. Impression: Avulsion fracture of the distal fibula. Electronically Signed by Michael Dejesus MD 12/05/2018 07:59 P
[2018-12-05] MEDS ORDERED: KETO10TAB PO (20:20)
== END 2018-12-05 20:42 | disposition home or self-care (01) ==
LOC: EDBD 18:58 → M ED 18:58
DX: S82.52XA Displaced fracture of medial malleolus of left tibia, initial encounter for closed fracture (principal); W00.9XXA Unspecified fall due to ice and snow, initial encounter; Y92.019 Unspecified place in single-family (private) house as the place of occurrence of the external cause
CPT/HCPCS: 73610; 96372; 96374; 99284; J1885

== ENCOUNTER 2019-01-01 17:47 | Inpatient (IN) | payer MEDICAID, OTHER ==
[~2019-01-01] VITALS: Ht 175.3 cm; Wt 68.1 kg
[~2019-01-01 17:47] MED LIST changes: -/ESOM40CA OR; -/MOXI40TA OR; -/OXAZ10CA OR; -/PANT40TA PO; -/RANI15TA PO; +AVEL1TAB2 OR; +NEXI1CAP3 OR; -NORC1TAB4 PO; +NORC1TAB7 PO; -OLAN2.5T PO; +OLAN2.5T25 PO; +OXAZ10CA25 OR; +OXYC1TAB23 PO; -PERCOCET PO; +RANI1TAB17 PO
[2019-01-01 18:30] LABS: HEMATOCRIT 40.3 % (42.0-52.0); HEMOGLOBIN 13.6 g/dl (13.5-17.5); MEAN CORPUSCULAR HEMOGLOBIN 32.2 pg (27.0-33.0); MEAN CORPUSCULAR HGB CONC 33.7 g/dl (32.0-36.5); MEAN CORPUSCULAR VOLUME 95.5 fl (80.0-96.0); PLATELET COUNT, AUTOMATED 291 10^3/uL (150-450); RED BLOOD COUNT 4.22 10^6/uL (4.30-6.10); WHITE BLOOD COUNT 9.5 10^3/uL (4.0-10.0)
--- NOTE | 2019-01-01 19:40 | REP ---
LEFT FOOT SERIES: Four views of the left foot performed. There is irregularity of the anterior superior calcaneus which could indicate a fracture. CT is recommended to further evaluate. I see no other evidence of acute fracture or dislocation of the left foot. IMPRESSION: Possible anterior calcaneal fracture. Recommend CT exam. Electronically Signed by Luis Hickman MD 01/01/2019 08:45 P
[2019-01-01 20:23] LABS: ACETAMINOPHEN LEVEL < 2.0 UG/ML (10.0-30.0); ALBUMIN 3.7 GM/DL (3.2-5.2); ALT/SGPT 21 U/L (12-78); BILIRUBIN,DIRECT < 0.1 MG/DL (0.0-0.2); BILIRUBIN,TOTAL 0.3 MG/DL (0.2-1.0); BLOOD UREA NITROGEN 13 MG/DL (7-18); CALCIUM LEVEL 8.6 MG/DL (8.5-10.1); CARBON DIOXIDE LEVEL 25 MEQ/L (21-32); CHLORIDE LEVEL 107 MEQ/L (98-107); CREATININE FOR GFR 1.13 MG/DL (0.70-1.30); ETHYL ALCOHOL (ETHANOL) 0.004 % (0.000-0.010); GLOMERULAR FILTRATION RATE > 60.0 (>56); GLUCOSE, FASTING 91 MG/DL (70-100); POTASSIUM SERUM 4.1 MEQ/L (3.5-5.1); SALICYLATE LEVEL 3.2 MG/DL (5.0-30.0); SODIUM LEVEL 140 MEQ/L (136-145); TOTAL PROTEIN 6.9 GM/DL (6.4-8.2)
[2019-01-01 20:50] LABS: AMPHETAMINES LEVEL URINE NEGATIVE (NEGATIVE); BARBITURATES URINE NEGATIVE (NEGATIVE); BENZODIAZEPINES URINE NEGATIVE (NEGATIVE); CANNABINOIDS URINE NEGATIVE (NEGATIVE); COCAINE METABOLITE URINE NEGATIVE (NEGATIVE)
[2019-01-01 20:51] LABS: METHADONE URINE NEGATIVE (NEGATIVE); OPIATES URINE NEGATIVE (NEGATIVE); PHENCYCLIDINE URINE NEGATIVE (NEGATIVE)
--- NOTE | 2019-01-01 21:43 | REPVR ---
EXAM: CT Left Lower Extremity Without Contrast, Foot EXAM DATE/TIME: 01/01/2019 9:02 PM CLINICAL HISTORY: 53 years old, male; Pain; Foot and heel; Left; Additional info: Without contrast, eval for calcaneal fracture TECHNIQUE: Imaging protocol: CT of the Left lower extremity without contrast was performed. Exam focused on the foot. Coronal and sagittal reformatted images were created and reviewed. Radiation optimization: All CT scans at this facility use at least one of these dose optimization techniques: automated exposure control; mA and/or kV adjustment per patient size (includes targeted exams where dose is matched to clinical indication); or iterative reconstruction. COMPARISON: CR Foot, complete LEFT 01/01/2019 6:33 PM FINDINGS: Bones/joints: The distal tibia appears intact. The talar head and talar dome appear intact. There is a 2 CM triangular fracture from the talus at the lateral subtalar joint with multiple comminuted fragments. This 2 cm wedge-shaped fragment extends into the sinus Tarsi. The posterior aspect of the calcaneus appears intact. There are comminuted fracture of the anterior calcaneus at its junction with the cuboid multiple linear hairline fractures are seen. The midportion of the calcaneus is mostly intact. The phalanges and metatarsals appear intact. The navicular and tarsal bones appear intact. Small cortical fragments are noted along the inferior margin of the talus medial side. The sustentaculum talus is intact. There is severe comminution of the anterior aspect of the calcaneus near the sinus Tarsi. Soft tissues: There are prominent cortical chip type fracture from the lateral malleolus at the attachment of the anterior talofibular ligament and there is severe swelling and injury to the shakila has longus and brevis tendons at this location. There is severe soft tissue swelling throughout the ankle. IMPRESSION: 1. Chip fractures of the lateral malleolus associated with severe swelling and injury to the peroneal longus and brevis. 2. 2 CM wedge-shaped fracture and smaller fractures from the talus extending into the sinus Tarsi on the lateral side at the subtalar joint. 3. Severely comminuted fracture involving much of the anterosuperior aspect of the calcaneus along the margin of the sinus Tarsi and extending to its articulation with the cuboid. Electronically signed by: Taurus Foster On 01/01/2019 21:42:58 PM
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
[2019-01-02] MEDS ORDERED: KETO10TAB PO (08:45)
[2019-01-02] MEDS ORDERED: OLAN5TAB PO (08:45)
[2019-01-02] MEDS ORDERED: BENZ-52 PO (08:45)
[2019-01-02] MEDS ORDERED: CELE20TA PO (08:45)
[2019-01-02] MEDS ORDERED: DOXE10CA PO (08:45)
[2019-01-02] MEDS ORDERED: MAALOX 30 ML SUSP *UDC PO PRN (13:45)
[2019-01-02] MEDS ORDERED: MOM 30ML SUSPENSION UDC PO PRN (13:45)
[2019-01-02] MEDS ORDERED: ACETAMINOPHEN TAB 650MG DOSE (2X325MG) PO PRN (13:45)
[2019-01-02 14:30] VITALS: BP 127/88
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
[2019-01-02 18:26] VITALS: BP 137/81
[2019-01-02] MEDS: BENZTROPINE 1 MG TAB PO SCH (21:44)
[2019-01-02] MEDS: DOXEPIN 10 MG CAP PO SCH (21:44)
[2019-01-02] MEDS: IBUPROFEN 800 MG TAB PO PRN (21:45)
[2019-01-03 06:53] VITALS: BP 123/75
[2019-01-03] MEDS ORDERED: OLANZapine 5 MG TAB PO SCH (09:00)
[2019-01-03] MEDS: CitaloPRAM (CeleXA) 20 MG TAB PO SCH (09:07)
[2019-01-03] MEDS: BENZTROPINE 1 MG TAB PO SCH ×2 (09:07→21:42)
[2019-01-03] MEDS: IBUPROFEN 800 MG TAB PO PRN (09:08)
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
[2019-01-03] MEDS ORDERED: hydrOXYzine 50 MG TAB PO PRN (11:00)
[2019-01-03] MEDS: OLANZapine 5 MG TAB PO SCH ×2 (15:12→21:42)
[2019-01-03 18:00] VITALS: BP 126/76
[2019-01-03] MEDS: DOXEPIN 10 MG CAP PO SCH (21:42)
[2019-01-03 21:48] VITALS: BP 126/76
[2019-01-04 06:42] VITALS: BP 105/62
[2019-01-04] MEDS: CitaloPRAM (CeleXA) 20 MG TAB PO SCH (08:20)
[2019-01-04] MEDS: OLANZapine 5 MG TAB PO SCH ×3 (08:20→20:08)
[2019-01-04] MEDS: IBUPROFEN 800 MG TAB PO PRN (08:21)
[2019-01-04] MEDS: BENZTROPINE 1 MG TAB PO SCH ×2 (08:21→20:08)
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
[2019-01-04 18:09] VITALS: BP 132/91
[2019-01-04] MEDS: DOXEPIN 10 MG CAP PO SCH (20:08)
[2019-01-05 07:04] VITALS: BP 136/87
[2019-01-05] MEDS: CitaloPRAM (CeleXA) 20 MG TAB PO SCH (08:39)
[2019-01-05] MEDS: OLANZapine 5 MG TAB PO SCH ×3 (08:39→21:39)
[2019-01-05] MEDS: BENZTROPINE 1 MG TAB PO SCH ×2 (08:39→21:39)
[2019-01-05] MEDS: IBUPROFEN 800 MG TAB PO PRN ×2 (08:39→21:40)
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
[2019-01-05 18:00] VITALS: BP 100/65
[2019-01-05] MEDS: DOXEPIN 10 MG CAP PO SCH (21:39)
[2019-01-06 06:43] VITALS: BP 121/82
[2019-01-06 07:52] LABS: HEMOGLOBIN A1c 5.2 %
[2019-01-06 07:55] LABS: CHOLESTEROL RISK RATIO 2.925 (<5)
[2019-01-06] MEDS: BENZTROPINE 1 MG TAB PO SCH ×2 (08:45→20:19)
[2019-01-06] MEDS: CitaloPRAM (CeleXA) 20 MG TAB PO SCH (08:45)
[2019-01-06] MEDS: OLANZapine 5 MG TAB PO SCH ×3 (08:45→20:19)
[2019-01-06] MEDS: IBUPROFEN 800 MG TAB PO PRN ×2 (08:47→20:20)
--- NOTE | 2019-01-06 12:16 | MHIPNPDOC ---
[facility] Progress Note Progress Note DATE OF SERVICE: 01/06/19 HISTORY: See HPI. Interval history: Patient states he does not know if he will be safe if he leaves the unit and decompensate, states he needs more time for medications "to work". States that he is tolerating the medications without side effects and that he is feeling more stable. States he slept better last night and did not have the usual "flashback". He is medication and compliant but attends few groups, because he states "they are all art class". Says that he will make an effort to attend more groups. Currently denies SI/HI, AVH, darin. Appetite is "okay". VITAL SIGNS: See below. NEW TEST RESULTS: See below, Hba1c 5.2%, lipid panel unremarkable apart from LDL of 109 mg/dl CURRENT MEDICATIONS: See below. MENTAL STATUS EXAMINATION: General Appearance: unkempt, does/not appear stated age (older), hospital scrubs/clothing, has R foot in posterior splint. Build: thin Demeanor: average Eye Contact: fair Activity: less anxious, less irritable Behavior: cooperative Speech: clear, spontaneous, reg/rate,rhythm,volume Mood: less anxious Mood "getting there" Affect: congruent, mild anxiety Thought Process: logical/linear, intact Thought Content (Delusions): none reported, denies SI, AVH, today denies HI Thought Content (Other): other (worrisome/anxious thoughts) Thought Content (Aggressive): none reported, other Perception (Hallucinations): none reported Perception (Other): none reported Cognition (Impairment of): none reported Cognition(Intelligence Est.): borderline Oriented: Awake, Alert, Oriented times three Judgment: Fair Psychosis: Denies DIAGNOSES: 1. Bipolar disorder I, mixed w/o psychosis per hx 2. Alcohol use disorder, chronic, severe 3. Tobacco use disorder 4. R/O Narcissistic vs antisocial personality traits ASSESSMENT: Patient's mood continues to improve and he says medications including zyprexa are helping with irritability/mood lability. Reports improvement in flashbacks, but we discussed how he primarily needs therapy with his medications. States he does feel listened to by his therapist. Discussed with patient and social work that he can possibly be switched to a different therapist. Denies SI/HI/AVH, but he says that he wants to be stable to avoid decompensating once discharged. Will continue to monitor for safety, medication side effects. MANAGEMENT PLAN: continue plan Medications: continue celexa 20mg daily continue doxepin 10mg qhs continue zyprexa 5mg tid continue vistaril 50mg q6hr prn anxiety TIME SPENT: 25 minutes. Vital Signs Vital Signs Date Time Temp Pulse Resp B/P (MAP) Pulse Ox O2 Delivery O2 Flow Rate FiO2 01/06/19 06:43 97.6 85 12 121/82 (95) 01/05/19 18:00 95 01/02/19 14:05 Room Air Laboratory Data 24H Labs Laboratory Tests 2 01/06/19 06:58: Estimated Mean Plasma Glucose 103, Hemoglobin A1c 5.2, Triglycerides Level 98, LDL Cholesterol 109H, Total Cholesterol 196, Non-HDL Cholesterol (LDL + VLDL) 129, Total HDL Cholesterol 67, Cholesterol/HDL Ratio 2.925 Current Medications Current Medications Acetaminophen (Tylenol Tab) 650 mg Q6HP PRN PO HEADACHE or DISCOMFORT; Start 01/02/19 at 13:45 Al Hydrox/Mg Hydrox/Simethicone (Mylanta) 30 ml Q4HP PRN PO HEARTBURN/INDIGESTION; Start 01/02/19 at 13:45 Benztropine Mesylate (Cogentin) 1 mg BID PO Last administered on 01/06/19at 08:45; Start 01/02/19 at 21:00 Citalopram Hydrobromide (CeleXA) 20 mg DAILY PO Last administered on 01/06/19at 08:45; Start 01/03/19 at 09:00 Doxepin HCl (SINEquan) 10 mg QHS PO Last administered on 01/05/19at 21:39; Start 01/02/19 at 21:00 Home Med (Med Rec Complete!) ASDIRECTED XX ; Start 01/02/19 at 09:00; Stop 01/02/19 at 09:00; Status DC Hydroxyzine HCl (Atarax) 50 mg Q6HP PRN PO ANXIETY/AGITATION; Start 01/03/19 at 11:00 Ibuprofen (Advil) 800 mg Q8HP PRN PO MODERATE PAIN (PS 5-7) Last administered on 01/06/19at 08:47; Start 01/02/19 at 18:45 Magnesium Hydroxide (Milk Of Magnesia) 30 ml DAILYPRN PRN PO CONSTIPATION; Start 01/02/19 at 13:45 Olanzapine (ZyPREXA) 5 mg DAILY PO Last administered on 01/03/19at 09:07; Start 01/03/19 at 09:00; Stop 01/03/19 at 10:47; Status DC Olanzapine (ZyPREXA) 5 mg TID PO Last administered on 01/06/19at 08:45; Start 01/03/19 at 16:00 Allergies Coded Allergies: morphine (Verified Adverse Reaction, Intermediate, n/v, 01/01/19) SHEREE SANTILLAN PGY-1 Jan 06, 2019 12:16
[2019-01-06 18:26] VITALS: BP 121/81
[2019-01-06] MEDS: DOXEPIN 10 MG CAP PO SCH (20:19)
[2019-01-07 06:42] VITALS: BP 124/80
[2019-01-07] MEDS: OLANZapine 5 MG TAB PO SCH (08:17)
[2019-01-07] MEDS: IBUPROFEN 800 MG TAB PO PRN (08:17)
[2019-01-07] MEDS: CitaloPRAM (CeleXA) 20 MG TAB PO SCH (08:17)
[2019-01-07] MEDS: BENZTROPINE 1 MG TAB PO SCH (08:17)
[2019-01-07] MEDS ORDERED: NALTREXONE 50 MG TAB PO SCH (09:45)
[2019-01-07] MEDS ORDERED: NALT50TA4 PO (11:47)
[2019-01-07] MEDS ORDERED: OLAN5TAB PO (11:47)
[2019-01-07] MEDS ORDERED: DOXE10CA PO (11:47)
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
== END 2019-01-07 13:35 | disposition home or self-care (01) | DRG 753 ==
LOC: M ED 17:47 → M ED INP 01-02 13:39 → M PSY 01-02 14:30
PROVIDERS: ADMIT Psychiatry & Neurology Psychiatry; ATTEND Psychiatry & Neurology Psychiatry
DX: F31.60 Bipolar disorder, current episode mixed, unspecified (principal); F60.89 Other specific personality disorders; F10.20 Alcohol dependence, uncomplicated; F17.200 Nicotine dependence, unspecified, uncomplicated; Z79.899 Other long term (current) drug therapy; Z88.5 Allergy status to narcotic agent; I25.2 Old myocardial infarction

== ENCOUNTER 2019-05-31 14:45 | Inpatient (IN) | payer MEDICAID, OTHER ==
[~2019-05-31] VITALS: Ht 175.3 cm; Wt 69.3 kg
[~2019-05-31 14:45] MED LIST changes: +HYDR1TAB33 PO; -HYDRO50TAB PO; +NALT50TA4 PO; -OMEP20CA3 PO; +OMEP20CA4 PO; +TRAZ1TAB10 PO; -TRAZO50TA PO
[2019-05-31 16:18] LABS: HEMATOCRIT 39.8 % (42.0-52.0); HEMOGLOBIN 13.8 g/dl (13.5-17.5); MEAN CORPUSCULAR HEMOGLOBIN 32.8 pg (27.0-33.0); MEAN CORPUSCULAR HGB CONC 34.7 g/dl (32.0-36.5); MEAN CORPUSCULAR VOLUME 94.5 fl (80.0-96.0); PLATELET COUNT, AUTOMATED 291 10^3/uL (150-450); RED BLOOD COUNT 4.21 10^6/uL (4.30-6.10); WHITE BLOOD COUNT 8.5 10^3/uL (4.0-10.0)
[2019-05-31 16:32] LABS: AMPHETAMINES LEVEL URINE NEGATIVE (NEGATIVE); BARBITURATES URINE NEGATIVE (NEGATIVE); BENZODIAZEPINES URINE NEGATIVE (NEGATIVE); CANNABINOIDS URINE NEGATIVE (NEGATIVE); COCAINE METABOLITE URINE NEGATIVE (NEGATIVE); METHADONE URINE NEGATIVE (NEGATIVE); OPIATES URINE NEGATIVE (NEGATIVE); PHENCYCLIDINE URINE NEGATIVE (NEGATIVE)
[2019-05-31 16:45] LABS: ACETAMINOPHEN LEVEL < 2.0 UG/ML (10.0-30.0); ALBUMIN 3.9 GM/DL (3.2-5.2); ALT/SGPT 22 U/L (12-78); BILIRUBIN,DIRECT < 0.1 MG/DL (0.0-0.2); BILIRUBIN,TOTAL 0.3 MG/DL (0.2-1.0); BLOOD UREA NITROGEN 9 MG/DL (7-18); CALCIUM LEVEL 8.9 MG/DL (8.5-10.1); CARBON DIOXIDE LEVEL 29 MEQ/L (21-32); CHLORIDE LEVEL 107 MEQ/L (98-107); CREATININE FOR GFR 1.25 MG/DL (0.70-1.30); ETHYL ALCOHOL (ETHANOL) 0.037 % (0.000-0.010); GLOMERULAR FILTRATION RATE > 60.0 (>56); GLUCOSE, FASTING 66 MG/DL (70-100); POTASSIUM SERUM 3.4 MEQ/L (3.5-5.1); SALICYLATE LEVEL 2.2 MG/DL (5.0-30.0); SODIUM LEVEL 141 MEQ/L (136-145); TOTAL PROTEIN 7.1 GM/DL (6.4-8.2)
--- NOTE | 2019-05-31 20:43 | ECGEPIP ---
[facility] - ED Test Date: 2019-05-31 Pat Name: RENE PADILLA Department: Room: - Gender: Male Credit Assistant: ANKIT : 1965 Requested By: Jovana Castro [facility] Order Number: [id number] Reading MD: Ana Rosa Knowles Measurements Intervals [place] Rate: 64 P: -16 DC: 142 QRS: 83 QRSD: 92 T: 76 QT: 400 QTc: 415 Interpretive Statements SINUS RHYTHM EARY REPOLARIZATION DECREASED RATE 08/25/18 Electronically Signed on 05-31-2019 20:43:20 EDT by Ana Rosa Knowles
[2019-06-01] MEDS ORDERED: IBUPROFEN 400 MG TAB PO PRN (17:15)
[2019-06-01] MEDS ORDERED: MOM 30ML SUSPENSION UDC PO PRN (17:15)
[2019-06-01] MEDS ORDERED: NICOTINE 21MG/24HR 1 EA TRANSDERMAL TD PRN (17:15)
[2019-06-01] MEDS ORDERED: LORazepam 2 MG TAB PO PRN (17:15)
[2019-06-01] MEDS ORDERED: MAALOX 30 ML SUSP *UDC PO PRN (17:15)
[2019-06-01 17:51] VITALS: BP 116/78
[2019-06-01] MEDS: MULTIVITAMINS/MINERALS THERAP 1 TAB PO SCH (18:11)
[2019-06-01] MEDS: FOLIC ACID 1 MG TAB PO SCH (18:11)
[2019-06-01] MEDS: PRAZOSIN 1 MG CAP PO SCH (20:24)
[2019-06-01] MEDS: THIAMINE 100 MG TAB PO SCH (20:24)
[2019-06-01] MEDS ORDERED: traZODone 50 MG TAB PO SCH (21:00)
[2019-06-01] MEDS ORDERED: risperiDONE 1 MG TAB PO SCH (21:00)
[2019-06-02 07:00] VITALS: BP 85/52
[2019-06-02] MEDS: THIAMINE 100 MG TAB PO SCH ×2 (09:31→21:47)
[2019-06-02] MEDS: FOLIC ACID 1 MG TAB PO SCH (09:31)
[2019-06-02] MEDS: MULTIVITAMINS/MINERALS THERAP 1 TAB PO SCH (09:31)
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
[2019-06-02] MEDS ORDERED: hydrOXYzine 50 MG TAB PO PRN (13:15)
[2019-06-02] MEDS ORDERED: CitaloPRAM (CeleXA) 20 MG TAB PO ONE (13:30)
--- NOTE | 2019-06-02 14:09 | HPEPDOC ---
General Date of Admission Jun 01, 2019 at 17:35 Date of Service: Jun 02, 2019 Chief Complaint The patient is a 54-year-old male admitted with a reason for visit of Unspecified Depressive D/O. Source: Patient, Old records History of Present Illness 54 year old male with history of Bipolar disorder, depression type b personality straits, alcohol abuse disorder, pancreatitis, smoker, CAD s/p AMIs in the past not on any meds left ankle and calcaneal fracture in december 2018 walking with a limp was admitted to [facility] for depression with suicidal ideas with a plan. I am seeing the patient now for medical history and physical. Today he complained of left ankle pain and pain in the left jaramillo about 4/10 in intensity gets worse when he walks for longer distances , dull throbbing in nature with some intermittent swelling around the left ankle without any radiation. Otherwise he does not have any complaints. Home Medications No Active Prescriptions or Reported Meds Allergies Coded Allergies: morphine (Verified Adverse Reaction, Intermediate, n/v, 01/01/19) Past Medical History Medical History Coronary artery disease, history of myocardial infarction in 1988 and 1993, chronic back pain, chronic knee pain, depression, asbestos exposure, history of pancreatitis, history of alcohol abuse, food impaction requiring an esophagogastroduodenoscopy (EGD) last year. Left calcaneus and left ankle fracture in december 2018 Surgical History Incisional hernia times two. Cholecystectomy. EGD. Family History Father of unknown causes. Mother in her 60s of unknown causes. Has children up here who are healthy. Social History * Smoker: current smoker Alcohol: heavy Drugs: denies Smokes one to two packs of cigarettes a day. Greater than 30 cans of beer a day. A-FIB/CHADSVASC A-FIB History Current/History of A-Fib/PAF?: No Review of Systems Constitutional: Denies: Chills, Fever, Night Sweats Eyes: Denies: Pain, Vision change ENT: Denies: Head Aches, Ear Pain, Dysphagia Skin: Denies: Rash, Lesions, Breakdown Pulmonary: Denies: Dyspnea, Cough Cardiovascular: Denies: Chest Pain, Palpitations, Orthopnea, Paroxysmal Noc. Dyspnea, Lt Headedness Gastrointestinal: Denies: Nausea, Vomiting, Abdominal Pain, Diarrhea Genitourinary: Denies: Dysuria, Frequency, Incontinence, Retention Hematologic: Denies: Bruising, Bleeding Excessively Musculoskeletal: Reports: Leg Pain, Joint Pain Neurological: Denies: Weakness, Numbness, Change in speech, Confusion Physical Examination General Exam: Positive: Alert, Cooperative, No Acute Distress Eye Exam: Positive: PERRLA, Conjunctiva & lids normal, EOMI; Negative: Sclera icteric ENT Exam: Positive: Atraumatic, Mucous membr. moist/pink, Pharynx Normal Neck Exam: Positive: Supple; Negative: JVD, thyromegaly Chest Exam: Positive: Clear to auscultation, Normal air movement Heart Exam: Positive: Rate Normal, Regular Rhythm, Normal S1, Normal S2; Negative: Murmurs, Rubs Abdomen Exam: Positive: Normal bowel sounds, Soft; Negative: Tenderness, Hepatospenomegaly Extremity Exam: Negative: Clubbing, Cyanosis, Edema Skin Exam: Positive: Nl turgor and temperature; Negative: Breakdown, Lesion Psych Exam: Positive: Memory Intact, Oriented x 3 Vital Signs Vital Signs Date Time Temp Pulse Resp B/P (MAP) Pulse Ox O2 Delivery O2 Flow Rate FiO2 06/02/19 07:00 98.7 77 14 85/52 (63) 06/01/19 17:51 95 06/01/19 15:40 Room Air Assessment/Plan 54 year old male with history of Bipolar disorder, depression type b personality straits, alcohol abuse disorder, pancreatitis, smoker, CAD s/p AMIs in the past not on any meds left ankle and calcaneal fracture in december 2018 walking with a limp was admitted to [facility] for depression with suicidal ideas with a plan. Depression with suicidal ideas: management as per Psychiatry Coronary artery disease, asymptomatic. Currently on no medications for this. History of pancreatitis. His recent lab work was unremarkable. Alcoholism. Treatment as per inpatient mental health unit. Tobacco abuse. The importance of smoking cessation was discussed, particularly with his history of coronary artery disease. Plan / VTE VTE Prophylaxis Ordered?: No (freely ambulatory) HUSEYIN STONER MD Jun 02, 2019 13:14
[2019-06-02] MEDS ORDERED: OLANZapine 5 MG TAB PO SCH ×2 (16:00→21:00)
[2019-06-02] MEDS: OLANZapine 5 MG TAB PO SCH (16:49)
[2019-06-02 18:00] VITALS: BP 97/63
[2019-06-02] MEDS: OLANZapine 10 MG TAB PO SCH (21:46)
[2019-06-02] MEDS: PRAZOSIN 1 MG CAP PO SCH (21:46)
[2019-06-02] MEDS: DOXEPIN 10 MG CAP PO SCH (21:47)
[2019-06-03 06:45] VITALS: BP 90/50
[2019-06-03 06:46] VITALS: BP 90/50
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
[2019-06-03] MEDS: THIAMINE 100 MG TAB PO SCH ×2 (10:59→20:15)
[2019-06-03] MEDS: FOLIC ACID 1 MG TAB PO SCH (10:59)
[2019-06-03] MEDS: MULTIVITAMINS/MINERALS THERAP 1 TAB PO SCH (10:59)
[2019-06-03] MEDS: CitaloPRAM (CeleXA) 20 MG TAB PO SCH (10:59)
[2019-06-03] MEDS: OLANZapine 5 MG TAB PO SCH ×2 (10:59→17:23)
[2019-06-03 14:35] VITALS: BP 120/61
[2019-06-03] MEDS: PRAZOSIN 1 MG CAP PO SCH (20:15)
[2019-06-03] MEDS: DOXEPIN 10 MG CAP PO SCH (20:15)
[2019-06-03] MEDS: OLANZapine 10 MG TAB PO SCH (20:15)
[2019-06-04 06:44] VITALS: BP 102/63
[2019-06-04] MEDS: THIAMINE 100 MG TAB PO SCH (08:15)
[2019-06-04] MEDS: FOLIC ACID 1 MG TAB PO SCH (08:15)
[2019-06-04] MEDS: CitaloPRAM (CeleXA) 20 MG TAB PO SCH (08:15)
[2019-06-04] MEDS: MULTIVITAMINS/MINERALS THERAP 1 TAB PO SCH (08:15)
[2019-06-04] MEDS: OLANZapine 5 MG TAB PO SCH ×2 (08:15→16:24)
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
[2019-06-04 18:00] VITALS: BP 115/76
[2019-06-04] MEDS: DOXEPIN 10 MG CAP PO SCH (21:18)
[2019-06-04] MEDS: PRAZOSIN 1 MG CAP PO SCH (21:18)
[2019-06-04] MEDS: OLANZapine 10 MG TAB PO SCH (21:18)
[2019-06-05 06:35] VITALS: BP 97/62
[2019-06-05] MEDS: MULTIVITAMINS/MINERALS THERAP 1 TAB PO SCH (08:04)
[2019-06-05] MEDS: CitaloPRAM (CeleXA) 20 MG TAB PO SCH (08:04)
[2019-06-05] MEDS: FOLIC ACID 1 MG TAB PO SCH (08:04)
[2019-06-05] MEDS: OLANZapine 5 MG TAB PO SCH ×2 (08:04→16:33)
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
[2019-06-05 18:00] VITALS: BP 101/58
[2019-06-05] MEDS: OLANZapine 10 MG TAB PO SCH (20:58)
[2019-06-05] MEDS: DOXEPIN 10 MG CAP PO SCH (20:58)
[2019-06-05] MEDS: PRAZOSIN 1 MG CAP PO SCH (20:58)
[2019-06-06 06:41] VITALS: BP 96/56
[2019-06-06] MEDS: FOLIC ACID 1 MG TAB PO SCH (08:31)
[2019-06-06] MEDS: MULTIVITAMINS/MINERALS THERAP 1 TAB PO SCH (08:31)
[2019-06-06] MEDS: CitaloPRAM (CeleXA) 20 MG TAB PO SCH (08:31)
[2019-06-06] MEDS: OLANZapine 5 MG TAB PO SCH ×2 (08:31→15:53)
[2019-06-06 16:19] VITALS: BP 106/57
[2019-06-06] MEDS: DOXEPIN 10 MG CAP PO SCH (22:20)
[2019-06-06] MEDS: OLANZapine 10 MG TAB PO SCH (22:20)
[2019-06-06] MEDS: PRAZOSIN 1 MG CAP PO SCH (22:20)
[2019-06-07 06:45] VITALS: BP 118/62
[2019-06-07] MEDS: FOLIC ACID 1 MG TAB PO SCH (09:01)
[2019-06-07] MEDS: MULTIVITAMINS/MINERALS THERAP 1 TAB PO SCH (09:01)
[2019-06-07] MEDS: OLANZapine 5 MG TAB PO SCH ×2 (09:01→15:36)
[2019-06-07] MEDS: CitaloPRAM (CeleXA) 20 MG TAB PO SCH (09:01)
[2019-06-07 16:03] VITALS: BP 107/56
[2019-06-07] MEDS: PRAZOSIN 1 MG CAP PO SCH (20:45)
[2019-06-07] MEDS: OLANZapine 10 MG TAB PO SCH (20:45)
[2019-06-07] MEDS: DOXEPIN 10 MG CAP PO SCH (20:45)
[2019-06-08 06:37] VITALS: BP 90/59
[2019-06-08] MEDS: CitaloPRAM (CeleXA) 20 MG TAB PO SCH (08:04)
[2019-06-08] MEDS: MULTIVITAMINS/MINERALS THERAP 1 TAB PO SCH (08:04)
[2019-06-08] MEDS: FOLIC ACID 1 MG TAB PO SCH (08:04)
[2019-06-08] MEDS: OLANZapine 5 MG TAB PO SCH ×2 (08:04→15:30)
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
[2019-06-08 16:43] VITALS: BP 96/57
[2019-06-08] MEDS: DOXEPIN 10 MG CAP PO SCH (20:27)
[2019-06-08] MEDS: PRAZOSIN 1 MG CAP PO SCH (20:27)
[2019-06-08] MEDS: OLANZapine 10 MG TAB PO SCH (20:27)
[2019-06-09 07:08] VITALS: BP 98/62
[2019-06-09] MEDS: FOLIC ACID 1 MG TAB PO SCH (08:22)
[2019-06-09] MEDS: OLANZapine 5 MG TAB PO SCH ×2 (08:22→15:23)
[2019-06-09] MEDS: CitaloPRAM (CeleXA) 20 MG TAB PO SCH (08:22)
[2019-06-09] MEDS: MULTIVITAMINS/MINERALS THERAP 1 TAB PO SCH (08:22)
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
[2019-06-09 16:47] VITALS: BP 119/85
[2019-06-09 21:49] VITALS: BP 119/85
[2019-06-09] MEDS: DOXEPIN 10 MG CAP PO SCH (21:49)
[2019-06-09] MEDS: PRAZOSIN 1 MG CAP PO SCH (21:49)
[2019-06-09] MEDS: OLANZapine 10 MG TAB PO SCH (21:49)
[2019-06-10 06:33] VITALS: BP 96/61
[2019-06-10] MEDS: CitaloPRAM (CeleXA) 20 MG TAB PO SCH (08:14)
[2019-06-10] MEDS: OLANZapine 5 MG TAB PO SCH (08:14)
[2019-06-10] MEDS: MULTIVITAMINS/MINERALS THERAP 1 TAB PO SCH (08:14)
[2019-06-10] MEDS: FOLIC ACID 1 MG TAB PO SCH (08:14)
[2019-06-10] MEDS ORDERED: MINI1CAP PO (08:41)
[2019-06-10] MEDS ORDERED: HYDR50TA70 PO (08:41)
[2019-06-10] MEDS ORDERED: DOXE10CA PO (08:41)
[2019-06-10] MEDS ORDERED: ZYPR10TA PO (08:41)
[2019-06-10] MEDS ORDERED: CELE20TA PO (08:41)
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
== END 2019-06-10 10:22 | disposition home or self-care (01) | DRG 753 ==
LOC: M ED 14:45 → M PSY 06-01 17:35
PROVIDERS: ADMIT Psychiatry & Neurology Psychiatry; ATTEND Psychiatry & Neurology Psychiatry
DX: F31.5 Bipolar disorder, current episode depressed, severe, with psychotic features (principal); F17.210 Nicotine dependence, cigarettes, uncomplicated; F10.10 Alcohol abuse, uncomplicated; Z88.8 Allergy status to other drugs, medicaments and biological substances; Z87.19 Personal history of other diseases of the digestive system; F60.89 Other specific personality disorders; I25.10 Atherosclerotic heart disease of native coronary artery without angina pectoris; I25.2 Old myocardial infarction; Z77.090 Contact with and (suspected) exposure to asbestos; M25.569 Pain in unspecified knee; M54.9 Dorsalgia, unspecified; Z79.899 Other long term (current) drug therapy

== ENCOUNTER 2019-10-27 21:17 | Inpatient (IN) | payer MEDICAID, OTHER ==
[~2019-10-27] VITALS: Ht 172.7 cm; Wt 62.0 kg
[~2019-10-27 21:17] MED LIST changes: +HYDR50TA70 PO; +MINI1CAP PO; +OMEP1CAP73 PO; -OMEP20CA4 PO; +QUET100T2 PO; -QUET1TAB8 PO; -TRAZ-163 PO; +TRAZ-257 PO; +ZYPR10TA PO
[2019-10-27 22:11] LABS: HEMATOCRIT 40.3 % (42.0-52.0); HEMOGLOBIN 13.8 g/dl (13.5-17.5); MEAN CORPUSCULAR HEMOGLOBIN 31.2 pg (27.0-33.0); MEAN CORPUSCULAR HGB CONC 34.2 g/dl (32.0-36.5); PLATELET COUNT, AUTOMATED 341 10^3/uL (150-450); RED BLOOD COUNT 4.43 10^6/uL (4.30-6.10); WHITE BLOOD COUNT 7.5 10^3/uL (4.0-10.0)
[2019-10-27 22:26] LABS: AMPHETAMINES LEVEL URINE NEGATIVE (NEGATIVE); BARBITURATES URINE NEGATIVE (NEGATIVE); BENZODIAZEPINES URINE NEGATIVE (NEGATIVE); CANNABINOIDS URINE NEGATIVE (NEGATIVE); COCAINE METABOLITE URINE NEGATIVE (NEGATIVE); METHADONE URINE NEGATIVE (NEGATIVE); OPIATES URINE NEGATIVE (NEGATIVE); PHENCYCLIDINE URINE NEGATIVE (NEGATIVE)
[2019-10-27 22:47] LABS: ACETAMINOPHEN LEVEL < 2.0 UG/ML (10.0-30.0); ALBUMIN 3.8 GM/DL (3.2-5.2); ALT/SGPT 26 U/L (12-78); BILIRUBIN,DIRECT 0.1 MG/DL (0.0-0.2); BILIRUBIN,TOTAL 0.2 MG/DL (0.2-1.0); BLOOD UREA NITROGEN 9 MG/DL (7-18); CALCIUM LEVEL 8.2 MG/DL (8.5-10.1); CARBON DIOXIDE LEVEL 24 MEQ/L (21-32); CHLORIDE LEVEL 107 MEQ/L (98-107); CREATININE FOR GFR 0.95 MG/DL (0.70-1.30); ETHYL ALCOHOL (ETHANOL) 0.205 % (0.000-0.010); GLOMERULAR FILTRATION RATE > 60.0 (>56); GLUCOSE, FASTING 87 MG/DL (70-100); POTASSIUM SERUM 3.5 MEQ/L (3.5-5.1); SALICYLATE LEVEL 2.4 MG/DL (5.0-30.0); SODIUM LEVEL 141 MEQ/L (136-145)
[2019-10-28] MEDS ORDERED: MOM 30ML SUSPENSION UDC PO PRN (04:15)
[2019-10-28] MEDS ORDERED: traZODone 50 MG TAB PO PRN (04:15)
[2019-10-28] MEDS ORDERED: OLANZapine ORAL DISINTEGRATING TAB 5MG PO PRN (04:15)
[2019-10-28] MEDS ORDERED: ACETAMINOPHEN TAB 650MG DOSE (2X325MG) PO PRN (04:15)
[2019-10-28] MEDS ORDERED: MAALOX 30 ML SUSP *UDC PO PRN (04:15)
[2019-10-28 05:17] VITALS: BP 115/68
[2019-10-28] MEDS ORDERED: LORazepam 2 MG TAB PO PRN (05:30)
[2019-10-28 06:00] VITALS: BP 115/68
[2019-10-28] MEDS: MULTIVITAMINS/MINERALS THERAP 1 TAB PO SCH (08:39)
[2019-10-28] MEDS: THIAMINE 100 MG TAB PO SCH ×2 (08:39→21:00)
[2019-10-28] MEDS: FOLIC ACID 1 MG TAB PO SCH (08:39)
[2019-10-28] MEDS: NICOTINE 21MG/24HR 1 EA TRANSDERMAL TD SCH (09:00)
--- NOTE | 2019-10-28 11:48 | MHHPEPDOC ---
[facility] History & Physical History and Physical DATE OF ADMISSION: Oct 28, 2019 at 05:07 New Patient Maurice Almodovar MRN: N/A Date of : N/A Date of Service: 10/28/2019 Chief Complaint "I guess I was pretty drunk." History of Present Illness The patient, a 54-year-old man, with a well-known history of alcoholism presents after becoming extremely intoxicated stating that he's suicidal. He was admitted out of an abundance of caution. The patient was met with where he reported that he was quite intoxicated at the time having argued with various family members. He reported that his depression had improved as he had sobered up. He reports that [place] poorly up here due to contentious relationships and other difficulties. He in the past has had a history of reported auditory hallucinations, but denies those at this time. The patient reports that he is uninterested in outpatient addiction treatment and would like to be discharged. Review Of Systems Depression: As above. Anxiety: No changes from last admission. Bernice: No changes from last admission. Psychotic: As above. Trauma: No changes. Borderline: Not screened. Past Psychiatric History The patient has a history of multiple inpatient admissions and his last admission was in July 2019. Has a history of suicide attempts, last in 2007 episode." Currently follows up at [facility]. Had been previously on Zyprexa, Celexa, naltrexone, doxepin, but [place] he has not f ollowed up with any , reportedly diagnosed with bipolar disorder. Allergies Please see below. Family Psychiatric History The patient denies/is unaware any history of mental health history including addictions and suicide. Social History [place] He was part of the 06/03 [employer] department. Currently lives alone in [place], occasionally lives with g irlfriend in the local area which he's had many. He was unable to graduate high school, dropped out, disability related to back injury, reported primarily by friends, no significant legal trouble at this time. He is currently . Substance Abuse History Has a reported history of significant alcohol use and has multiple times severely intoxicated. He smokes tobacco of "as much as I can get." Medical History Has a reported history of lung cancer after asbestos exposure. Mental Status Examination General: Fair hygiene Speech: Spontaneous and fluid Thought processes: Linear and logical MSK: Smooth and coordinated gait, no signs of tremors or involuntary orofacial movements Thought content: Future orientated Abstract reasoning, and computation: Intact Description of associations: Intact Description of abnormal or psychotic thoughts: Denies any suicidal or homicidal ideation. Denies any auditory or visual hallucinations. Does not appear to be responding to internal stimuli. Does not appear to be endorsing any bizarre or paranoid ideation. Judgment: Fair to poor Insight: Fair to poor, appears chronic Orientation: Alert and orientated 3 Cognition: Grossly normal Recent and remote memory: Intact Attention span and concentration: Intact Fund of knowledge: Adequate Mood: "okay" Affect: Euthymic with a full range Diagnoses Unspecified impulse/conduct disorder. Potentially antisocial versus substance induced, not clear at this time. Alcohol use disorder, severe. Tobacco use disorder, moderate. Assessment and Plan Unspecified impulse/conduct disorder: Discussed with patient various options including Zyprexa. However, patient is uninterested in restarting medications, but is open to having disulfiram prescribed when he leaves he has no psychotic symptoms and is highly unlikely to have bipolar disorder given, his extensive history of alcohol use it must be excluded before an official diagnosis of bipolar disorder can be made. Alcohol use disorder: Continue [facility] protocol. Tobacco use disorder: Offered nicotine replacement. Disposition The patient will be discharged tomorrow if he continues to demonstrate no concerning deation or other behaviors. Problem List 1. Risk for suicide. 2. Substance abuse. Initial Treatment Plan 1. Patient was admitted on a 9.39 legal status. 2. Complete history was obtained. 3. With patients permission, family will be contacted and database will be expanded. 4. Patients medication regimen will be reviewed and changed accordingly. 5. Patient will be provided with protected environment. 6. Patient will be treated with individual, group, and milieu therapies. 7. Patient will receive supportive psych-education. 8. Discharge planning will commence immediately. 9. Outpatient follow-up treatment will be strongly recommended. 10. The initial treatment plan will focus initially on: Estimated Length Of Stay 2 days. Time Spent 70 minutes. Saturday Vital Signs Vital Signs Date Time Temp Pulse Resp B/P (MAP) Pulse Ox O2 Delivery O2 Flow Rate FiO2 10/28/19 06:00 94 115/68 10/28/19 05:17 98.4 16 Room Air 10/28/19 04:34 93 Laboratory Data 24H Labs Laboratory Tests 2 10/27/19 21:45: Nucleated Red Blood Cells % (auto) 0.0, Anion Gap 10, Glomerular Filtration Rate > 60.0, Calcium Level 8.2L, Total Bilirubin 0.2, Direct Bilirubin 0.1, Aspartate Amino Transf (AST/SGOT) 13, Alanine Aminotransferase (ALT/SGPT) 26, Alkaline Phosphatase 67, Total Protein 7.0, Albumin 3.8, Albumin/Globulin Ratio 1.19, Thyroid Stimulating Hormone (TSH) 1.260, Salicylates Level 2.4L, Urine Opiates Screen NEGATIVE, Urine Methadone Screen NEGATIVE, Acetaminophen Level < 2.0L, Urine Barbiturates Screen NEGATIVE, Urine Phencyclidine Screen NEGATIVE, Urine Amphetamines Screen NEGATIVE, Urine Benzodiazepines Screen NEGATIVE, Urine Cocaine Metabolite Screen NEGATIVE, Urine Cannabinoids Screen NEGATIVE, Ethyl Alcohol Level 0.205H CBC/BMP Laboratory Tests 10/27/19 21:45 Medications Scheduled Disulfiram (Disulfiram) 250 Mg Tablet, 1 TAB PO DAILY for alcohol Nicotine (Nicotine Patch) 21 Mg Patch.td24, 1 PATCH TD DAILY for tobacco Scheduled PRN Trazodone HCl (Trazodone HCl) 50 Mg Tablet, 50 MG PO QHSP PRN for INSOMNIA Allergies Coded Allergies: morphine (Verified Adverse Reaction, Intermediate, n/v, 01/01/19) KARTHIK LOPEZ DO Oct 28, 2019 11:48
[2019-10-28 16:29] VITALS: BP 108/60
[2019-10-28 23:14] VITALS: BP 126/71
[2019-10-28 23:16] VITALS: BP 126/71
[2019-10-29 06:05] VITALS: BP 113/74
[2019-10-29 06:19] VITALS: BP 113/74
[2019-10-29] MEDS: MULTIVITAMINS/MINERALS THERAP 1 TAB PO SCH (10:48)
[2019-10-29] MEDS: FOLIC ACID 1 MG TAB PO SCH (10:48)
[2019-10-29] MEDS: NICOTINE 21MG/24HR 1 EA TRANSDERMAL TD SCH (10:49)
[2019-10-29] MEDS ORDERED: NICO21PAT TD (10:49)
[2019-10-29] MEDS: THIAMINE 100 MG TAB PO SCH (10:49)
--- NOTE | 2019-10-29 10:49 | MHDSPDOC ---
[facility] Discharge Summary Discharge Summary DATE OF ADMISSION: Oct 28, 2019 at 05:07 DATE OF DISCHARGE: 10/29/19 Discharge Maurice Almodovar MRN: N/A Date of : N/A Date of Service: 10/29/2019 Diagnoses Unspecified impulse/conduct disorder. Potentially antisocial versus substance induced, not clear at this time. Alcohol use disorder, severe. Tobacco use disorder, moderate. History of Present Illness The patient, a 54-year-old man, with a well-known history of alcoholism presents after becoming extremely intoxicated stating that he's suicidal. He was admitted out of an abundance of caution. The patient was met with where he reported that he was quite intoxicated at the time having argued with various family members. He reported that his depression had improved as he had sobered up. He reports that he had [place] that he does poorly up here due to contentious relationships and other difficulties. He in the past has had a history of reported auditory hallucinations, but denies those at this time. The patient reports that he is uninterested in outpatient addiction treatment and would like to be discharged. Consultants Involved Hospitalist/PCP screening Treatment and Progress On The Unit Patient was admitted to the inpatient unit. He had denied any suicidal and homicidal ideation through his entire stay. He rapidly cleared from any depressive symptoms after he became sober. The patient was met with and discussed about potential for medication as he was not taking any. He was open to the idea of disulfiram/antabuse for his alcoholism and wanted a small supply of trazodone for sleep, but otherwise was uninterested in treatment. He did not have any behavioral problems attended groups intermittently and otherwise requested to leave shortly after presenting. Discharge Assessment 54-year-old male with severe alcoholism, presents reported suicidal statements while intoxicated. He is admitted out of an abundance of caution; however, he is uninterested in care at this time. On the day of discharge, he denies any suicidal or homicidal ideation throughout the entirety of the stay, has a normal mental status exam. He is calm and cooperative and demonstrates fair insight into the events that had brought him. He is open to some treatment for alcoholism in the form of disulfiram, but otherwise does not meet voluntary criteria for extension of this admission. He declines voluntary furtherance of his admission and thus will be discharging in good maya. Mental Status Examination General: Well dressed with good hygiene Speech: Spontaneous and fluid Thought processes: Linear and logical MSK: Smooth and coordinated gait, no signs of tremors or involuntary orofacial movements Thought content: Future orientated Abstract reasoning, and computation: Intact Description of associations: Intact Description of abnormal or psychotic thoughts: Denies any suicidal or homicidal ideation. Denies any auditory or visual hallucinations. Does not appear to be responding to internal stimuli. Does not appear to be endorsing any bizarre or paranoid ideation. Judgment: fair Insight: fair Orientation: Alert and orientated 3 Cognition: Grossly normal Recent and remote memory: Intact Attention span and concentration: Intact Fund of knowledge: Adequate Mood: "okay" Affect: Euthymic with a full range Follow Up The social work team worked during the predischarge meeting in order to evaluate for further issues of lethality address them fully before discharge. They worked on safety planning with the patient's family members in order to ensure that the patient will have a safe and effective discharge. Time Spent The amount of time spent in the coordination of care for this patient was approximately 40 minutes. Vital Signs/I&Os Vital Signs Date Time Temp Pulse Resp B/P (MAP) Pulse Ox O2 Delivery O2 Flow Rate FiO2 10/29/19 06:19 98.0 75 16 113/74 (87) 10/28/19 05:17 Room Air 10/28/19 04:34 93 Medications Scheduled Disulfiram (Disulfiram) 250 Mg Tablet, 1 TAB PO DAILY for alcohol for 30 Days, #30 Nicotine (Nicotine Patch) 21 Mg Patch.td24, 1 PATCH TD DAILY for tobacco for 30 Days, #30 Scheduled PRN Trazodone HCl (Trazodone HCl) 50 Mg Tablet, 50 MG PO QHSP PRN for INSOMNIA for 7 Days, #7 Allergies Coded Allergies: morphine (Verified Adverse Reaction, Intermediate, n/v, 01/01/19) KARTHIK LOPEZ DO Oct 29, 2019 10:49
[2019-10-29] MEDS ORDERED: TRAZ-252 PO (11:54)
[2019-10-29] MEDS ORDERED: DISU250T PO (11:54)
== END 2019-10-29 12:45 | disposition home or self-care (01) | DRG 758 ==
LOC: M ED 21:17 → M PSY 10-28 05:07
PROVIDERS: ADMIT Psychiatry & Neurology Psychiatry; ATTEND Psychiatry & Neurology Addiction Medicine
DX: F63.9 Impulse disorder, unspecified (principal); F91.9 Conduct disorder, unspecified; F17.200 Nicotine dependence, unspecified, uncomplicated; F10.10 Alcohol abuse, uncomplicated

== ENCOUNTER 2019-12-01 19:16 | Emergency (ER) | payer MEDICAID, OTHER ==
[~2019-12-01] VITALS: Ht 172.7 cm; Wt 62.3 kg
[~2019-12-01 19:16] MED LIST changes: +DISU250T PO; +NICO21PAT TD; +TRAZ-252 PO
[2019-12-01] MEDS ORDERED: dexameTHASONE 20 MG/5 ML VIAL (J1100) IV ONE (20:30)
[2019-12-01] MEDS ORDERED: IPRATROPIUM 0.5MG/ALBUTEROL 2.5MG INH SOL UD 3ML (DUONEB)(J7620) NEB ONE (20:30)
[2019-12-01 21:29] LABS: INFLUENZA A AMPLIFICATION NEGATIVE (NEGATIVE); INFLUENZA B AMPLIFICATION NEGATIVE (NEGATIVE)
[2019-12-01] MEDS ORDERED: PRED20TA PO (21:41)
[2019-12-01 21:45] VITALS: BP 96/56
[2019-12-01] MEDS ORDERED: KETOROLAC 60 MG/2 ML VIAL (J1885) IM ONE (21:45)
--- NOTE | 2019-12-02 03:29 | REP ---
Clinical: Left ankle pain. Technique: AP and lateral views of the left ankle. Findings: Lateral swelling is appreciated along with suspected bony fragments from old lateral malleolus fracture. Underlying osteopenia and age-related degenerative changes are suggested. Lateral view demonstrates small calcaneal heal spur. No obvious acute fracture or dislocation identified. Impression: Lateral swelling and evidence for old injury. Electronically Signed by Isaias Moser MD 12/02/2019 03:20 A
--- NOTE | 2019-12-02 03:31 | REP ---
Clinical: Dyspnea. Technique: PA and lateral. Comparison: 08/25/2018. Findings: Mediastinum and cardiac silhouette are normal. Lung mason demonstrate mild chronic-appearing changes including subtle apical scarring. No consolidation, effusion, or pneumothorax. Skeletal structures intact. Impression: No acute consolidation. Electronically Signed by Isaias Moser MD 12/02/2019 03:23 A
--- NOTE | 2019-12-02 20:52 | ECGEPIP ---
[facility] - ED Test Date: 2019-12-01 Pat Name: RENE PADILLA Department: Room: - Gender: Male Chro: DENISE : 1965 Requested By: RAISA SAMAYOA Order Number: [id number] Reading MD: Ana Rosa Knowles Measurements Intervals [place] Rate: 73 P: 60 AR: 171 QRS: 71 QRSD: 92 T: 57 QT: 369 QTc: 409 Interpretive Statements SINUS RHYTHM INCREASED RATE 05/31/17 Electronically Signed on 12-02-2019 20:51:55 EDT by Ana Rosa Knowles
== END 2019-12-01 22:06 | disposition home or self-care (01) ==
LOC: M ED 19:16
DX: J44.1 Chronic obstructive pulmonary disease with (acute) exacerbation (principal); S93.402A Sprain of unspecified ligament of left ankle, initial encounter; X50.0XXA Overexertion from strenuous movement or load, initial encounter; Y92.019 Unspecified place in single-family (private) house as the place of occurrence of the external cause; I25.10 Atherosclerotic heart disease of native coronary artery without angina pectoris; F10.20 Alcohol dependence, uncomplicated; Z85.118 Personal history of other malignant neoplasm of bronchus and lung; F17.210 Nicotine dependence, cigarettes, uncomplicated; Z88.5 Allergy status to narcotic agent; Z79.899 Other long term (current) drug therapy
CPT/HCPCS: 71046; 73600; 87502; 93005; 94640; 96372; 96374; 99285; J1100

== ENCOUNTER 2019-12-28 21:33 | Emergency (ER) | payer OTHER ==
[~2019-12-28] VITALS: Ht 175.3 cm; Wt 63.6 kg
[~2019-12-28 21:33] MED LIST changes: +PRED20TA PO
[2019-12-28 21:53] VITALS: BP 133/84
[2019-12-28 22:10] LABS: HEMATOCRIT 40.4 % (42.0-52.0); MEAN CORPUSCULAR HEMOGLOBIN 32.4 pg (27.0-33.0); MEAN CORPUSCULAR HGB CONC 34.7 g/dl (32.0-36.5); MEAN CORPUSCULAR VOLUME 93.5 fl (80.0-96.0); PLATELET COUNT, AUTOMATED 259 10^3/uL (150-450); RED BLOOD COUNT 4.32 10^6/uL (4.30-6.10); WHITE BLOOD COUNT 9.2 10^3/uL (4.0-10.0)
[2019-12-28] MEDS ORDERED: CITA20TA6 PO (22:22)
[2019-12-28] MEDS ORDERED: PRAZ1CAP PO (22:22)
[2019-12-28] MEDS ORDERED: OLAN5TAB PO (22:22)
[2019-12-28 22:43] LABS: AMPHETAMINES LEVEL URINE NEGATIVE (NEGATIVE); BARBITURATES URINE NEGATIVE (NEGATIVE); BENZODIAZEPINES URINE NEGATIVE (NEGATIVE); CANNABINOIDS URINE NEGATIVE (NEGATIVE); COCAINE METABOLITE URINE NEGATIVE (NEGATIVE); METHADONE URINE NEGATIVE (NEGATIVE); OPIATES URINE NEGATIVE (NEGATIVE); PHENCYCLIDINE URINE NEGATIVE (NEGATIVE)
[2019-12-28 22:46] LABS: ACETAMINOPHEN LEVEL < 2.0 UG/ML (10.0-30.0); ALBUMIN 4.4 GM/DL (3.2-5.2); ALT/SGPT 44 U/L (12-78); BILIRUBIN,DIRECT 0.4 MG/DL (0.0-0.2); BILIRUBIN,TOTAL 1.2 MG/DL (0.2-1.0); BLOOD UREA NITROGEN 7 MG/DL (7-18); CARBON DIOXIDE LEVEL 25 MEQ/L (21-32); CHLORIDE LEVEL 100 MEQ/L (98-107); CREATININE FOR GFR 1.01 MG/DL (0.70-1.30); ETHYL ALCOHOL (ETHANOL) 0.026 % (0.000-0.010); GLOMERULAR FILTRATION RATE > 60.0 (>56); GLUCOSE, FASTING 91 MG/DL (70-100); POTASSIUM SERUM 3.3 MEQ/L (3.5-5.1); SALICYLATE LEVEL < 1.7 MG/DL (5.0-30.0); SODIUM LEVEL 134 MEQ/L (136-145); TOTAL PROTEIN 7.6 GM/DL (6.4-8.2)
== END 2019-12-29 00:47 | disposition home or self-care (01) ==
LOC: M ED 21:33
DX: F43.0 Acute stress reaction (principal); I25.10 Atherosclerotic heart disease of native coronary artery without angina pectoris; Z88.5 Allergy status to narcotic agent; Z79.899 Other long term (current) drug therapy; F17.210 Nicotine dependence, cigarettes, uncomplicated
CPT/HCPCS: 36415; 80048; 80076; 80307; 84443; 85027; 99281; G0480

== ENCOUNTER → 2020-01-04 | Outpatient (REF) | payer OTHER ==
[~2020-01-04] MED LIST changes: -ATOM40CA PO; +ATOM40CA16 PO; +CITA20TA6 PO; +PRAZ1CAP PO
[2020-01-04 17:26] LABS: BASO % 0.4 % (0.0-1.0); EOS # 0.1 10^3/uL (0.0-0.5); EOS % 1.9 % (0.0-3.0); HEMATOCRIT 40.7 % (42.0-52.0); HEMOGLOBIN 13.9 g/dl (13.5-17.5); LYMPH # 1.2 10^3/uL (1.5-5.0); LYMPH % 22.9 % (24.0-44.0); MEAN CORPUSCULAR HEMOGLOBIN 33.3 pg (27.0-33.0); MEAN CORPUSCULAR HGB CONC 34.2 g/dl (32.0-36.5); MEAN CORPUSCULAR VOLUME 97.6 fl (80.0-96.0); MONO # 0.5 10^3/uL (0.0-0.8); NEUTROPHILS # 3.3 10^3/uL (1.5-8.5); NEUTROPHILS % 64.2 % (36.0-66.0); PLATELET COUNT, AUTOMATED 336 10^3/uL (150-450); RED BLOOD COUNT 4.17 10^6/uL (4.30-6.10); WHITE BLOOD COUNT 5.2 10^3/uL (4.0-10.0)
[2020-01-04 17:46] LABS: ALBUMIN 3.7 GM/DL (3.2-5.2); ALT/SGPT 31 U/L (12-78); BILIRUBIN,TOTAL 0.3 MG/DL (0.2-1.0); BLOOD UREA NITROGEN 9 MG/DL (7-18); CARBON DIOXIDE LEVEL 26 MEQ/L (21-32); CHLORIDE LEVEL 109 MEQ/L (98-107); CREATININE FOR GFR 0.86 MG/DL (0.70-1.30); GLOMERULAR FILTRATION RATE > 60.0 (>56); GLUCOSE, FASTING 95 MG/DL (70-100); POTASSIUM SERUM 4.1 MEQ/L (3.5-5.1); SODIUM LEVEL 142 MEQ/L (136-145); TOTAL PROTEIN 6.9 GM/DL (6.4-8.2)
== END ==
LOC: M LAB REF 16:29
PROVIDERS: ATTEND Nurse Practitioner Family
DX: K46.9 Unspecified abdominal hernia without obstruction or gangrene (principal); F17.200 Nicotine dependence, unspecified, uncomplicated; R45.850 Homicidal ideations

== ENCOUNTER 2021-08-26 17:07 | Emergency (ER) | payer OTHER ==
[~2021-08-26] VITALS: Ht 172.7 cm; Wt 63.6 kg
[~2021-08-26 17:07] MED LIST changes: -OLAN10TA2 PO; +OLAN1TAB16 PO; +OLAN1TAB20 PO; -OLAN5TAB PO
--- OUTSIDE RECORDS SUMMARY | 2021-08-26 17:11 | CCD ---
Author Author [facility] Organization [facility] Address Unknown Phone Unavailable Support Name Relationship Address Phone ANT WOLFF Next Of Kin [address] [place] [address] UNKNOWN, NAIF Next Of Kin [address] [place] [address] [place] [address] Unavailabl e MANJIT WOLFF Next Of [facility] [place] [address] Unavailable CLARENCE WOLFF Next Of Kin [address] [place] [address] Suzanne Weaver Next Of Kin [address] [place] [address] Geno Alvarenga MD Next Of Kin [address] [place], [place] [id number] Milady Smith Next Of Kin [address] [place] [address] 315 NONE, NONE Next Of Kin [address] [place] [address] Janet PADILLA Next Of Kin [address] [facility] [address] [place] [address] BOB Mosher Debbie Next Of Kin [address] [place] [address] 315 FAYE WATSON Next Of Kin [address] [place] [address] CONTACT, NONE Next Of Kin - -, - - - RAFA BOBO Next Of Kin UNKNOWN [place] [id number] Merlene Zapata Next Of Kin [address] [place] [address] Saranya Mccauley Next Of Kin [address] [place] [address] UE Next Of Kin Unknown Unavailable DEDE MCKINNEY Next Of Kin [address] [place] [address] DISABLED Next Of Kin Unknown Unavailable FAYE CAMPOS Next Of Kin [address] [place], [place] [id number] RENE PADILLA Next Of Kin [address] [place] [address] NONE, PT PER Next Of Kin - - -, [place] - - UN Next Of Kin Unknown Unavailable Re-disclosure Warning The records that you are about to access may contain information from federally-assisted alcohol or drug abuse programs. If such information is present, then the following federally mandated warning applies: This information has been disclosed to you from records protected by federal confidentiality rules (42 CFR part 2). The federal rules prohibit you from making any further disclosure of this information unless further disclosure is expressly permitted by the written consent of the person to whom it pertains or as otherwise permitted by 42 CFR part 2. A general authorization for the release of medical or other information is NOT sufficient for this purpose. The Federal rules restrict any use of the information to criminally investigate or prosecute any alcohol or drug abuse patient.The records that you are about to access may contain highly sensitive health information, the redisclosure of which is protected by Article 27-F of the [facility] Public Health law. If you continue you may have access to information: Regarding HIV / AIDS; Provided by facilities licensed or operated by the [facility] Office of Mental Health; or Provided by the [facility] Office for People With Developmental Disabilities. If such information is present, then the following [facility] mandated warning applies: This information has been disclosed to you from confidential records which are protected by state law. State law prohibits you from making any further disclosure of this information without the specific written consent of the person to whom it pertains, or as otherwise permitted by law. Any unauthorized further disclosure in violation of state law may result in a fine or intermediate sentence or both. A general authorization for the release of medical or other information is NOT sufficient authorization for further disc losure. Family History Family Member Name Family Member Gender Family Member Status Date o f Status Description Data Source(s) Unknown Male Problem MEDENT ([facility], ) () Medications No Information Insurance Providers Payer name Policy type / Coverage type Policy ID Covered constitution party ID Covered constitution party's relationship to lawrence Policy Lawrence Plan Information Medicaid S [id number] S [id number] Managed Care - Community Plan [facility] P [id number] S [id number] Medicaid S [id number] S [id number] Managed Care - Community Plan [facility] P [id number] S [id number] [employer] COMMUNITY PLAN MCDHMO [id number] SP [id number] UN[employer] COMMUNITY PLAN MCDHMO [id number] SP [id number] [employer] COMMUNITY PLAN MCDHMO [id number] SP [id number] Medicaid S [id number] S [id number] Managed Care - Community Plan [facility] P [id number] S [id number] Managed Care - Community Plan [facility] P [id number] S [id number] [employer] COMMUNITY PLAN MCDHMO [id number] SP [id number] [employer] COMMUNITY PLAN MCDHMO [id number] SP [id number] Managed Care - Community Plan [facility] P [id number] S [id number] [facility] [id number] SP [id number] Medicaid S [id number] S [id number] [facility] Health Maintenance Organization (HMO) [id number] Self [id number] [employer] COMMUNITY PLAN MCDHMO [id number] SP [id number] [facility] COMMERCIAL 30 [id number] Self [id number] [facility] COMMUNITY PLAN [place] 30 [id number] Self [id number] Managed Care - Community Plan [facility] P [id number] S [id number] [facility] COMMERCIAL 30 [id number] Self [id number] [facility] Health Maintenance Organization (HMO) [id number] Self [id number] Managed Care - [facility] Community Plan P [id number] S [id number] Medicaid S [id number] S [id number] Managed Care - [facility] Community Plan P [id number] S [id number] Medicaid S [id number] S [id number] [facility](MCAID) O [id number] S [id number] [facility] COMMUNITY PL [id number] S [id number] [facility] COMMUNITY PL [id number] Unemploye d [id number] [facility] [id number] SP [id number] [facility] Health Maintenance Organization (HMO) [id number] Self [id number] [employer] COMMUNITY PLAN MCDHMO [id number] SP [id number] UNHC AMERICHOICE XIX -HMO [id number] 18 [id number] UN[employer] COMMUNITY PLAN MCDO [id number] SP [id number] MEDICAID [id number] SP [id number] [facility](MCAID) O [id number] S [id number] MEDICAID - O/P EMERGENCY ROOM [id number] UN[employer] COMMUNITY PLAN MCDHMO [id number] SP [id number] [facility] Essential Plan P [id number] S [id number] [facility](MCAID) O [id number] S [id number] MEDICAID [id number] SP [id number] [facility] Community Plan Commercial [id number] Self Managed Care - [facility] O [id number] S [id number] UNHC COMMUNITY PLAN MCDO [id number] SP [id number] [facility](MCAID) P [id number] S [id number] MEDICAID UNAVAILABLE SP UNAVAILA BLE SELF PAY UNAVAILABLE UNAVAILA BLE [employer] PLAN [id number] SP [id number] [employer] PLAN [id number] SP [id number] [employer] PLAN [id number] SP [id number] Problems, Conditions, and Diagnoses No Information Surgeries/Procedures No Information Results No Information Social History No Information
[2021-08-26] MEDS: TETRACAINE 0.5% OPHTH SOLN 4ML OU ONE ×2 (17:55→18:27)
[2021-08-26 18:15] LABS: HEMATOCRIT 44.2 % (42.0-52.0); HEMOGLOBIN 14.8 g/dl (13.5-17.5); MEAN CORPUSCULAR HEMOGLOBIN 32.1 pg (27.0-33.0); MEAN CORPUSCULAR HGB CONC 33.5 g/dl (32.0-36.5); MEAN CORPUSCULAR VOLUME 95.9 fl (80.0-96.0); PLATELET COUNT, AUTOMATED 319 10^3/uL (150-450); RED BLOOD COUNT 4.61 10^6/uL (4.30-6.10); WHITE BLOOD COUNT 10.2 10^3/uL (4.0-10.0)
[2021-08-26 18:47] LABS: ACETAMINOPHEN LEVEL < 2.0 UG/ML (10.0-30.0); ALBUMIN 3.8 GM/DL (3.2-5.2); ALT/SGPT 19 U/L (12-78); BILIRUBIN,DIRECT < 0.1 MG/DL (0.0-0.2); BILIRUBIN,TOTAL 0.3 MG/DL (0.2-1.0); BLOOD UREA NITROGEN 7 MG/DL (7-18); CALCIUM LEVEL 8.9 MG/DL (8.5-10.1); CARBON DIOXIDE LEVEL 28 MEQ/L (21-32); CHLORIDE LEVEL 106 MEQ/L (98-107); CREATININE FOR GFR 0.93 MG/DL (0.70-1.30); ETHYL ALCOHOL (ETHANOL) 0.156 % (0.000-0.010); GLOMERULAR FILTRATION RATE > 60.0 (>56); GLUCOSE, FASTING 83 MG/DL (70-100); POTASSIUM SERUM 4.3 MEQ/L (3.5-5.1); SALICYLATE LEVEL 1.9 MG/DL (5.0-30.0); SODIUM LEVEL 141 MEQ/L (136-145); TOTAL PROTEIN 7.6 GM/DL (6.4-8.2)
[2021-08-26 18:49] LABS: AMPHETAMINES LEVEL URINE NEGATIVE (NEGATIVE); BARBITURATES URINE NEGATIVE (NEGATIVE); BENZODIAZEPINES URINE NEGATIVE (NEGATIVE); CANNABINOIDS URINE NEGATIVE (NEGATIVE); COCAINE METABOLITE URINE NEGATIVE (NEGATIVE); METHADONE URINE NEGATIVE (NEGATIVE); OPIATES URINE NEGATIVE (NEGATIVE); PHENCYCLIDINE URINE NEGATIVE (NEGATIVE)
--- OUTSIDE RECORDS SUMMARY | 2021-08-26 18:53 | CCD ---
Author Author [facility] Organization [facility] Address Unknown Phone Unavailable Support Name Relationship Address Phone ANT WOLFF Next Of Kin [address] [place] [address] UNKNOWN, NAIF Next Of Kin [address] [place] [address] [place] [address] Unavailabl e MANJIT WOLFF Next Of [facility] [place] [address] Unavailable CLARENCE WOLFF Next Of Kin [address] [place] [address] Suzanne Weaver Next Of Kin [address] [place] [address] Geno Alvarenga MD Next Of Kin [address] [place], [place] [id number] Milady Smith Next Of Kin [address] [place] [address] 315 NONE, NONE Next Of Kin [address] [place] [address] Janet PADILLA Next Of Kin [address] [facility] [address] [place] [address] BOB Mosher Debbie Next Of Kin [address] [place] [address] 315 FAYE WATSON Next Of Kin [address] [place] [address] CONTACT, NONE Next Of Kin - -, - - - RAFA BOBO Next Of Kin UNKNOWN [place] [id number] Fely SORIANO, Merlene Next Of Kin [address] [place] [address] Saranya Mccauley Next Of Kin [address] [place], [place] [id number] UE Next Of Kin Unknown Unavailable DEDE MCKINNEY Next Of Kin [address] [place] [address] DISABLED Next Of Kin Unknown Unavailable FAYE CAMPOS Next Of Kin [address] [place] [address] RENE PADILLA Next Of Kin [address] [place] [address] NONE, PT PER Next Of Kin - [...] is protected by Article 27-F of the [facility] Public Health law. If you continue you may have access to information: Regarding HIV / AIDS; Provided by facilities licensed or operated by the [facility] Office of Mental Health; or Provided by the [facility] Office for People With Developmental Disabilities. If such information is present, then the following [facility] mandated warning applies: This information has [...] law may result in a fine or detention sentence or both. A general authorization for the release of medical or other information is NOT sufficient authorization for further disc losure. Family History Family Member Name Family Member Gender Family Member Status Date o f Status Description Data Source(s) Unknown Male Problem MEDENT ([facility], ) () Medications No Information Insurance Providers Payer name Policy type / Coverage type Policy ID Covered republican ID Covered republican's relationship to lawrence Policy Lawrence Plan Information Medicaid S [id number] S [id number] Managed Care - Community Plan [facility] P [id number] S [id number] Medicaid S [id number] S [id number] [employer]HC COMMUNITY PLAN MCDHMO [id number] SP [id number] Managed Care - Community Plan [facility] P [id number] S [id number] UNHC COMMUNITY PLAN MCDHMO [id number] SP [id number] UNHC COMMUNITY PLAN MCDHMO [id number] SP [id number] Medicaid S [id number] S [id number] Managed Care - Community Plan [facility] P [id number] S [id number] Managed Care - Community Plan [facility] P [id number] S [id number] [place] MED[place] [id number] SP [id number] UNHC COMMUNITY PLAN MCDHMO [id number] SP [id number] [facility] [id number] SP [id number] UNHC COMMUNITY PLAN MCDHMO [id number] SP [id number] Managed Care - Community Plan [facility] P [id number] S [id number] Medicaid S [id number] S [id number] [facility] [place] Health Maintenance Organization (HMO) [id number] Self [id number] [facility] [place] Health Maintenance Organization (HMO) [id number] Self [id number] Managed Care - Community Plan [facility] P [id number] S [id number] [facility] COMMERCIAL 30 [id number] Self [id number] [facility] COMMUNITY PLAN O [place] 30 [id number] Self [id number] Managed Care - [facility] Community Plan P [id number] S [id number] UHC COMMERCIAL 30 [id number] Self [id number] UNHC COMMUNITY PLAN MCDHMO [id number] SP [id number] Medicaid S [id number] S [id number] Managed Care - [facility] Community Plan P [id number] S [id number] Medicaid S [id number] S [id number] UNHC COMMUNITY PLAN MCDHMO [id number] SP [id number] MEDICAID [id number] SP [id number] [facility] COMMUNITY PL [id number] Unemploye d [id number] [facility](MCAID) O [id number] S [id number] MEDICAID - O/P EMERGENCY ROOM [id number] [facility] COMMUNITY PL [id number] S [id number] UNHC COMMUNITY PLAN MCDHMO [id number] SP [id number] [facility] Essential Plan P [id number] S [id number] [employer] PLAN [id number] SP [id number] [facility](MCAID) O [id number] S [id number] MEDICAID [id number] SP [id number] [facility](MCAID) O [id number] S [id number] [facility] Community Plan Commercial [id number] Self Managed Care - [facility] O [id number] S [id number] UNHC COMMUNITY PLAN MCDHMO [id number] SP [id number] [employer] PLAN [id number] SP [id number] [facility](MCAID) P [id number] S [id number] [facility] [id number] SP [id number] [facility] Health Maintenance Organization (HMO) [id number] Self [id number] [employer] COMMUNITY PLAN MCDHMO [id number] SP [id number] MEDICAID UNAVAILABLE SP UNAVAILA BLE [employer]HC AMERICHOICE XIX -HMO [id number] 18 [id number] SELF PAY UNAVAILABLE UNAVAILA BLE [employer] THAKUR PLAN [id number] SP [id number] Problems, Conditions, and Diagnoses No Information Surgeries/Procedures No Information Results No Information Social History No Information
--- NOTE | 2021-08-26 19:34 | REPVR ---
PROCEDURE INFORMATION: Exam: CT Head Without Contrast Exam date and time: 08/26/2021 6:45 PM Age: 56 years old Clinical indication: Visual disturbance; Additional info: Visual changes for weeks TECHNIQUE: Imaging protocol: Computed tomography of the head without contrast. Radiation optimization: All CT scans at this facility use at least one of these dose optimization techniques: automated exposure control; mA and/or kV adjustment per patient size (includes targeted exams where dose is matched to clinical indication); or iterative reconstruction. COMPARISON: CT Head without contrast 01/25/2016 12:52 AM FINDINGS: Brain: Chronic mild dural calcifications along the tentorium. No evidence of acute intracranial hemorrhage. Small chronic bilateral basal ganglia lacunar infarcts. Mild nonspecific hypodensities of the periventricular and deep subcortical white matter, most likely secondary to chronic small vessel ischemic change. No intracranial hemorrhage or extra-axial fluid collection. No evidence of mass effect or midline shift. Hickman-white matter differentiation is normal. Cerebral ventricles: No ventriculomegaly. Paranasal sinuses: Moderate mucosal thickening of the left ethmoid and maxillary sinuses. Mastoid air cells: Unremarkable. Bones/joints: No acute osseus lesion or fracture. Soft tissues: Unremarkable. IMPRESSION: 1. No acute intracranial pathology. 2. Moderate mucosal thickening of the left ethmoid and maxillary sinuses. 3. Other chronic findings, as above. Electronically signed by: Harris Bedoya On 08/26/2021 19:33:43 PM
[2021-08-26] MEDS ORDERED: OXAZEPAM 10 MG CAP PO ONE (19:55)
[2021-08-26] MEDS ORDERED: ISOVUE-370 76% 100ML VIAL As Ordered ONE (20:04)
--- NOTE | 2021-08-26 20:37 | REPVR ---
PROCEDURE INFORMATION: Exam: CT Angiography Neck With Contrast Exam date and time: 08/26/2021 8:30 PM Age: 56 years old Clinical indication: Visual disturbance; Sudden visual loss; Additional info: Left eye vision loss TECHNIQUE: Imaging protocol: Computed tomography angiography of the neck with contrast. 3D rendering (Not supervised by radiologist): MIP and/or 3D reconstructed images were created by the technologist. Radiation optimization: All CT scans at this facility use at least one of these dose optimization techniques: automated exposure control; mA and/or kV adjustment per patient size (includes targeted exams where dose is matched to clinical indication); or iterative reconstruction. Contrast material: ISOVUE 370; Contrast volume: 100 ml; Contrast route: INTRAVENOUS (IV); COMPARISON: CT Spine,cervical w/o contrast 04/16/2015 10:20 PM FINDINGS: Right common carotid artery: No significant stenosis. No dissection or occlusion. Right internal carotid artery: Extracranial segment is patent with no significant stenosis (0% stenosis by NASCET criteria). No dissection or occlusion. Right external carotid artery: No occlusion or significant stenosis. Left common carotid artery: No significant stenosis. No dissection or occlusion. Left internal carotid artery: Extracranial segment is patent with no significant stenosis (0% stenosis by NASCET criteria). No dissection or occlusion. Left external carotid artery: No occlusion or significant stenosis. Right vertebral artery: No significant stenosis. No dissection or occlusion. Left vertebral artery: No significant stenosis. No dissection or occlusion. Soft tissues: Unremarkable. Bones/joints: No acute fracture. IMPRESSION: No occlusion or significant stenosis in the arteries of the neck. REFERENCES: NASCET CRITERIA. The degree of internal carotid artery stenosis is based on NASCET criteria. Normal is no stenosis. Mild is less than 50% stenosis. Moderate is 50-69% stenosis. Severe is 70% to 99% stenosis. Total occlusion is no detectable patent lumen. Electronically signed by: Harris Bedoya On 08/26/2021 20:36:56 PM
--- NOTE | 2021-08-26 20:39 | REPVR ---
PROCEDURE INFORMATION: Exam: CT Angiography Head With Contrast, Arteriography Exam date and time: 08/26/2021 8:30 PM Age: 56 years old Clinical indication: Visual disturbance; Sudden visual loss; Additional info: Left eye vision loss TECHNIQUE: Imaging protocol: Computed tomography angiography of the head with contrast. Exam focused on the arteries. 3D rendering (Not supervised by radiologist): MIP and/or 3D reconstructed images were created by the technologist. Radiation optimization: All CT scans at this facility use at least one of these dose optimization techniques: automated exposure control; mA and/or kV adjustment per patient size (includes targeted exams where dose is matched to clinical indication); or iterative reconstruction. Contrast material: ISOVUE 370; Contrast volume: 100 ml; Contrast route: INTRAVENOUS (IV); COMPARISON: CT Head without contrast 08/26/2021 6:36 PM FINDINGS: ANTERIOR CIRCULATION: Right internal carotid artery: Intracranial segment is patent with no evidence of hemodynamically significant stenosis. No aneurysm. Right middle cerebral artery: No occlusion or significant stenosis. No aneurysm. Right anterior cerebral artery: No occlusion or significant stenosis. No aneurysm. Left internal carotid artery: Intracranial segment is patent with no evidence of hemodynamically significant stenosis. No aneurysm. Left middle cerebral artery: No occlusion or significant stenosis. No aneurysm. Left anterior cerebral artery: No occlusion or significant stenosis. No aneurysm. POSTERIOR CIRCULATION: Right vertebral artery: No occlusion or significant stenosis. No aneurysm. Left vertebral artery: No occlusion or significant stenosis. No aneurysm. Basilar artery: No occlusion or significant stenosis. No aneurysm. Right posterior cerebral artery: No occlusion or significant stenosis. No aneurysm. Left posterior cerebral artery: No occlusion or significant stenosis. No aneurysm. Other arteries: Bilateral ophthalmic arteries are opacified. IMPRESSION: No intracranial arterial occlusion or significant stenosis. Electronically signed by: Harris Bedoya On 08/26/2021 20:39:03 PM
[2021-08-26 21:37] VITALS: BP 109/64
--- NOTE | 2021-08-27 07:48 | ED PDOC ---
Post-Departure Follow-Up radiology report faxed to Ana Rosa Daniels MD Aug 27, 2021 07:48
== END 2021-08-26 21:40 | disposition home or self-care (01) ==
LOC: M ED 17:07
DX: H54.10 Blindness, one eye, low vision other eye, unspecified eyes (principal); I25.10 Atherosclerotic heart disease of native coronary artery without angina pectoris; I25.2 Old myocardial infarction; F17.200 Nicotine dependence, unspecified, uncomplicated; F10.10 Alcohol abuse, uncomplicated; Z88.6 Allergy status to analgesic agent
CPT/HCPCS: 36415; 70450; 70496; 70498; 80048; 80076; 80143; 80307; 82077; 84443; 85027; 99284; Q9967

== ENCOUNTER 2021-11-07 19:01 | Emergency (ER) | payer MEDICAID, OTHER ==
[~2021-11-07] VITALS: Ht 172.7 cm; Wt 59.1 kg
[~2021-11-07 19:01] MED LIST changes: +DISU1TAB6 PO; -DISU250T PO
[2021-11-07] MEDS ORDERED: TETRACAINE 0.5% OPHTH SOLN 4ML OU ONE (19:55)
[2021-11-07 20:25] LABS: BASO % 0.4 % (0.0-1.0); EOS # 0.1 10^3/uL (0.0-0.5); EOS % 1.4 % (0.0-3.0); HEMOGLOBIN 15.1 g/dl (13.5-17.5); LYMPH # 2.4 10^3/uL (1.5-5.0); LYMPH % 34.6 % (24.0-44.0); MEAN CORPUSCULAR HEMOGLOBIN 31.1 pg (27.0-33.0); MEAN CORPUSCULAR HGB CONC 34.3 g/dl (32.0-36.5); MEAN CORPUSCULAR VOLUME 90.7 fl (80.0-96.0); MONO # 0.5 10^3/uL (0.0-0.8); MONO % 7.2 % (2.0-8.0); NEUTROPHILS # 3.9 10^3/uL (1.5-8.5); NEUTROPHILS % 55.8 % (36.0-66.0); PLATELET COUNT, AUTOMATED 324 10^3/uL (150-450); RED BLOOD COUNT 4.85 10^6/uL (4.30-6.10); WHITE BLOOD COUNT 6.9 10^3/uL (4.0-10.0)
[2021-11-07 20:39] LABS: INR 1.03; PROTHROMBIN TIME 13.9 SECONDS (12.7-14.5)
[2021-11-07 20:40] LABS: PARTIAL THROMBOPLASTIN TIME 27.1 SECONDS (25.9-37.0)
[2021-11-07] MEDS ORDERED: ISOVUE-370 76% 100ML VIAL As Ordered ONE (20:44)
[2021-11-07 20:58] LABS: BLOOD UREA NITROGEN 7 MG/DL (7-18); CALCIUM LEVEL 8.8 MG/DL (8.5-10.1); CARBON DIOXIDE LEVEL 24 MEQ/L (21-32); CHLORIDE LEVEL 108 MEQ/L (98-107); CREATININE FOR GFR 1.03 MG/DL (0.70-1.30); GLOMERULAR FILTRATION RATE > 60.0 (>56); GLUCOSE, FASTING 85 MG/DL (70-100); SODIUM LEVEL 142 MEQ/L (136-145)
[2021-11-07 23:30] VITALS: BP 109/64
== END 2021-11-07 23:45 | disposition home or self-care (01) ==
LOC: M ED 19:01
DX: F10.229 Alcohol dependence with intoxication, unspecified (principal); Y90.1 Blood alcohol level of 20-39 mg/100 ml; H53.9 Unspecified visual disturbance; I25.10 Atherosclerotic heart disease of native coronary artery without angina pectoris; I25.2 Old myocardial infarction; Z88.5 Allergy status to narcotic agent; F17.210 Nicotine dependence, cigarettes, uncomplicated
CPT/HCPCS: 36415; 70450; 70496; 70498; 71045; 80047; 80048; 82077; 85025; 85610; 85730; 93005; 93041; 94760; 99285; Q9967

== ENCOUNTER 2021-11-17 20:10 | Inpatient (IN) | payer MEDICAID, OTHER ==
[~2021-11-17] VITALS: Ht 175.3 cm; Wt 67.6 kg
[2021-11-17 21:15] LABS: HEMATOCRIT 41.9 % (42.0-52.0); HEMOGLOBIN 14.3 g/dl (13.5-17.5); MEAN CORPUSCULAR HEMOGLOBIN 31.6 pg (27.0-33.0); MEAN CORPUSCULAR HGB CONC 34.1 g/dl (32.0-36.5); MEAN CORPUSCULAR VOLUME 92.5 fl (80.0-96.0); PLATELET COUNT, AUTOMATED 286 10^3/uL (150-450); RED BLOOD COUNT 4.53 10^6/uL (4.30-6.10); WHITE BLOOD COUNT 7.7 10^3/uL (4.0-10.0)
[2021-11-17 21:50] LABS: AMPHETAMINES LEVEL URINE NEGATIVE (NEGATIVE); BARBITURATES URINE NEGATIVE (NEGATIVE); BENZODIAZEPINES URINE NEGATIVE (NEGATIVE); CANNABINOIDS URINE NEGATIVE (NEGATIVE); COCAINE METABOLITE URINE NEGATIVE (NEGATIVE); METHADONE URINE NEGATIVE (NEGATIVE); OPIATES URINE NEGATIVE (NEGATIVE); PHENCYCLIDINE URINE NEGATIVE (NEGATIVE)
[2021-11-17 21:52] LABS: ACETAMINOPHEN LEVEL < 2.0 UG/ML (10.0-30.0); ALBUMIN 3.6 GM/DL (3.2-5.2); ALT/SGPT 22 U/L (12-78); BILIRUBIN,DIRECT < 0.1 MG/DL (0.0-0.2); BILIRUBIN,TOTAL 0.1 MG/DL (0.2-1.0); BLOOD UREA NITROGEN 10 MG/DL (7-18); CALCIUM LEVEL 8.7 MG/DL (8.5-10.1); CARBON DIOXIDE LEVEL 26 MEQ/L (21-32); CHLORIDE LEVEL 108 MEQ/L (98-107); CREATININE FOR GFR 1.36 MG/DL (0.70-1.30); ETHYL ALCOHOL (ETHANOL) 0.176 % (0.000-0.010); GLOMERULAR FILTRATION RATE 57.5 (>56); GLUCOSE, FASTING 91 MG/DL (70-100); POTASSIUM SERUM 3.7 MEQ/L (3.5-5.1); SALICYLATE LEVEL 3.5 MG/DL (5.0-30.0); SODIUM LEVEL 142 MEQ/L (136-145)
[2021-11-17 21:55] LABS: RSV AMPLIFICATION NEGATIVE (NEGATIVE)
[2021-11-17] MEDS ORDERED: HOME MED LIST COMPLETE! XX SCH (21:55)
[2021-11-18] MEDS ORDERED: traZODone 50 MG TAB PO PRN (04:25)
[2021-11-18] MEDS ORDERED: ACETAMINOPHEN TAB 650MG DOSE (2X325MG) PO PRN (04:25)
[2021-11-18] MEDS ORDERED: MOM 30ML SUSPENSION UDC PO PRN (04:25)
[2021-11-18] MEDS ORDERED: MAALOX 30 ML SUSP *UDC PO PRN (04:25)
[2021-11-18 09:01] VITALS: BP 137/81
[2021-11-18] MEDS: ESCITALOPRAM OXALATE 10 MG TAB (LEXAPRO) PO SCH (09:26)
[2021-11-18 18:58] VITALS: BP 131/94
[2021-11-19 06:30] VITALS: BP 122/78
[2021-11-19 07:37] LABS: CHOLESTEROL RISK RATIO 2.235 (<5)
[2021-11-19] MEDS: THIAMINE 100 MG TAB PO SCH (09:00)
[2021-11-19] MEDS: MULTIVITAMINS/MINERALS THERAP 1 TAB PO SCH (09:00)
[2021-11-19] MEDS: FOLIC ACID 1 MG TAB PO SCH (09:00)
[2021-11-19] MEDS: ESCITALOPRAM OXALATE 10 MG TAB (LEXAPRO) PO SCH (09:51)
[2021-11-19] MEDS ORDERED: LORazepam 2 MG TAB PO PRN (16:00)
[2021-11-19 19:10] VITALS: BP 116/69
[2021-11-19] MEDS: lamoTRIgine 25MG TAB PO SCH (21:01)
[2021-11-19] MEDS: PALIPERIDONE 3 MG ER TAB (INVEGA) PO SCH (21:01)
[2021-11-19] MEDS: PRAZOSIN 1 MG CAP PO SCH (21:01)
[2021-11-19 21:52] VITALS: BP 120/70
[2021-11-20 06:14] VITALS: BP 122/65
[2021-11-20 07:45] VITALS: BP 122/65
[2021-11-20] MEDS: lamoTRIgine 25MG TAB PO SCH ×2 (08:24→20:16)
[2021-11-20] MEDS: ESCITALOPRAM OXALATE 10 MG TAB (LEXAPRO) PO SCH (08:24)
[2021-11-20] MEDS: PALIPERIDONE 3 MG ER TAB (INVEGA) PO SCH ×2 (08:25→20:16)
[2021-11-20] MEDS: FOLIC ACID 1 MG TAB PO SCH (08:26)
[2021-11-20] MEDS: THIAMINE 100 MG TAB PO SCH (08:26)
[2021-11-20] MEDS: MULTIVITAMINS/MINERALS THERAP 1 TAB PO SCH (08:26)
[2021-11-20] MEDS: NICOTINE 21MG/24HR 1 EA TRANSDERMAL TD SCH (09:00)
[2021-11-20] MEDS ORDERED: OLANZapine ORAL DISINTEGRATING TAB 5MG PO PRN (10:10)
[2021-11-20 16:00] VITALS: BP 101/67
[2021-11-20 16:48] VITALS: BP 101/67
[2021-11-20] MEDS: PRAZOSIN 1 MG CAP PO SCH (20:18)
[2021-11-21 06:20] VITALS: BP 119/77
[2021-11-21 06:37] VITALS: BP 119/77
[2021-11-21] MEDS: THIAMINE 100 MG TAB PO SCH (08:17)
[2021-11-21] MEDS: ESCITALOPRAM OXALATE 10 MG TAB (LEXAPRO) PO SCH (08:17)
[2021-11-21] MEDS: MULTIVITAMINS/MINERALS THERAP 1 TAB PO SCH (08:17)
[2021-11-21] MEDS: lamoTRIgine 25MG TAB PO SCH ×2 (08:17→21:09)
[2021-11-21] MEDS: PALIPERIDONE 3 MG ER TAB (INVEGA) PO SCH ×2 (08:17→21:09)
[2021-11-21] MEDS: FOLIC ACID 1 MG TAB PO SCH (08:17)
[2021-11-21] MEDS: NICOTINE 21MG/24HR 1 EA TRANSDERMAL TD SCH (08:17)
[2021-11-21] MEDS ORDERED: NICOTINE 21MG/24HR 1 EA TRANSDERMAL TD PRN (08:20)
[2021-11-21 16:01] VITALS: BP 106/72
[2021-11-21 18:02] VITALS: BP 134/89
[2021-11-21 21:00] VITALS: BP 93/63
[2021-11-21] MEDS: PRAZOSIN 1 MG CAP PO SCH (21:00)
[2021-11-22 05:56] VITALS: BP 100/66
[2021-11-22 07:28] LABS: ALBUMIN 3.1 GM/DL (3.2-5.2); ALT/SGPT 21 U/L (12-78); BILIRUBIN,TOTAL 0.3 MG/DL (0.2-1.0); BLOOD UREA NITROGEN 16 MG/DL (7-18); CALCIUM LEVEL 8.5 MG/DL (8.5-10.1); CARBON DIOXIDE LEVEL 29 MEQ/L (21-32); CHLORIDE LEVEL 107 MEQ/L (98-107); CREATININE FOR GFR 1.11 MG/DL (0.70-1.30); GLOMERULAR FILTRATION RATE > 60.0 (>56); GLUCOSE, FASTING 81 MG/DL (70-100); POTASSIUM SERUM 4.6 MEQ/L (3.5-5.1); SODIUM LEVEL 139 MEQ/L (136-145); TOTAL PROTEIN 6.1 GM/DL (6.4-8.2)
[2021-11-22] MEDS: ESCITALOPRAM OXALATE 10 MG TAB (LEXAPRO) PO SCH (08:14)
[2021-11-22] MEDS: lamoTRIgine 25MG TAB PO SCH ×2 (08:14→20:50)
[2021-11-22] MEDS: FOLIC ACID 1 MG TAB PO SCH (08:14)
[2021-11-22] MEDS: MULTIVITAMINS/MINERALS THERAP 1 TAB PO SCH (08:14)
[2021-11-22] MEDS: THIAMINE 100 MG TAB PO SCH (08:15)
[2021-11-22 10:51] VITALS: BP 124/80
[2021-11-22 16:26] VITALS: BP 102/58
[2021-11-22] MEDS: PALIPERIDONE 3 MG ER TAB (INVEGA) PO SCH (20:50)
[2021-11-23 06:33] VITALS: BP 113/72
[2021-11-23] MEDS: lamoTRIgine 25MG TAB PO SCH (08:23)
[2021-11-23] MEDS: ESCITALOPRAM OXALATE 10 MG TAB (LEXAPRO) PO SCH (08:23)
[2021-11-23] MEDS: FOLIC ACID 1 MG TAB PO SCH (09:00)
[2021-11-23] MEDS: MULTIVITAMINS/MINERALS THERAP 1 TAB PO SCH (09:00)
[2021-11-23] MEDS: THIAMINE 100 MG TAB PO SCH (09:00)
[2021-11-23 19:21] VITALS: BP 113/77
[2021-11-23] MEDS ORDERED: PALIPERIDONE 3 MG ER TAB (INVEGA) PO SCH (21:00)
[2021-11-24 06:21] VITALS: BP 118/64
[2021-11-24] MEDS: ESCITALOPRAM OXALATE 10 MG TAB (LEXAPRO) PO SCH (08:16)
[2021-11-24] MEDS: lamoTRIgine 25MG TAB PO SCH (08:16)
[2021-11-24] MEDS ORDERED: PALIPERIDONE PALMITATE 234MG/1.5ML INJ (INVEGA)(FREE PSY INPT ONLY) IM ONE (08:45)
[2021-11-24 17:47] VITALS: BP 110/70
[2021-11-25 06:12] VITALS: BP 140/76
[2021-11-25] MEDS: lamoTRIgine 25MG TAB PO SCH (08:13)
[2021-11-25] MEDS: ESCITALOPRAM OXALATE 10 MG TAB (LEXAPRO) PO SCH (08:13)
[2021-11-25 16:42] VITALS: BP 112/71
[2021-11-26 06:34] VITALS: BP 112/74
[2021-11-26] MEDS: ESCITALOPRAM OXALATE 10 MG TAB (LEXAPRO) PO SCH (08:00)
[2021-11-26 16:13] VITALS: BP 111/72
[2021-11-27 06:30] VITALS: BP 106/76
[2021-11-27] MEDS: ESCITALOPRAM OXALATE 10 MG TAB (LEXAPRO) PO SCH (08:05)
[2021-11-27] MEDS ORDERED: PALIPERIDONE PALMITATE 156MG/1ML INJ(INVEGA)(FREE PSY INPT ONLY) IM ONE (09:00)
[2021-11-27] MEDS ORDERED: INVE234I IM (10:14)
[2021-11-27] MEDS ORDERED: LEXA1TAB PO (10:14)
[2021-11-27] MEDS ORDERED: NICO21PAT TD (10:14)
== END 2021-11-27 11:58 | disposition home or self-care (01) | DRG 753 ==
LOC: M ED 20:10 → M ED INP 11-18 04:25 → M PSY 11-18 08:54
PROVIDERS: ADMIT Student in an Organized Health Care Education/Training Program; ATTEND Student in an Organized Health Care Education/Training Program
DX: F31.64 Bipolar disorder, current episode mixed, severe, with psychotic features (principal); F10.20 Alcohol dependence, uncomplicated; F17.200 Nicotine dependence, unspecified, uncomplicated; F43.10 Post-traumatic stress disorder, unspecified; F60.2 Antisocial personality disorder; Z88.5 Allergy status to narcotic agent; I25.10 Atherosclerotic heart disease of native coronary artery without angina pectoris; R45.850 Homicidal ideations; I25.2 Old myocardial infarction; Z77.090 Contact with and (suspected) exposure to asbestos

== ENCOUNTER 2021-12-08 18:10 | Emergency (ER) | payer MEDICAID ==
[~2021-12-08] VITALS: Ht 175.3 cm; Wt 150.0 kg
[~2021-12-08 18:10] MED LIST changes: +INVE234I IM; +LEXA1TAB PO
[2021-12-08 19:23] LABS: BASO % 0.5 % (0.0-1.0); EOS # 0.3 10^3/uL (0.0-0.5); EOS % 5.1 % (0.0-3.0); HEMATOCRIT 39.8 % (42.0-52.0); HEMOGLOBIN 13.6 g/dl (13.5-17.5); LYMPH # 1.6 10^3/uL (1.5-5.0); LYMPH % 24.9 % (24.0-44.0); MEAN CORPUSCULAR HEMOGLOBIN 31.6 pg (27.0-33.0); MEAN CORPUSCULAR HGB CONC 34.2 g/dl (32.0-36.5); MEAN CORPUSCULAR VOLUME 92.3 fl (80.0-96.0); MONO # 0.6 10^3/uL (0.0-0.8); MONO % 8.7 % (2.0-8.0); NEUTROPHILS # 3.8 10^3/uL (1.5-8.5); NEUTROPHILS % 60.3 % (36.0-66.0); PLATELET COUNT, AUTOMATED 261 10^3/uL (150-450); RED BLOOD COUNT 4.31 10^6/uL (4.30-6.10); WHITE BLOOD COUNT 6.3 10^3/uL (4.0-10.0)
[2021-12-08] MEDS: GASTROGRAFIN SOLUTION 30ML PO SCH ×2 (19:30→19:47)
[2021-12-08 20:27] LABS: ALBUMIN 3.5 GM/DL (3.2-5.2); ALT/SGPT 27 U/L (12-78); BILIRUBIN,DIRECT < 0.1 MG/DL (0.0-0.2); BILIRUBIN,TOTAL 0.4 MG/DL (0.2-1.0); BLOOD UREA NITROGEN 9 MG/DL (7-18); CALCIUM LEVEL 8.9 MG/DL (8.5-10.1); CARBON DIOXIDE LEVEL 28 MEQ/L (21-32); CHLORIDE LEVEL 109 MEQ/L (98-107); CREATININE FOR GFR 1.25 MG/DL (0.70-1.30); GLOMERULAR FILTRATION RATE > 60.0 (>56); GLUCOSE, FASTING 81 MG/DL (70-100); LIPASE 122 U/L (73-393); POTASSIUM SERUM 4.8 MEQ/L (3.5-5.1); SODIUM LEVEL 142 MEQ/L (136-145)
[2021-12-08] MEDS ORDERED: ISOVUE-370 76% 100ML VIAL As Ordered ONE (20:51)
[2021-12-08] MEDS ORDERED: NS 1,000 ML IV ONE (21:50)
[2021-12-08] MEDS ORDERED: KETOROLAC 30 MG/ML 1ML VIAL IV ONE (21:50)
[2021-12-08 22:45] VITALS: BP 107/66
== END 2021-12-08 23:03 | disposition home or self-care (01) ==
LOC: M ED 18:10 → EDBD 18:10 → M ED 23:03
DX: R10.814 Left lower quadrant abdominal tenderness (principal); F10.20 Alcohol dependence, uncomplicated; F32.A Depression, unspecified; K21.9 Gastro-esophageal reflux disease without esophagitis; F17.200 Nicotine dependence, unspecified, uncomplicated; Z86.79 Personal history of other diseases of the circulatory system; Z88.6 Allergy status to analgesic agent; Z79.899 Other long term (current) drug therapy
CPT/HCPCS: 74177; 80048; 80076; 83605; 83690; 85025; 93041; 96361; 96374; 99285; J1885; Q9963; Q9967

== ENCOUNTER 2022-03-01 09:09 | Day surgery (SDC) | payer OTHER ==
[~2022-03-01] VITALS: Ht 175.3 cm; Wt 66.6 kg
[~2022-03-01 09:09] MED LIST changes: +ALBU2.5V10 INH; -ALBU83IN INH; +ARIP1TAB6 PO; +CYCLOPENTOLATE 1% OPHTH SOLN 2 ML BTL OS SCH; +FLURBIPROFEN 0.03% OPHTH SOLN 2.5 ML OS SCH; +LIDOCAINE 1% SDV 5ML VIAL As Ordered ONE; +LR 1,000 ML IV SCH; +MAXITROL OPHTH SUSP 5 ML As Ordered ONE; +PHENYLEPHRINE 2.5% OPHTH SOL 2ML OS SCH; +PHENYLEPHRINE HCL 10 % OPHTH. SOL 5ML OS ONE; +TETRACAINE 0.5% OPHTH SOLN 4ML OS SCH; +VITA200016 PO
[2022-03-01] MEDS ORDERED: MIDAZOLAM INJ 2MG/2ML VIAL (J2250 PER 1MG) As Ordered ONE (10:08)
[2022-03-01] MEDS ORDERED: fentaNYL 100 MCG/2 ML INJECTION As Ordered ONE (10:08)
[2022-03-01] MEDS ORDERED: LIDOCAINE 2% 100MG/5ML SDV (FOR ANES.) As Ordered ONE (10:09)
[2022-03-01] MEDS ORDERED: propofoL 200 MG/20 ML VIAL As Ordered ONE (10:09)
[2022-03-01] MEDS ORDERED: dexameTHASONE 4 MG/ML 1ML VIAL (J1100 PER 1MG) As Ordered ONE (10:10)
[2022-03-01] MEDS ORDERED: ONDANSETRON 4MG/2ML VIAL As Ordered ONE (10:10)
[2022-03-01] MEDS ORDERED: TRYPAN BLUE 0.06 % 2.25 ML OPHTH SYR (VISIONBLUE) As Ordered ONE ×2 (12:21→12:48)
[2022-03-01 14:02] VITALS: BP 139/63
== END 2022-03-01 17:10 | disposition home or self-care (01) ==
LOC: M SDC 09:09
PROVIDERS: ATTEND Ophthalmology
DX: H25.12 Age-related nuclear cataract, left eye (principal); I10 Essential (primary) hypertension; I25.2 Old myocardial infarction; I25.10 Atherosclerotic heart disease of native coronary artery without angina pectoris; J44.9 Chronic obstructive pulmonary disease, unspecified; F17.210 Nicotine dependence, cigarettes, uncomplicated; F41.9 Anxiety disorder, unspecified; Z79.899 Other long term (current) drug therapy
CPT/HCPCS: 66984; 87428; J1100; J2250; J2405; J3010; V2632

== ENCOUNTER 2022-07-05 17:18 | Emergency (ER) | payer OTHER ==
[~2022-07-05] VITALS: Ht 172.7 cm; Wt 69.3 kg
[~2022-07-05 17:18] MED LIST changes: -CYCLOPENTOLATE 1% OPHTH SOLN 2 ML BTL OS SCH; -FLURBIPROFEN 0.03% OPHTH SOLN 2.5 ML OS SCH; -LIDOCAINE 1% SDV 5ML VIAL As Ordered ONE; -LR 1,000 ML IV SCH; -MAXITROL OPHTH SUSP 5 ML As Ordered ONE; -PHENYLEPHRINE 2.5% OPHTH SOL 2ML OS SCH; -PHENYLEPHRINE HCL 10 % OPHTH. SOL 5ML OS ONE; -TETRACAINE 0.5% OPHTH SOLN 4ML OS SCH
[2022-07-05 18:13] LABS: BASO % 0.5 % (0.0-1.0); EOS # 0.1 10^3/uL (0.0-0.5); HEMATOCRIT 40.5 % (42.0-52.0); LYMPH # 1.9 10^3/uL (1.5-5.0); LYMPH % 24.8 % (24.0-44.0); MEAN CORPUSCULAR HEMOGLOBIN 34.1 pg (27.0-33.0); MEAN CORPUSCULAR HGB CONC 34.6 g/dl (32.0-36.5); MEAN CORPUSCULAR VOLUME 98.5 fl (80.0-96.0); MONO # 0.8 10^3/uL (0.0-0.8); MONO % 10.7 % (2.0-8.0); NEUTROPHILS # 4.9 10^3/uL (1.5-8.5); NEUTROPHILS % 62.5 % (36.0-66.0); PLATELET COUNT, AUTOMATED 229 10^3/uL (150-450); RED BLOOD COUNT 4.11 10^6/uL (4.30-6.10); WHITE BLOOD COUNT 7.8 10^3/uL (4.0-10.0)
[2022-07-05 18:24] LABS: INR 0.94; PARTIAL THROMBOPLASTIN TIME 24.7 SECONDS (24.8-34.2); PROTHROMBIN TIME 12.8 SECONDS (12.5-14.5)
[2022-07-05] MEDS ORDERED: KETOROLAC 30 MG/ML 1ML VIAL IV ONE (18:35)
[2022-07-05] MEDS ORDERED: ISOVUE-370 76% 100ML VIAL As Ordered ONE (18:41)
[2022-07-05 18:47] LABS: ALBUMIN 3.8 GM/DL (3.2-5.2); ALT/SGPT 87 U/L (12-78); BILIRUBIN,DIRECT 0.1 MG/DL (0.0-0.2); BILIRUBIN,TOTAL 0.3 MG/DL (0.2-1.0); BLOOD UREA NITROGEN 8 MG/DL (7-18); CARBON DIOXIDE LEVEL 22 MEQ/L (21-32); CHLORIDE LEVEL 103 MEQ/L (98-107); CREATININE FOR GFR 0.81 MG/DL (0.70-1.30); ETHYL ALCOHOL (ETHANOL) 0.227 % (0.000-0.010); FREE T4 0.85 NG/DL (0.76-1.46); GLOMERULAR FILTRATION RATE > 60.0 (>56); GLUCOSE, FASTING 99 MG/DL (70-100); LIPASE 172 U/L (73-393); NT-PRO BNP 38 PG/ML (<125); POTASSIUM SERUM 3.5 MEQ/L (3.5-5.1); SODIUM LEVEL 135 MEQ/L (136-145); TOTAL PROTEIN 7.3 GM/DL (6.4-8.2)
[2022-07-05 18:48] LABS: CPK CREATINE PHOSPHOKINASE 121 U/L (39-308)
[2022-07-05 19:17] LABS: CPK CREATINE PHOSPHOKINASE 118 U/L (39-308)
[2022-07-05] MEDS ORDERED: NAPR-885 PO (20:54)
[2022-07-05] MEDS ORDERED: methylPREDNISolone 125MG 2ML VIAL IV ONE (20:55)
[2022-07-05 21:19] VITALS: BP 128/82
== END 2022-07-05 21:38 | disposition home or self-care (01) ==
LOC: M ED 17:18
DX: R07.9 Chest pain, unspecified (principal); F17.200 Nicotine dependence, unspecified, uncomplicated; F32.A Depression, unspecified; F41.9 Anxiety disorder, unspecified; F10.10 Alcohol abuse, uncomplicated; Z88.6 Allergy status to analgesic agent; Z86.79 Personal history of other diseases of the circulatory system; Z79.899 Other long term (current) drug therapy
CPT/HCPCS: 71045; 71275; 80047; 80048; 80076; 82077; 82550; 83690; 83880; 84439; 84443; 85025; 85610; 85730; 93005; 93041; 94760; 96374; 96375; 99284; J1885; J2930; Q9967

== ENCOUNTER 2022-08-01 18:51 | Emergency (ER) | payer OTHER ==
[~2022-08-01] VITALS: Ht 175.3 cm; Wt 63.6 kg
[~2022-08-01 18:51] MED LIST changes: +NAPR-885 PO
[2022-08-01] MEDS ORDERED: KETOROLAC TROMETHAMINE 10 MG TAB PO ONE (23:40)
[2022-08-02 00:12] VITALS: BP 115/69
== END 2022-08-02 00:24 | disposition home or self-care (01) ==
LOC: EDBD 18:51 → M ED 18:51
DX: S83.91XA Sprain of unspecified site of right knee, initial encounter (principal); W01.0XXA Fall on same level from slipping, tripping and stumbling without subsequent striking against object, initial encounter; I25.2 Old myocardial infarction; K21.9 Gastro-esophageal reflux disease without esophagitis; M54.50 Low back pain, unspecified; F41.9 Anxiety disorder, unspecified; F17.200 Nicotine dependence, unspecified, uncomplicated; Y92.9 Unspecified place or not applicable; Y93.01 Activity, walking, marching and hiking; Y99.9 Unspecified external cause status; Z88.6 Allergy status to analgesic agent

== ENCOUNTER 2022-09-25 17:02 | Inpatient (IN) | payer OTHER ==
[~2022-09-25] VITALS: Ht 172.7 cm; Wt 61.4 kg
[2022-09-25] MEDS ORDERED: GI COCKTAIL 50ML BTL(HYOSCYAMINE/MAALOX/LIDOCAINE VISCOUS)(1:3:1) PO ONE (17:25)
[2022-09-25 18:27] LABS: BASO % 0.3 % (0.0-1.0); EOS # 0.1 10^3/uL (0.0-0.5); EOS % 0.9 % (0.0-3.0); HEMOGLOBIN 13.7 g/dl (13.5-17.5); LYMPH # 2.1 10^3/uL (1.5-5.0); LYMPH % 25.9 % (24.0-44.0); MEAN CORPUSCULAR HEMOGLOBIN 33.7 pg (27.0-33.0); MEAN CORPUSCULAR HGB CONC 34.3 g/dl (32.0-36.5); MEAN CORPUSCULAR VOLUME 98.3 fl (80.0-96.0); MONO # 0.5 10^3/uL (0.0-0.8); MONO % 6.7 % (2.0-8.0); NEUTROPHILS # 5.3 10^3/uL (1.5-8.5); NEUTROPHILS % 65.9 % (36.0-66.0); PLATELET COUNT, AUTOMATED 291 10^3/uL (150-450); RED BLOOD COUNT 4.07 10^6/uL (4.30-6.10)
[2022-09-25 18:38] LABS: INR 0.99; PROTHROMBIN TIME 13.3 SECONDS (12.5-14.5)
[2022-09-25 18:39] LABS: PARTIAL THROMBOPLASTIN TIME 25.1 SECONDS (24.8-34.2)
[2022-09-25 18:53] LABS: LIPASE 41 U/L (12-53)
[2022-09-25 18:54] LABS: BILIRUBIN,DIRECT 0.2 MG/DL (<0.4); CPK CREATINE PHOSPHOKINASE 128 U/L (46-171)
[2022-09-25 18:55] LABS: ALBUMIN 3.8 G/DL (3.2-5.2); ALKALINE PHOSPHATASE 55 U/L (46-116); ALT/SGPT 16 U/L (7.0-40); AST/SGOT 30 U/L (<34); BILIRUBIN,TOTAL 0.4 MG/DL (0.3-1.2); BLOOD UREA NITROGEN 6 MG/DL (9-23); CALCIUM LEVEL 8.8 MG/DL (8.5-10.1); CARBON DIOXIDE LEVEL 27 MMOL/L (20-31); CHLORIDE LEVEL 106 MMOL/L (98-107); CK-MB VALUE MASS < 1.0 NG/ML (<3.6); CREATININE FOR GFR 0.91 MG/DL (0.70-1.30); GLOMERULAR FILTRATION RATE > 60.0 (>56); GLUCOSE, FASTING 80 MG/DL (60-100); MB/CK RELATIVE INDEX 0.78 (< OR =4); POTASSIUM SERUM 3.4 MMOL/L (3.5-5.1); SODIUM LEVEL 145 MMOL/L (136-145)
[2022-09-25 18:59] LABS: THYROID STIMULATING HORMONE 1.465 uIU/ML (0.55-4.78)
[2022-09-25] MEDS ORDERED: ISOVUE-370 76% 100ML VIAL As Ordered ONE (19:00)
[2022-09-25] MEDS ORDERED: MORPHINE 2 MG/ML 1ML VIAL IV PRN ×2 (19:05→23:10)
[2022-09-25] MEDS ORDERED: POTASSIUM CHLORIDE 10MEQ SR TABLET PO ONE (19:15)
[2022-09-25 19:30] LABS: RSV AMPLIFICATION NEGATIVE (NEGATIVE)
[2022-09-25] MEDS ORDERED: KETOROLAC 30 MG/ML 1ML VIAL IV ONE (19:40)
[2022-09-25] MEDS ORDERED: ONDANSETRON 4MG 2ML VIAL IV ONE (19:40)
[2022-09-25 20:22] LABS: CK-MB VALUE MASS < 1.0 NG/ML (<3.6)
[2022-09-25 20:25] LABS: CPK CREATINE PHOSPHOKINASE 112 U/L (46-171); MB/CK RELATIVE INDEX 0.89 (< OR =4)
[2022-09-25] MEDS ORDERED: PERCOCET 5MG/325MG TAB PO ONE (21:50)
[2022-09-25] MEDS ORDERED: HOME MED LIST COMPLETE! XX SCH (22:55)
[2022-09-25] MEDS ORDERED: ACETAMINOPHEN TAB 650MG DOSE (2X325MG) PO PRN (23:10)
[2022-09-25] MEDS ORDERED: PERCOCET 5MG/325MG TAB PO PRN (23:10)
[2022-09-25] MEDS ORDERED: CYCLOBENZAPRINE 5MG TABLET PO PRN (23:10)
[2022-09-26] MEDS: OXAZEPAM 10MG CAP PO SCH ×3 (00:40→12:34)
[2022-09-26 06:33] LABS: BASO % 0.6 % (0.0-1.0); EOS # 0.1 10^3/uL (0.0-0.5); EOS % 1.9 % (0.0-3.0); HEMATOCRIT 39.7 % (42.0-52.0); HEMOGLOBIN 13.3 g/dl (13.5-17.5); LYMPH # 1.7 10^3/uL (1.5-5.0); LYMPH % 32.3 % (24.0-44.0); MEAN CORPUSCULAR HEMOGLOBIN 33.2 pg (27.0-33.0); MEAN CORPUSCULAR HGB CONC 33.5 g/dl (32.0-36.5); MONO # 0.4 10^3/uL (0.0-0.8); NEUTROPHILS % 56.6 % (36.0-66.0); PLATELET COUNT, AUTOMATED 321 10^3/uL (150-450); RED BLOOD COUNT 4.01 10^6/uL (4.30-6.10); WHITE BLOOD COUNT 5.3 10^3/uL (4.0-10.0)
[2022-09-26 06:54] LABS: ALBUMIN 3.3 G/DL (3.2-5.2); ALKALINE PHOSPHATASE 48 U/L (46-116); ALT/SGPT 21 U/L (7.0-40); AST/SGOT 33 U/L (<34); BILIRUBIN,TOTAL 0.3 MG/DL (0.3-1.2); BLOOD UREA NITROGEN 8 MG/DL (9-23); CALCIUM LEVEL 8.3 MG/DL (8.5-10.1); CARBON DIOXIDE LEVEL 26 MMOL/L (20-31); CHLORIDE LEVEL 109 MMOL/L (98-107); CREATININE FOR GFR 0.99 MG/DL (0.70-1.30); GLOMERULAR FILTRATION RATE > 60.0 (>56); GLUCOSE, FASTING 68 MG/DL (60-100); POTASSIUM SERUM 4.5 MMOL/L (3.5-5.1); SODIUM LEVEL 147 MMOL/L (136-145)
[2022-09-26] MEDS ORDERED: LIDOCAINE 5% (LIDODERM) PATCH TD SCH (09:00)
[2022-09-26] MEDS ORDERED: NS 0.45% 1,000 ML IV ONE (09:25)
[2022-09-26 12:00] VITALS: BP 112/76
[2022-09-26 14:00] VITALS: BP 111/73
[2022-09-26 14:38] LABS: BLOOD UREA NITROGEN 8 MG/DL (9-23); CALCIUM LEVEL 8.4 MG/DL (8.5-10.1); CARBON DIOXIDE LEVEL 32 MMOL/L (20-31); CHLORIDE LEVEL 105 MMOL/L (98-107); CREATININE FOR GFR 1.02 MG/DL (0.70-1.30); GLOMERULAR FILTRATION RATE > 60.0 (>56); GLUCOSE, FASTING 86 MG/DL (60-100); POTASSIUM SERUM 4.5 MMOL/L (3.5-5.1); SODIUM LEVEL 141 MMOL/L (136-145)
[2022-09-26] MEDS ORDERED: THIA100T7 PO (15:25)
[2022-09-26] MEDS ORDERED: PERCOCET PO (15:25)
[2022-09-26] MEDS ORDERED: FOLI1TAB11 PO (15:25)
[2022-09-26 16:15] VITALS: BP 114/71
== END 2022-09-26 16:20 | disposition home or self-care (01) | DRG 351 ==
LOC: M ED 17:02 → EDBD 17:02 → M ED INP 22:44 → CANRESERV 09-26 14:35 → ENRESERV 09-26 14:35
PROVIDERS: ADMIT Family Medicine; ATTEND Internal Medicine
DX: S39.011A Strain of muscle, fascia and tendon of abdomen, initial encounter (principal); E87.6 Hypokalemia; F10.10 Alcohol abuse, uncomplicated; F17.210 Nicotine dependence, cigarettes, uncomplicated; F43.12 Post-traumatic stress disorder, chronic; Z88.5 Allergy status to narcotic agent; I25.2 Old myocardial infarction; X50.0XXA Overexertion from strenuous movement or load, initial encounter; Y92.009 Unspecified place in unspecified non-institutional (private) residence as the place of occurrence of the external cause

== ENCOUNTER → 2022-10-04 | Outpatient (REF) | payer OTHER ==
[~2022-10-04] MED LIST changes: +PERCOCET PO; +THIA100T7 PO
[2022-10-04 12:35] LABS: BASO % 0.4 % (0.0-1.0); EOS # 0.2 10^3/uL (0.0-0.5); EOS % 2.2 % (0.0-3.0); HEMATOCRIT 42.8 % (42.0-52.0); HEMOGLOBIN 14.1 g/dl (13.5-17.5); LYMPH # 1.7 10^3/uL (1.5-5.0); LYMPH % 25.7 % (24.0-44.0); MEAN CORPUSCULAR HEMOGLOBIN 33.1 pg (27.0-33.0); MEAN CORPUSCULAR HGB CONC 32.9 g/dl (32.0-36.5); MEAN CORPUSCULAR VOLUME 100.5 fl (80.0-96.0); MONO # 0.8 10^3/uL (0.0-0.8); MONO % 11.2 % (2.0-8.0); NEUTROPHILS % 59.8 % (36.0-66.0); PLATELET COUNT, AUTOMATED 300 10^3/uL (150-450); RED BLOOD COUNT 4.26 10^6/uL (4.30-6.10); WHITE BLOOD COUNT 6.8 10^3/uL (4.0-10.0)
[2022-10-04 13:00] LABS: ALBUMIN 4.1 G/DL (3.2-5.2); ALKALINE PHOSPHATASE 66 U/L (46-116); ALT/SGPT 23 U/L (7.0-40); AST/SGOT 26 U/L (<34); BILIRUBIN,TOTAL 0.5 MG/DL (0.3-1.2); BLOOD UREA NITROGEN 12 MG/DL (9-23); CALCIUM LEVEL 9.1 MG/DL (8.5-10.1); CARBON DIOXIDE LEVEL 30 MMOL/L (20-31); CHLORIDE LEVEL 102 MMOL/L (98-107); CHOLESTEROL LEVEL 195 MG/DL (<200); CHOLESTEROL RISK RATIO 2.32 (<5); CREATININE FOR GFR 1.07 MG/DL (0.70-1.30); FOLATE 10.8 NG/ML (>5.4); GLOMERULAR FILTRATION RATE > 60.0 (>56); GLUCOSE, FASTING 77 MG/DL (60-100); NON-HDL-C 111 MG/DL; POTASSIUM SERUM 4.4 MMOL/L (3.5-5.1); SODIUM LEVEL 138 MMOL/L (136-145); TOTAL PROTEIN 7.1 G/DL (5.7-8.2); TRIGLYCERIDES LEVEL 65 MG/DL (<150); VITAMIN B12 LEVEL 543 PG/ML (211-911)
== END ==
LOC: M LAB REF 12:02
PROVIDERS: ATTEND Nurse Practitioner Family
DX: F10.20 Alcohol dependence, uncomplicated (principal); I10 Essential (primary) hypertension

== ENCOUNTER 2022-11-02 21:35 | Emergency (ER) | payer OTHER ==
[~2022-11-02] VITALS: Ht 175.3 cm; Wt 66.9 kg
[~2022-11-02 21:35] MED LIST changes: -BENZ-52 PO; +BENZ1TAB5 PO
[2022-11-03] MEDS ORDERED: KETOROLAC 30 MG/ML 1ML VIAL IV ONE (00:20)
[2022-11-03] MEDS ORDERED: NS 500 ML IV ONE (00:20)
[2022-11-03 01:14] LABS: BASO % 0.6 % (0.0-1.0); EOS # 0.1 10^3/uL (0.0-0.5); EOS % 1.9 % (0.0-3.0); HEMOGLOBIN 14.3 g/dl (13.5-17.5); LYMPH # 2.2 10^3/uL (1.5-5.0); LYMPH % 31.7 % (24.0-44.0); MEAN CORPUSCULAR HEMOGLOBIN 33.3 pg (27.0-33.0); MEAN CORPUSCULAR VOLUME 97.9 fl (80.0-96.0); MONO # 0.5 10^3/uL (0.0-0.8); MONO % 6.8 % (2.0-8.0); NEUTROPHILS % 58.4 % (36.0-66.0); PLATELET COUNT, AUTOMATED 293 10^3/uL (150-450); RED BLOOD COUNT 4.29 10^6/uL (4.30-6.10); WHITE BLOOD COUNT 6.8 10^3/uL (4.0-10.0)
[2022-11-03 01:33] LABS: LIPASE 36 U/L (12-53)
[2022-11-03 01:35] LABS: ALBUMIN 3.7 G/DL (3.2-5.2); ALKALINE PHOSPHATASE 53 U/L (46-116); ALT/SGPT 18 U/L (7.0-40); AST/SGOT 10 U/L (<34); BILIRUBIN,TOTAL 0.3 MG/DL (0.3-1.2); BLOOD UREA NITROGEN 12 MG/DL (9-23); CARBON DIOXIDE LEVEL 27 MMOL/L (20-31); CHLORIDE LEVEL 108 MMOL/L (98-107); GLOMERULAR FILTRATION RATE > 60.0 (>56); GLUCOSE, FASTING 88 MG/DL (60-100); SODIUM LEVEL 143 MMOL/L (136-145); TOTAL PROTEIN 6.7 G/DL (5.7-8.2)
[2022-11-03] MEDS ORDERED: diazePAM 10MG/2ML SYRINGE IV ONE (01:50)
[2022-11-03] MEDS ORDERED: CYCL-707 PO (02:01)
[2022-11-03 02:41] VITALS: BP 109/77
== END 2022-11-03 02:42 | disposition home or self-care (01) ==
LOC: M ED 21:35 → EDBD 21:35 → M ED 11-03 02:42
DX: S39.011A Strain of muscle, fascia and tendon of abdomen, initial encounter (principal); J44.9 Chronic obstructive pulmonary disease, unspecified; F32.A Depression, unspecified; F17.200 Nicotine dependence, unspecified, uncomplicated; F10.10 Alcohol abuse, uncomplicated; Z88.6 Allergy status to analgesic agent
CPT/HCPCS: 71250; 74176; 80053; 81002; 83605; 83690; 85025; 96374; 96375; 99284; J1885; J3360

== ENCOUNTER → 2022-11-09 | Outpatient (CLI) | payer OTHER ==
[~2022-11-09] MED LIST changes: +CYCL-707 PO
== END ==
LOC: M LABSMTC 09:43
PROVIDERS: ATTEND Anesthesiology
DX: Z01.812 Encounter for preprocedural laboratory examination (principal); Z20.822 Contact with and (suspected) exposure to COVID-19

== ENCOUNTER 2022-12-12 21:42 | Emergency (ER) | payer OTHER ==
[2022-12-12 22:10] LABS: BASO # 0.1 10^3/uL (0.0-0.2); BASO % 0.5 % (0.0-1.0); EOS # 0.1 10^3/uL (0.0-0.5); EOS % 1.2 % (0.0-3.0); HEMATOCRIT 40.5 % (42.0-52.0); HEMOGLOBIN 13.9 g/dl (13.5-17.5); LYMPH % 19.4 % (24.0-44.0); MEAN CORPUSCULAR HEMOGLOBIN 33.3 pg (27.0-33.0); MEAN CORPUSCULAR HGB CONC 34.3 g/dl (32.0-36.5); MEAN CORPUSCULAR VOLUME 96.9 fl (80.0-96.0); MONO # 0.7 10^3/uL (0.0-0.8); MONO % 6.8 % (2.0-8.0); NEUTROPHILS # 7.2 10^3/uL (1.5-8.5); NEUTROPHILS % 71.4 % (36.0-66.0); PLATELET COUNT, AUTOMATED 275 10^3/uL (150-450); RED BLOOD COUNT 4.18 10^6/uL (4.30-6.10); WHITE BLOOD COUNT 10.1 10^3/uL (4.0-10.0)
[2022-12-12] MEDS ORDERED: ACETAMINOPHEN 325 MG TAB PO ONE (22:10)
[2022-12-12] MEDS ORDERED: KETOROLAC 30 MG/ML 1ML VIAL IV ONE (22:10)
[2022-12-12 22:24] LABS: INR 0.91; PROTHROMBIN TIME 12.4 SECONDS (12.5-14.5)
[2022-12-12 22:37] LABS: CK-MB VALUE MASS 1.2 NG/ML (<3.6)
[2022-12-12 22:40] LABS: MB/CK RELATIVE INDEX 0.38 (< OR =4)
[2022-12-12 23:03] LABS: CK-MB VALUE MASS 1.1 NG/ML (<3.6); LIPASE 41 U/L (12-53)
[2022-12-12 23:05] LABS: ALKALINE PHOSPHATASE 56 U/L (46-116); ALT/SGPT 17 U/L (7.0-40); AST/SGOT 27 U/L (<34); BILIRUBIN,DIRECT 0.1 MG/DL (<0.4); BILIRUBIN,TOTAL 0.3 MG/DL (0.3-1.2); BLOOD UREA NITROGEN 11 MG/DL (9-23); CALCIUM LEVEL 9.1 MG/DL (8.5-10.1); CARBON DIOXIDE LEVEL 26 MMOL/L (20-31); CHLORIDE LEVEL 104 MMOL/L (98-107); CPK CREATINE PHOSPHOKINASE 324 U/L (46-171); CREATININE FOR GFR 0.97 MG/DL (0.70-1.30); GLOMERULAR FILTRATION RATE > 60.0 (>56); GLUCOSE, FASTING 63 MG/DL (60-100); MB/CK RELATIVE INDEX 0.33 (< OR =4); POTASSIUM SERUM 3.3 MMOL/L (3.5-5.1); SODIUM LEVEL 138 MMOL/L (136-145); TOTAL PROTEIN 6.9 G/DL (5.7-8.2)
[2022-12-12 23:07] LABS: THYROID STIMULATING HORMONE 1.729 uIU/ML (0.55-4.78)
[2022-12-12 23:41] LABS: APPEARANCE, URINE CLEAR (CLEAR); BACTERIA, URINE AUTO NEGATIVE (NEGATIVE); BILIRUBIN, URINE AUTO NEGATIVE (NEGATIVE); BLOOD, URINE BLOOD NEGATIVE (NEGATIVE); COLOR, URINE COLORLESS (YELLOW); GLUCOSE, URINE (UA) AUTO NEGATIVE (NEGATIVE); KETONE, URINE AUTO NEGATIVE (NEGATIVE); LEUKOCYTE ESTERASE, URINE AUTO NEGATIVE (NEGATIVE); NITRITE, URINE AUTO NEGATIVE (NEGATIVE); PROTEIN, URINE AUTO NEGATIVE (NEGATIVE); RBC, URINE AUTO 0 /HPF (0-3); SPECIFIC GRAVITY URINE AUTO 1.001 (1.002-1.035); SQUAMOUS EPITHELIAL CELL UR AU 0 /HPF (0-6); UROBILINOGEN, URINE AUTO 0.2 mg/dL (0.0-2.0); WBC, URINE AUTO 0 /HPF (0-3)
[2022-12-12 23:45] VITALS: BP 132/80
== END 2022-12-13 00:08 | disposition home or self-care (01) ==
LOC: M ED 21:42 → EDBD 21:42 → M ED 12-13 00:08
DX: S29.011A Strain of muscle and tendon of front wall of thorax, initial encounter (principal); X50.0XXA Overexertion from strenuous movement or load, initial encounter; I25.2 Old myocardial infarction; J44.9 Chronic obstructive pulmonary disease, unspecified; F31.9 Bipolar disorder, unspecified; C34.90 Malignant neoplasm of unspecified part of unspecified bronchus or lung; F17.200 Nicotine dependence, unspecified, uncomplicated; F10.10 Alcohol abuse, uncomplicated; Z88.5 Allergy status to narcotic agent; Z79.899 Other long term (current) drug therapy
CPT/HCPCS: 71045; 80048; 80076; 81001; 82550; 82553; 83690; 83880; 84443; 85025; 85610; 87486; 87581; 87633; 87798; 93005; 93041; 94760; 96374; 99284; J1885

== ENCOUNTER 2023-01-01 19:57 | Inpatient (IN) | payer OTHER ==
[~2023-01-01] VITALS: Ht 172.7 cm; Wt 63.9 kg
[2023-01-01 20:51] LABS: HEMATOCRIT 41.3 % (42.0-52.0); HEMOGLOBIN 14.2 g/dl (13.5-17.5); MEAN CORPUSCULAR HEMOGLOBIN 33.5 pg (27.0-33.0); MEAN CORPUSCULAR HGB CONC 34.4 g/dl (32.0-36.5); MEAN CORPUSCULAR VOLUME 97.4 fl (80.0-96.0); PLATELET COUNT, AUTOMATED 258 10^3/uL (150-450); RED BLOOD COUNT 4.24 10^6/uL (4.30-6.10); WHITE BLOOD COUNT 7.1 10^3/uL (4.0-10.0)
[2023-01-01 21:21] LABS: AMPHETAMINES LEVEL URINE NEGATIVE (NEGATIVE); CANNABINOIDS URINE NEGATIVE (NEGATIVE); PHENCYCLIDINE URINE NEGATIVE (NEGATIVE)
[2023-01-01 21:22] LABS: BARBITURATES URINE NEGATIVE (NEGATIVE); BENZODIAZEPINES URINE NEGATIVE (NEGATIVE); COCAINE METABOLITE URINE NEGATIVE (NEGATIVE); METHADONE URINE NEGATIVE (NEGATIVE); OPIATES URINE NEGATIVE (NEGATIVE)
[2023-01-01 21:24] LABS: ETHYL ALCOHOL (ETHANOL) 0.298 % (0.000-0.010)
[2023-01-01 21:26] LABS: ACETAMINOPHEN LEVEL < 2.0 UG/ML (10.0-20.0); ALBUMIN 3.8 G/DL (3.2-5.2); ALKALINE PHOSPHATASE 69 U/L (46-116); ALT/SGPT 19 U/L (7.0-40); AST/SGOT 26 U/L (<34); BILIRUBIN,DIRECT < 0.1 MG/DL (<0.4); BILIRUBIN,TOTAL 0.2 MG/DL (0.3-1.2); BLOOD UREA NITROGEN 7 MG/DL (9-23); CALCIUM LEVEL 8.4 MG/DL (8.5-10.1); CARBON DIOXIDE LEVEL 26 MMOL/L (20-31); CHLORIDE LEVEL 110 MMOL/L (98-107); CREATININE FOR GFR 0.93 MG/DL (0.70-1.30); GLOMERULAR FILTRATION RATE > 60.0 (>56); GLUCOSE, FASTING 77 MG/DL (60-100); POTASSIUM SERUM 3.8 MMOL/L (3.5-5.1); SALICYLATE LEVEL < 3.0 MG/DL (<30); SODIUM LEVEL 145 MMOL/L (136-145); TOTAL PROTEIN 6.5 G/DL (5.7-8.2)
[2023-01-01 21:28] LABS: THYROID STIMULATING HORMONE 0.881 uIU/ML (0.55-4.78)
[2023-01-02] MEDS ORDERED: ESCITALOPRAM OXALATE 10 MG TAB (LEXAPRO) PO SCH (09:00)
[2023-01-02] MEDS ORDERED: HOME MED LIST COMPLETE! XX SCH (09:25)
[2023-01-02] MEDS ORDERED: IBUPROFEN 400MG TAB PO PRN (13:30)
[2023-01-02] MEDS ORDERED: LORazepam 2 MG TAB PO PRN (13:30)
[2023-01-02] MEDS ORDERED: MOM 30ML SUSPENSION UDC PO PRN (13:30)
[2023-01-02] MEDS ORDERED: MAALOX 30 ML SUSP *UDC PO PRN (13:30)
[2023-01-02] MEDS ORDERED: traZODone 50 MG TAB PO PRN (13:30)
[2023-01-02 15:10] VITALS: BP 136/82
[2023-01-02 15:43] VITALS: BP 136/82
[2023-01-02] MEDS: NICOTINE 21MG/24HR 1 EA TRANSDERMAL TD SCH (16:20)
[2023-01-02] MEDS: FOLIC ACID 1MG TAB PO SCH (16:20)
[2023-01-02] MEDS: MULTIVITAMINS/MINERALS THERAP 1 TAB PO SCH (16:20)
[2023-01-02] MEDS: THIAMINE 100 MG TAB PO SCH ×2 (16:20→21:00)
[2023-01-02 20:40] VITALS: BP 130/81
[2023-01-03 06:15] VITALS: BP 134/76
[2023-01-03] MEDS ORDERED: FOLI1TAB11 PO (06:25)
[2023-01-03] MEDS ORDERED: NICO21PAT TD (06:25)
[2023-01-03] MEDS ORDERED: ARIP1TAB6 PO (06:25)
[2023-01-03] MEDS ORDERED: THIA100TA PO (06:25)
[2023-01-03] MEDS ORDERED: VITMTA PO (06:25)
[2023-01-03] MEDS ORDERED: LEXA5TAB13 PO (06:25)
[2023-01-03 07:57] VITALS: BP 134/76
[2023-01-03] MEDS: ESCITALOPRAM OXALATE 5MG TABLET (LEXAPRO) PO SCH (08:10)
[2023-01-03] MEDS: NICOTINE 21MG/24HR 1 EA TRANSDERMAL TD SCH (08:11)
[2023-01-03] MEDS: FOLIC ACID 1MG TAB PO SCH (08:11)
[2023-01-03] MEDS: THIAMINE 100 MG TAB PO SCH ×2 (08:11→21:00)
[2023-01-03] MEDS: MULTIVITAMINS/MINERALS THERAP 1 TAB PO SCH (08:11)
[2023-01-03 16:00] VITALS: BP 127/84
[2023-01-03 18:56] VITALS: BP 127/84
[2023-01-03 22:00] VITALS: BP 0/0
[2023-01-04 06:06] VITALS: BP 122/74
[2023-01-04] MEDS: MULTIVITAMINS/MINERALS THERAP 1 TAB PO SCH (07:51)
[2023-01-04] MEDS: THIAMINE 100 MG TAB PO SCH (07:51)
[2023-01-04] MEDS: FOLIC ACID 1MG TAB PO SCH (07:51)
[2023-01-04] MEDS: NICOTINE 21MG/24HR 1 EA TRANSDERMAL TD SCH (07:51)
[2023-01-04] MEDS: ESCITALOPRAM OXALATE 5MG TABLET (LEXAPRO) PO SCH (07:53)
[2023-01-04] MEDS ORDERED: ASPIRIN 81MG CHEW TABLET PO SCH (09:00)
[2023-01-04] MEDS ORDERED: PRAVASTATIN 20 MG TAB PO SCH (09:00)
== END 2023-01-04 13:03 | disposition home or self-care (01) | DRG 753 ==
LOC: M ED 19:57 → M ED INP 01-02 13:28 → M PSY 01-02 15:41
PROVIDERS: ADMIT Student in an Organized Health Care Education/Training Program; ATTEND Psychiatry & Neurology Psychiatry
DX: F31.9 Bipolar disorder, unspecified (principal); F10.129 Alcohol abuse with intoxication, unspecified; F17.210 Nicotine dependence, cigarettes, uncomplicated; R45.850 Homicidal ideations; F43.10 Post-traumatic stress disorder, unspecified; I10 Essential (primary) hypertension; I25.2 Old myocardial infarction; I25.10 Atherosclerotic heart disease of native coronary artery without angina pectoris; Z88.5 Allergy status to narcotic agent; Z79.899 Other long term (current) drug therapy; Z20.822 Contact with and (suspected) exposure to COVID-19

== ENCOUNTER 2023-02-16 22:21 | Emergency (ER) | payer OTHER ==
[~2023-02-16] VITALS: Ht 172.7 cm; Wt 65.9 kg
[~2023-02-16 22:21] MED LIST changes: +LEXA5TAB13 PO; +THIA100TA PO; +VITMTA PO
[2023-02-17] MEDS ORDERED: KETOROLAC 30 MG/ML 1ML VIAL IV ONE (00:40)
[2023-02-17] MEDS ORDERED: METOCLOPRAMIDE INJ 10MG/2ML VIAL IV ONE (00:45)
[2023-02-17] MEDS ORDERED: diphenhydrAMINE 50MG/ML VIAL IV ONE (00:45)
[2023-02-17] MEDS ORDERED: ACETAMINOPHEN 500 MG TAB PO ONE (01:50)
[2023-02-17] MEDS ORDERED: NS 1,000 ML IV ONE (01:55)
[2023-02-17 03:17] VITALS: BP 113/74
== END 2023-02-17 03:39 | disposition home or self-care (01) ==
LOC: M ED 22:21 → EDBD 22:21 → M ED 02-17 03:39
DX: R51.9 Headache, unspecified (principal); I25.2 Old myocardial infarction; F10.10 Alcohol abuse, uncomplicated; Z88.5 Allergy status to narcotic agent; Z79.899 Other long term (current) drug therapy
CPT/HCPCS: 70450; 80047; 96361; 96374; 99284; J1200; J1885; J2765

== ENCOUNTER 2023-04-23 02:53 | Emergency (ER) | payer OTHER ==
[~2023-04-23] VITALS: Ht 172.7 cm; Wt 62.2 kg
[2023-04-23 03:26] LABS: BASO % 0.5 % (0.0-1.0); EOS # 0.2 10^3/uL (0.0-0.5); EOS % 1.8 % (0.0-3.0); HEMATOCRIT 40.6 % (42.0-52.0); HEMOGLOBIN 14.3 g/dl (13.5-17.5); LYMPH # 2.9 10^3/uL (1.5-5.0); LYMPH % 34.6 % (24.0-44.0); MEAN CORPUSCULAR HEMOGLOBIN 33.2 pg (27.0-33.0); MEAN CORPUSCULAR HGB CONC 35.2 g/dl (32.0-36.5); MEAN CORPUSCULAR VOLUME 94.2 fl (80.0-96.0); MONO # 0.7 10^3/uL (0.0-0.8); MONO % 7.8 % (2.0-8.0); NEUTROPHILS # 4.6 10^3/uL (1.5-8.5); NEUTROPHILS % 54.9 % (36.0-66.0); PLATELET COUNT, AUTOMATED 262 10^3/uL (150-450); RED BLOOD COUNT 4.31 10^6/uL (4.30-6.10); WHITE BLOOD COUNT 8.4 10^3/uL (4.0-10.0)
[2023-04-23] MEDS ORDERED: KETOROLAC 30 MG/ML 1ML VIAL IV ONE (03:45)
[2023-04-23 03:55] LABS: ETHYL ALCOHOL (ETHANOL) 0.264 % (0.000-0.010); LIPASE 33 U/L (12-53)
[2023-04-23 03:57] LABS: ALBUMIN 3.9 G/DL (3.2-5.2); ALKALINE PHOSPHATASE 51 U/L (46-116); ALT/SGPT 12 U/L (7.0-40); AST/SGOT 13 U/L (<34); BILIRUBIN,DIRECT 0.1 MG/DL (<0.4); BILIRUBIN,TOTAL 0.3 MG/DL (0.3-1.2); BLOOD UREA NITROGEN 8 MG/DL (9-23); CALCIUM LEVEL 8.2 MG/DL (8.5-10.1); CARBON DIOXIDE LEVEL 23 MMOL/L (20-31); CHLORIDE LEVEL 98 MMOL/L (98-107); CK-MB VALUE MASS < 1.0 NG/ML (<3.6); CPK CREATINE PHOSPHOKINASE 116 U/L (46-171); CREATININE FOR GFR 1.06 MG/DL (0.70-1.30); GLOMERULAR FILTRATION RATE > 60.0 (>56); GLUCOSE, FASTING 107 MG/DL (60-100); MB/CK RELATIVE INDEX 0.86 (< OR =4); POTASSIUM SERUM 3.2 MMOL/L (3.5-5.1); SODIUM LEVEL 134 MMOL/L (136-145); TOTAL PROTEIN 6.5 G/DL (5.7-8.2)
[2023-04-23 06:04] LABS: CK-MB VALUE MASS < 1.0 NG/ML (<3.6)
[2023-04-23 06:05] LABS: CPK CREATINE PHOSPHOKINASE 110 U/L (46-171)
[2023-04-23] MEDS ORDERED: LIDOCAINE 5% (LIDODERM) PATCH TD ONE (06:30)
[2023-04-23] MEDS ORDERED: ASPE4PAD TOP (07:57)
[2023-04-23 07:59] VITALS: BP 98/55; TEMP 97; O2SAT 95
== END 2023-04-23 08:05 | disposition home or self-care (01) ==
LOC: M ED 02:53
DX: R07.9 Chest pain, unspecified (principal); F10.129 Alcohol abuse with intoxication, unspecified; W19.XXXA Unspecified fall, initial encounter; I25.2 Old myocardial infarction; J44.9 Chronic obstructive pulmonary disease, unspecified; K76.0 Fatty (change of) liver, not elsewhere classified; F31.9 Bipolar disorder, unspecified; C34.90 Malignant neoplasm of unspecified part of unspecified bronchus or lung; F17.200 Nicotine dependence, unspecified, uncomplicated; Z88.5 Allergy status to narcotic agent; Z79.899 Other long term (current) drug therapy
CPT/HCPCS: 71045; 71100; 80048; 80076; 82077; 82550; 82553; 83690; 85025; 93005; 93041; 94760; 96374; 99285; J1885

== ENCOUNTER 2023-05-27 22:21 | Emergency (ER) | payer OTHER ==
[~2023-05-27] VITALS: Ht 175.3 cm; Wt 68.2 kg
[~2023-05-27 22:21] MED LIST changes: +ASPE4PAD TOP; +CELE0.09 PO; -CELE1CAP9 PO
[2023-05-27] MEDS ORDERED: ACETAMINOPHEN 500 MG TAB PO ONE (23:55)
[2023-05-28] MEDS ORDERED: LIDOCAINE 4% CREAM 5GM (LMX4) TOP ONE (01:10)
[2023-05-28] MEDS ORDERED: GABAPENTIN 300 MG CAP PO ONE (01:10)
[2023-05-28 01:42] LABS: BASO % 0.5 % (0.0-1.0); EOS # 0.2 10^3/uL (0.0-0.5); EOS % 2.5 % (0.0-3.0); HEMATOCRIT 40.1 % (42.0-52.0); HEMOGLOBIN 13.8 g/dl (13.5-17.5); LYMPH # 2.5 10^3/uL (1.5-5.0); LYMPH % 32.8 % (24.0-44.0); MEAN CORPUSCULAR HEMOGLOBIN 33.3 pg (27.0-33.0); MEAN CORPUSCULAR HGB CONC 34.4 g/dl (32.0-36.5); MEAN CORPUSCULAR VOLUME 96.6 fl (80.0-96.0); MONO # 0.6 10^3/uL (0.0-0.8); MONO % 8.1 % (2.0-8.0); NEUTROPHILS # 4.2 10^3/uL (1.5-8.5); NEUTROPHILS % 55.7 % (36.0-66.0); PLATELET COUNT, AUTOMATED 260 10^3/uL (150-450); RED BLOOD COUNT 4.15 10^6/uL (4.30-6.10); WHITE BLOOD COUNT 7.5 10^3/uL (4.0-10.0)
[2023-05-28 01:54] LABS: ERYTHROCYTE SEDIMENTATION RATE 6 mm/hr (0-20)
[2023-05-28 02:00] LABS: C REACTIVE PROTEIN QUANTITATIV < 0.40 MG/DL (<1.0)
[2023-05-28 02:01] LABS: BLOOD UREA NITROGEN 11 MG/DL (9-23); CALCIUM LEVEL 8.6 MG/DL (8.5-10.1); CARBON DIOXIDE LEVEL 26 MMOL/L (20-31); CHLORIDE LEVEL 105 MMOL/L (98-107); CREATININE FOR GFR 1.01 MG/DL (0.70-1.30); GLOMERULAR FILTRATION RATE > 60.0 (>56); GLUCOSE, FASTING 163 MG/DL (60-100); POTASSIUM SERUM 3.9 MMOL/L (3.5-5.1); SODIUM LEVEL 139 MMOL/L (136-145)
[2023-05-28 02:15] LABS: URIC ACID 6.6 MG/DL (3.7-9.2)
[2023-05-28] MEDS ORDERED: LIDO1CRE2 TOP (02:43)
[2023-05-28] MEDS ORDERED: CANEMIS41 XX (02:43)
[2023-05-28] MEDS ORDERED: TRAM50TA2 PO (02:43)
[2023-05-28 02:55] VITALS: BP 113/64; TEMP 98.9; O2SAT 96
== END 2023-05-28 02:55 | disposition home or self-care (01) ==
LOC: M ED 22:21
DX: M79.672 Pain in left foot (principal); I25.2 Old myocardial infarction; J44.9 Chronic obstructive pulmonary disease, unspecified; F17.200 Nicotine dependence, unspecified, uncomplicated; Z85.118 Personal history of other malignant neoplasm of bronchus and lung; Z88.5 Allergy status to narcotic agent; Z79.891 Long term (current) use of opiate analgesic; Z79.899 Other long term (current) drug therapy

== ENCOUNTER → 2023-08-02 | Outpatient (CLI) | payer OTHER ==
[~2023-08-02] MED LIST changes: +CANEMIS41 XX; -DISU1TAB6 PO; +DISU1TAB7 PO; +LIDO1CRE2 TOP; +TRAM50TA2 PO
== END ==
LOC: M RAD 09:50
PROVIDERS: ATTEND Nurse Practitioner Family
DX: Z12.2 Encounter for screening for malignant neoplasm of respiratory organs (principal); F17.200 Nicotine dependence, unspecified, uncomplicated

== ENCOUNTER 2023-08-24 20:50 | Emergency (ER) | payer OTHER ==
[2023-08-24 20:50] VITALS: TEMP 98.6
[2023-08-24] MEDS ORDERED: FLUORESCEIN OPHTH 1MG STRIP OU ONE (22:30)
[2023-08-24] MEDS ORDERED: TETRACAINE 0.5% OPHTH SOLN 4ML OU ONE (22:30)
[2023-08-24 22:59] LABS: BASO # 0.1 10^3/uL (0.0-0.2); BASO % 0.5 % (0.0-1.0); EOS # 0.2 10^3/uL (0.0-0.5); EOS % 2.5 % (0.0-3.0); HEMATOCRIT 40.7 % (42.0-52.0); LYMPH # 2.8 10^3/uL (1.5-5.0); LYMPH % 30.1 % (24.0-44.0); MEAN CORPUSCULAR HEMOGLOBIN 32.9 pg (27.0-33.0); MEAN CORPUSCULAR HGB CONC 34.4 g/dl (32.0-36.5); MEAN CORPUSCULAR VOLUME 95.5 fl (80.0-96.0); MONO # 0.6 10^3/uL (0.0-0.8); MONO % 6.2 % (2.0-8.0); NEUTROPHILS # 5.6 10^3/uL (1.5-8.5); NEUTROPHILS % 60.4 % (36.0-66.0); PLATELET COUNT, AUTOMATED 260 10^3/uL (150-450); RED BLOOD COUNT 4.26 10^6/uL (4.30-6.10); WHITE BLOOD COUNT 9.3 10^3/uL (4.0-10.0)
[2023-08-24 23:20] LABS: BLOOD UREA NITROGEN 11 MG/DL (9-23); CALCIUM LEVEL 8.9 MG/DL (8.5-10.1); CARBON DIOXIDE LEVEL 27 MMOL/L (20-31); CHLORIDE LEVEL 106 MMOL/L (98-107); CK-MB VALUE MASS < 1.0 NG/ML (<3.6); CPK CREATINE PHOSPHOKINASE 118 U/L (46-171); CREATININE FOR GFR 1.05 MG/DL (0.70-1.30); GLOMERULAR FILTRATION RATE > 60.0 (>56); GLUCOSE, FASTING 84 MG/DL (60-100); MB/CK RELATIVE INDEX 0.84 (< OR =4); POTASSIUM SERUM 3.9 MMOL/L (3.5-5.1); SODIUM LEVEL 142 MMOL/L (136-145)
[2023-08-25 06:15] VITALS: O2SAT 92
[2023-08-25 06:20] VITALS: BP 113/73
== END 2023-08-25 06:46 | disposition home or self-care (01) ==
LOC: M ED 20:50
DX: H53.8 Other visual disturbances (principal); F31.9 Bipolar disorder, unspecified; F43.10 Post-traumatic stress disorder, unspecified; I25.2 Old myocardial infarction; F10.10 Alcohol abuse, uncomplicated; F17.200 Nicotine dependence, unspecified, uncomplicated; Z88.5 Allergy status to narcotic agent; Z86.79 Personal history of other diseases of the circulatory system; Z79.899 Other long term (current) drug therapy; Z79.891 Long term (current) use of opiate analgesic

== ENCOUNTER 2023-09-09 14:16 | Emergency (ER) | payer OTHER ==
[~2023-09-09] VITALS: Ht 172.7 cm; Wt 65.7 kg
[2023-09-09] MEDS ORDERED: AMPICILLIN SOD/SULBACTAM SOD 3 GM in D5W MINI-BAG PLUS 100 ML IV ONE (17:20)
[2023-09-09] MEDS ORDERED: KETOROLAC 30 MG/ML 1ML VIAL IV ONE (17:20)
[2023-09-09 18:10] LABS: BASO % 0.3 % (0.0-1.0); EOS # 0.1 10^3/uL (0.0-0.5); EOS % 0.5 % (0.0-3.0); HEMATOCRIT 40.6 % (42.0-52.0); HEMOGLOBIN 13.9 g/dl (13.5-17.5); LYMPH # 1.2 10^3/uL (1.5-5.0); LYMPH % 10.6 % (24.0-44.0); MEAN CORPUSCULAR HEMOGLOBIN 32.6 pg (27.0-33.0); MEAN CORPUSCULAR HGB CONC 34.2 g/dl (32.0-36.5); MEAN CORPUSCULAR VOLUME 95.1 fl (80.0-96.0); MONO # 0.8 10^3/uL (0.0-0.8); MONO % 7.6 % (2.0-8.0); NEUTROPHILS # 8.8 10^3/uL (1.5-8.5); NEUTROPHILS % 80.6 % (36.0-66.0); PLATELET COUNT, AUTOMATED 241 10^3/uL (150-450); RED BLOOD COUNT 4.27 10^6/uL (4.30-6.10); WHITE BLOOD COUNT 10.9 10^3/uL (4.0-10.0)
[2023-09-09 18:17] LABS: ERYTHROCYTE SEDIMENTATION RATE 19 mm/hr (0-20)
[2023-09-09 18:42] LABS: BLOOD UREA NITROGEN 11 MG/DL (9-23); CALCIUM LEVEL 9.1 MG/DL (8.5-10.1); CARBON DIOXIDE LEVEL 25 MMOL/L (20-31); CHLORIDE LEVEL 105 MMOL/L (98-107); CREATININE FOR GFR 0.91 MG/DL (0.70-1.30); GLOMERULAR FILTRATION RATE > 60.0 (>56); GLUCOSE, FASTING 82 MG/DL (60-100); POTASSIUM SERUM 3.8 MMOL/L (3.5-5.1); SODIUM LEVEL 139 MMOL/L (136-145)
[2023-09-09 19:20] VITALS: BP 115/75; TEMP 98.5; O2SAT 96
[2023-09-09] MEDS ORDERED: BOOSTRIX VACCINE (TETANUS/DIPHTH/ACEL. PERTUSSIS) 0.5ML SYR IM ONE (19:40)
[2023-09-09] MEDS ORDERED: IBUP-1022 PO (19:40)
[2023-09-09] MEDS ORDERED: AMOX875T2 PO (19:40)
== END 2023-09-09 20:17 | disposition home or self-care (01) ==
LOC: M ED 14:16
DX: L03.113 Cellulitis of right upper limb (principal); W55.01XA Bitten by cat, initial encounter; I25.2 Old myocardial infarction; J44.9 Chronic obstructive pulmonary disease, unspecified; K21.9 Gastro-esophageal reflux disease without esophagitis; Z88.5 Allergy status to narcotic agent; Z79.2 Long term (current) use of antibiotics; Z79.891 Long term (current) use of opiate analgesic; Z79.899 Other long term (current) drug therapy
CPT/HCPCS: 36415; 73100; 73120; 80048; 83605; 85025; 85652; 86140; 87040; 87077; 87186; 90471; 90715; 96365; 96375; 99284; J0295; J1885

== ENCOUNTER 2023-09-11 12:14 | Emergency (ER) | payer OTHER ==
[~2023-09-11] VITALS: Ht 172.7 cm; Wt 67.0 kg
[~2023-09-11 12:14] MED LIST changes: +AMOX875T2 PO
[2023-09-11 12:15] VITALS: BP 122/81; TEMP 98.1; O2SAT 97
== END 2023-09-11 12:53 | disposition home or self-care (01) ==
LOC: M ED 12:14
DX: Z48.00 Encounter for change or removal of nonsurgical wound dressing (principal); Z88.5 Allergy status to narcotic agent; Z79.2 Long term (current) use of antibiotics; Z79.891 Long term (current) use of opiate analgesic; Z79.899 Other long term (current) drug therapy

== ENCOUNTER → 2023-11-07 | Outpatient (CLI) | payer OTHER | LOC: M PAIN 13:00 | PROVIDERS: ATTEND Nurse Practitioner Family | DX: M79.18 Myalgia, other site (principal); M54.50 Low back pain, unspecified; G89.29 Other chronic pain; F17.210 Nicotine dependence, cigarettes, uncomplicated; Z79.899 Other long term (current) drug therapy; Z88.5 Allergy status to narcotic agent ==

== ENCOUNTER 2023-12-10 10:35 | Day surgery (SDC) | payer OTHER ==
[~2023-12-10] VITALS: Ht 175.3 cm; Wt 68.0 kg
[2023-12-10] MEDS: PROPARACAINE 0.5% OPHTH SOL 15ML OD ONE (11:40)
[2023-12-10] MEDS ORDERED: fentaNYL 100 MCG/2 ML INJECTION As Ordered ONE (11:47)
[2023-12-10] MEDS ORDERED: MIDAZOLAM INJ 2MG/2ML VIAL As Ordered ONE (11:47)
[2023-12-10] MEDS: LIDOCAINE 1% SDV 5ML VIAL As Ordered ONE (11:52)
[2023-12-10] MEDS: BSS IRR 500ML/OMIDRIA 4ML IRR BAG (OR ONLY) As Ordered ONE (11:52)
[2023-12-10] MEDS: TRYPAN BLUE 0.06 % 2.25 ML OPHTH SYR (VISIONBLUE) As Ordered ONE (11:53)
[2023-12-10] MEDS: CEFUROXIME 1MG/0.1ML INTRACAMERAL INJ As Ordered ONE (11:53)
[2023-12-10] MEDS: DUOVISC (0.50ML VISCOAT/0.85ML PROVISC) OPHTH KIT As Ordered ONE (12:00)
[2023-12-10] MEDS: PHENYLEPHRINE 2.5% OPHTH SOL 2ML OD SCH (12:03)
[2023-12-10] MEDS: OFLOXACIN 0.3 % (OCUFLOX) OPTH SOL 5ML OD SCH (12:03)
[2023-12-10] MEDS: TROPICAMIDE 1% OPHTH SOLN 15ML OD SCH (12:03)
[2023-12-10] MEDS: ATROPINE SULFATE 1% OPHTH SOLN 2ML BTL OD SCH (12:03)
[2023-12-10] MEDS: CARBACHOL 0.01% OPHTH SOLN 1.5ML VIAL As Ordered ONE (12:05)
[2023-12-10 12:27] VITALS: BP 118/81; TEMP 97; O2SAT 94
== END 2023-12-10 12:43 | disposition home or self-care (01) ==
LOC: M SDC 10:35
PROVIDERS: ATTEND Ophthalmology
DX: H25.11 Age-related nuclear cataract, right eye (principal); I25.2 Old myocardial infarction; F17.218 Nicotine dependence, cigarettes, with other nicotine-induced disorders; Z88.5 Allergy status to narcotic agent; J44.9 Chronic obstructive pulmonary disease, unspecified; Z79.899 Other long term (current) drug therapy; F31.9 Bipolar disorder, unspecified; F32.A Depression, unspecified; F41.9 Anxiety disorder, unspecified
CPT/HCPCS: 66984; J0697; J1097; J2250; J3010

== ENCOUNTER → 2024-01-14 | Outpatient (REF) | payer OTHER ==
[2024-01-14 18:40] LABS: BASO % 0.5 % (0.0-1.0); EOS # 0.1 10^3/uL (0.0-0.5); EOS % 1.9 % (0.0-3.0); HEMATOCRIT 45.7 % (42.0-52.0); HEMOGLOBIN 15.6 g/dl (13.5-17.5); LYMPH # 1.8 10^3/uL (1.5-5.0); LYMPH % 27.1 % (24.0-44.0); MEAN CORPUSCULAR HEMOGLOBIN 33.5 pg (27.0-33.0); MEAN CORPUSCULAR HGB CONC 34.1 g/dl (32.0-36.5); MEAN CORPUSCULAR VOLUME 98.3 fl (80.0-96.0); MONO # 0.6 10^3/uL (0.0-0.8); MONO % 9.5 % (2.0-8.0); NEUTROPHILS # 3.9 10^3/uL (1.5-8.5); NEUTROPHILS % 60.7 % (36.0-66.0); PLATELET COUNT, AUTOMATED 266 10^3/uL (150-450); RED BLOOD COUNT 4.65 10^6/uL (4.30-6.10); WHITE BLOOD COUNT 6.5 10^3/uL (4.0-10.0)
[2024-01-14 18:58] LABS: HEMOGLOBIN A1c 4.9 % (4.0-6.0)
[2024-01-14 19:01] LABS: ALBUMIN 4.2 G/DL (3.2-5.2); ALKALINE PHOSPHATASE 69 U/L (46-116); ALT/SGPT 44 U/L (7.0-40); AST/SGOT 43 U/L (<34); BILIRUBIN,DIRECT 0.2 MG/DL (<0.4); BILIRUBIN,TOTAL 0.4 MG/DL (0.3-1.2); BLOOD UREA NITROGEN 10 MG/DL (9-23); CALCIUM LEVEL 9.5 MG/DL (8.5-10.1); CARBON DIOXIDE LEVEL 29 MMOL/L (20-31); CHLORIDE LEVEL 102 MMOL/L (98-107); CREATININE FOR GFR 1.07 MG/DL (0.70-1.30); GLOMERULAR FILTRATION RATE > 60.0 (>56); GLUCOSE, FASTING 72 MG/DL (60-100); POTASSIUM SERUM 4.6 MMOL/L (3.5-5.1); SODIUM LEVEL 137 MMOL/L (136-145)
[2024-01-14 19:03] LABS: THYROID STIMULATING HORMONE 1.917 uIU/ML (0.55-4.78)
== END ==
LOC: M LAB REF 17:38
PROVIDERS: ATTEND Nurse Practitioner Family
DX: Z01.818 Encounter for other preprocedural examination (principal); K76.0 Fatty (change of) liver, not elsewhere classified; Z79.899 Other long term (current) drug therapy; Z68.22 Body mass index [BMI] 22.0-22.9, adult

== ENCOUNTER → 2024-01-27 | Outpatient (CLI) | payer OTHER | LOC: M RAD 14:19 | PROVIDERS: ATTEND Nurse Practitioner Family | DX: M54.50 Low back pain, unspecified (principal) ==

== ENCOUNTER 2024-02-08 21:27 | Emergency (ER) | payer OTHER ==
[~2024-02-08] VITALS: Ht 172.7 cm; Wt 63.6 kg
[2024-02-09] MEDS: KETOROLAC 30 MG/ML 1ML VIAL IM ONE (01:05)
[2024-02-09] MEDS: LIDOCAINE 5% (LIDODERM) PATCH TD ONE (01:30)
[2024-02-09 02:31] VITALS: BP 118/72; TEMP 98.2; O2SAT 97
== END 2024-02-09 02:30 | disposition home or self-care (01) ==
LOC: EDBD 21:27 → M ED 21:27
DX: M54.50 Low back pain, unspecified (principal); I25.2 Old myocardial infarction; K76.0 Fatty (change of) liver, not elsewhere classified; J44.9 Chronic obstructive pulmonary disease, unspecified; F32.A Depression, unspecified; F31.9 Bipolar disorder, unspecified; F17.200 Nicotine dependence, unspecified, uncomplicated; F10.10 Alcohol abuse, uncomplicated; Z86.79 Personal history of other diseases of the circulatory system; Z88.5 Allergy status to narcotic agent; Z79.899 Other long term (current) drug therapy
CPT/HCPCS: 72131; 80047; 96372; 99284; J1885

== ENCOUNTER 2024-02-13 22:53 | Emergency (ER) | payer OTHER ==
[~2024-02-13] VITALS: Ht 175.3 cm; Wt 68.0 kg
[2024-02-13 23:37] LABS: HEMATOCRIT 39.6 % (42.0-52.0); HEMOGLOBIN 13.9 g/dl (13.5-17.5); MEAN CORPUSCULAR HEMOGLOBIN 33.3 pg (27.0-33.0); MEAN CORPUSCULAR HGB CONC 35.1 g/dl (32.0-36.5); MEAN CORPUSCULAR VOLUME 94.7 fl (80.0-96.0); PLATELET COUNT, AUTOMATED 196 10^3/uL (150-450); RED BLOOD COUNT 4.18 10^6/uL (4.30-6.10); WHITE BLOOD COUNT 6.1 10^3/uL (4.0-10.0)
[2024-02-14 00:02] LABS: AMPHETAMINES LEVEL URINE NEGATIVE (NEGATIVE); BARBITURATES URINE NEGATIVE (NEGATIVE); CANNABINOIDS URINE NEGATIVE (NEGATIVE); COCAINE METABOLITE URINE NEGATIVE (NEGATIVE); METHADONE URINE NEGATIVE (NEGATIVE); OPIATES URINE NEGATIVE (NEGATIVE); PHENCYCLIDINE URINE NEGATIVE (NEGATIVE)
[2024-02-14 00:04] LABS: BENZODIAZEPINES URINE NEGATIVE (NEGATIVE)
[2024-02-14 00:05] LABS: ETHYL ALCOHOL (ETHANOL) 0.286 % (0.000-0.010)
[2024-02-14 00:06] LABS: ALKALINE PHOSPHATASE 62 U/L (46-116); ALT/SGPT 86 U/L (7.0-40); AST/SGOT 99 U/L (<34); BILIRUBIN,DIRECT 0.3 MG/DL (<0.4); BILIRUBIN,TOTAL 0.6 MG/DL (0.3-1.2); BLOOD UREA NITROGEN 9 MG/DL (9-23); CALCIUM LEVEL 9.2 MG/DL (8.5-10.1); CARBON DIOXIDE LEVEL 28 MMOL/L (20-31); CHLORIDE LEVEL 102 MMOL/L (98-107); CREATININE FOR GFR 0.89 MG/DL (0.70-1.30); GLOMERULAR FILTRATION RATE > 60.0 (>56); GLUCOSE, FASTING 109 MG/DL (60-100); POTASSIUM SERUM 3.4 MMOL/L (3.5-5.1); SALICYLATE LEVEL < 3.0 MG/DL (<30); SODIUM LEVEL 138 MMOL/L (136-145); TOTAL PROTEIN 6.5 G/DL (5.7-8.2)
[2024-02-14 00:09] LABS: THYROID STIMULATING HORMONE 3.558 uIU/ML (0.55-4.78)
[2024-02-14] MEDS ORDERED: diphenhydrAMINE 50MG/ML VIAL As Ordered ONE (01:59)
[2024-02-14] MEDS ORDERED: HALOPERIDOL LACTATE 5MG/ML VIAL As Ordered ONE (01:59)
[2024-02-14] MEDS ORDERED: LORazepam 2 MG/ML 1ML VIAL As Ordered ONE (01:59)
[2024-02-14] MEDS: HALOPERIDOL LACTATE 5MG/ML VIAL IM ONE (02:06)
[2024-02-14] MEDS: diphenhydrAMINE 50MG/ML VIAL IM ONE (02:06)
[2024-02-14] MEDS: LORazepam 2 MG/ML 1ML VIAL IM ONE (02:06)
[2024-02-14] MEDS ORDERED: PRED1SUS2 OD (09:16)
[2024-02-14] MEDS ORDERED: HOME MED LIST COMPLETE! XX SCH (09:20)
[2024-02-14 10:59] VITALS: BP 122/87; TEMP 99.3; O2SAT 96
== END 2024-02-14 11:02 | disposition home or self-care (01) ==
LOC: M ED 22:53
DX: F10.129 Alcohol abuse with intoxication, unspecified (principal); J44.9 Chronic obstructive pulmonary disease, unspecified; F31.9 Bipolar disorder, unspecified; F20.9 Schizophrenia, unspecified; I25.2 Old myocardial infarction; F17.200 Nicotine dependence, unspecified, uncomplicated; Z88.5 Allergy status to narcotic agent; Z79.899 Other long term (current) drug therapy; Z79.52 Long term (current) use of systemic steroids
CPT/HCPCS: 80048; 80076; 80143; 80307; 82077; 84443; 85027; 96372; 99285; J1200; J1630; J2060

== ENCOUNTER 2024-02-18 18:31 | Inpatient (IN) | payer OTHER ==
[~2024-02-18] VITALS: Ht 175.3 cm; Wt 68.0 kg
[~2024-02-18 18:31] MED LIST changes: +PRED1SUS2 OD
[2024-02-18 19:36] LABS: HEMATOCRIT 40.7 % (42.0-52.0); HEMOGLOBIN 14.2 g/dl (13.5-17.5); MEAN CORPUSCULAR HEMOGLOBIN 33.4 pg (27.0-33.0); MEAN CORPUSCULAR HGB CONC 34.9 g/dl (32.0-36.5); MEAN CORPUSCULAR VOLUME 95.8 fl (80.0-96.0); PLATELET COUNT, AUTOMATED 194 10^3/uL (150-450); RED BLOOD COUNT 4.25 10^6/uL (4.30-6.10); WHITE BLOOD COUNT 6.8 10^3/uL (4.0-10.0)
[2024-02-18 20:00] LABS: AMPHETAMINES LEVEL URINE NEGATIVE (NEGATIVE); BARBITURATES URINE NEGATIVE (NEGATIVE); BENZODIAZEPINES URINE NEGATIVE (NEGATIVE); CANNABINOIDS URINE NEGATIVE (NEGATIVE); COCAINE METABOLITE URINE NEGATIVE (NEGATIVE); METHADONE URINE NEGATIVE (NEGATIVE); OPIATES URINE NEGATIVE (NEGATIVE); PHENCYCLIDINE URINE NEGATIVE (NEGATIVE)
[2024-02-18 20:02] LABS: ETHYL ALCOHOL (ETHANOL) 0.245 % (0.000-0.010)
[2024-02-18 20:03] LABS: SALICYLATE LEVEL < 3.0 MG/DL (<30)
[2024-02-18 20:04] LABS: ALBUMIN 4.1 G/DL (3.2-5.2); ALKALINE PHOSPHATASE 63 U/L (46-116); ALT/SGPT 223 U/L (7.0-40); AST/SGOT 215 U/L (<34); BILIRUBIN,DIRECT 0.3 MG/DL (<0.4); BILIRUBIN,TOTAL 0.5 MG/DL (0.3-1.2); BLOOD UREA NITROGEN 11 MG/DL (9-23); CALCIUM LEVEL 8.7 MG/DL (8.5-10.1); CARBON DIOXIDE LEVEL 26 MMOL/L (20-31); CHLORIDE LEVEL 103 MMOL/L (98-107); CREATININE FOR GFR 1.03 MG/DL (0.70-1.30); GLOMERULAR FILTRATION RATE > 60.0 (>56); GLUCOSE, FASTING 72 MG/DL (60-100); POTASSIUM SERUM 3.6 MMOL/L (3.5-5.1); SODIUM LEVEL 138 MMOL/L (136-145); TOTAL PROTEIN 6.8 G/DL (5.7-8.2)
[2024-02-18 20:08] LABS: THYROID STIMULATING HORMONE 1.599 uIU/ML (0.55-4.78)
[2024-02-18] MEDS ORDERED: HOME MED LIST COMPLETE! XX SCH ×2 (20:30)
[2024-02-19] MEDS ORDERED: MAALOX 30 ML SUSP *UDC PO PRN (03:20)
[2024-02-19] MEDS ORDERED: MOM 30ML SUSPENSION UDC PO PRN (03:20)
[2024-02-19] MEDS ORDERED: diphenhydrAMINE 25MG CAP PO PRN (03:20)
[2024-02-19] MEDS ORDERED: ACETAMINOPHEN TAB 650MG DOSE (2X325MG) PO PRN (03:20)
[2024-02-19] MEDS ORDERED: IBUPROFEN 400MG TAB PO PRN (03:20)
[2024-02-19] MEDS ORDERED: LORazepam 2 MG TAB PO PRN (04:30)
[2024-02-19 04:31] VITALS: BP 103/71; TEMP 97.8; O2SAT 97
[2024-02-19] MEDS: THIAMINE 100 MG TAB PO SCH (05:00)
[2024-02-19 05:09] VITALS: BP 103/71
[2024-02-19] MEDS ORDERED: ESCITALOPRAM OXALATE 10 MG TAB (LEXAPRO) PO SCH (09:00)
[2024-02-19] MEDS: FOLIC ACID 1MG TAB PO SCH (09:27)
[2024-02-19] MEDS: MULTIVITAMINS/MINERALS THERAP 1 TAB PO SCH (09:27)
[2024-02-19] MEDS: ESCITALOPRAM OXALATE 10 MG TAB (LEXAPRO) PO SCH (09:28)
[2024-02-19 13:28] LABS: HEPATITIS B SURFACE ANTIGEN NEGATIVE (NEGATIVE)
[2024-02-19 13:49] LABS: HEPATITIS C VIRUS ABY INDEX < 0.02 INDEX (<0.8)
[2024-02-19 13:50] LABS: HEPATITIS B CORE ANTIBODY IGM NEGATIVE (NEGATIVE)
[2024-02-19 14:00] VITALS: BP 115/72; TEMP 98.1
[2024-02-19 22:00] VITALS: BP 119/71
[2024-02-20 06:17] VITALS: BP 121/74; TEMP 98.4; O2SAT 96
[2024-02-20 07:25] LABS: CHOLESTEROL RISK RATIO 1.81 (<5); HDL CHOLESTEROL 98.3 MG/DL (>40); LDL CHOLESTEROL 62.9 MG/DL (<100); NON-HDL-C 79.7 MG/DL
[2024-02-20] MEDS ORDERED: hydrOXYzine 50 MG TAB PO PRN (10:50)
[2024-02-20 14:00] VITALS: BP 119/81
[2024-02-20 16:08] VITALS: BP 119/81; TEMP 97.6; O2SAT 96
[2024-02-20] MEDS: traZODone 50 MG TAB PO PRN (20:16)
[2024-02-21 06:42] VITALS: BP 94/50; TEMP 97.7; O2SAT 100
[2024-02-21 06:43] VITALS: BP_SYST 101; BP_SYST 94; BP_DIAS 50; BP_DIAS 65
[2024-02-21] MEDS ORDERED: LEXA1TAB PO (08:21)
[2024-02-21] MEDS ORDERED: Multivitamins PO (08:21)
[2024-02-21] MEDS ORDERED: ABIL1TAB11 PO (08:21)
== END 2024-02-21 11:33 | disposition home or self-care (01) | DRG 753 ==
LOC: M ED 18:31 → M ED INP 02-19 03:16 → M PSY 02-19 04:10
PROVIDERS: ADMIT Student in an Organized Health Care Education/Training Program; ATTEND Student in an Organized Health Care Education/Training Program
DX: F31.9 Bipolar disorder, unspecified (principal); R45.850 Homicidal ideations; R45.851 Suicidal ideations; Z91.148 Patient's other noncompliance with medication regimen for other reason; F10.10 Alcohol abuse, uncomplicated; F17.200 Nicotine dependence, unspecified, uncomplicated; F43.10 Post-traumatic stress disorder, unspecified; I25.10 Atherosclerotic heart disease of native coronary artery without angina pectoris; I25.2 Old myocardial infarction; Z88.5 Allergy status to narcotic agent

== ENCOUNTER → 2024-03-03 | Outpatient (CLI) | payer OTHER ==
[~2024-03-03] MED LIST changes: +ABIL1TAB11 PO; +Multivitamins PO
== END ==
LOC: M PAIN 15:00
PROVIDERS: ATTEND Nurse Practitioner Family
DX: M79.10 Myalgia, unspecified site (principal); M54.50 Low back pain, unspecified; F17.200 Nicotine dependence, unspecified, uncomplicated; Z79.51 Long term (current) use of inhaled steroids; Z79.899 Other long term (current) drug therapy; Z88.5 Allergy status to narcotic agent

== ENCOUNTER → 2024-05-07 | Outpatient (CLI) | payer OTHER | LOC: M PAIN 16:00 | PROVIDERS: ATTEND Nurse Practitioner Family | DX: M79.18 Myalgia, other site (principal); G89.29 Other chronic pain; Z79.899 Other long term (current) drug therapy; F17.210 Nicotine dependence, cigarettes, uncomplicated; Z88.5 Allergy status to narcotic agent ==

== ENCOUNTER 2024-08-02 17:04 | Emergency (ER) | payer OTHER ==
[~2024-08-02 17:04] MED LIST changes: -CYCL5TAB PO; +CYCL5TAB4 PO; -LIDO1CRE2 TOP; +LIDO4CRE12 TOP; -OLAN2.5T25 PO; +OLAN2.5T53 PO
[2024-08-02 17:08] VITALS: BP 131/66; TEMP 97; O2SAT 95
[2024-08-02] MEDS: ACETAMINOPHEN 500 MG TAB PO ONE (18:30)
[2024-08-02] MEDS: IBUPROFEN 600MG TAB PO ONE (19:43)
== END 2024-08-02 20:22 | disposition home or self-care (01) ==
LOC: M ED 17:04
DX: M19.072 Primary osteoarthritis, left ankle and foot (principal); I25.2 Old myocardial infarction; J44.9 Chronic obstructive pulmonary disease, unspecified; K21.9 Gastro-esophageal reflux disease without esophagitis; K76.0 Fatty (change of) liver, not elsewhere classified; C34.90 Malignant neoplasm of unspecified part of unspecified bronchus or lung; F17.200 Nicotine dependence, unspecified, uncomplicated; Z87.820 Personal history of traumatic brain injury; Z88.5 Allergy status to narcotic agent; Z79.899 Other long term (current) drug therapy; Z79.1 Long term (current) use of non-steroidal anti-inflammatories (NSAID)

== ENCOUNTER → 2024-08-12 | Outpatient (REF) | payer OTHER ==
[2024-08-12 18:21] LABS: ALBUMIN 3.7 G/DL (3.2-5.2); ALKALINE PHOSPHATASE 71 U/L (40-129); ALT/SGPT 104 U/L (7.0-40); AST/SGOT 96 U/L (<34); BILIRUBIN,DIRECT < 0.1 MG/DL (<0.4); BILIRUBIN,TOTAL 0.2 MG/DL (0.3-1.2); TOTAL PROTEIN 7.1 G/DL (5.7-8.2)
== END ==
LOC: M LAB REF 16:54
PROVIDERS: ATTEND Nurse Practitioner Family
DX: R74.01 Elevation of levels of liver transaminase levels (principal)

== ENCOUNTER 2024-09-22 00:48 | Emergency (ER) | payer OTHER ==
[~2024-09-22] VITALS: Ht 175.3 cm; Wt 59.0 kg
[2024-09-22 02:33] VITALS: BP 118/87; TEMP 97.2; O2SAT 96
== END 2024-09-22 03:02 | disposition left against medical advice (07) ==
LOC: M ED 00:48 → EDBD 00:48 → M ED 03:02
DX: Z53.21 Procedure and treatment not carried out due to patient leaving prior to being seen by health care provider (principal)

== ENCOUNTER 2025-01-07 22:03 | Inpatient (IN) | payer OTHER ==
[~2025-01-07] VITALS: Ht 170.2 cm; Wt 68.5 kg
[2025-01-07] MEDS: ATORVASTATIN 20 MG TAB PO SCH (21:00)
[2025-01-07] MEDS ORDERED: ISOVUE-370 76% 100ML VIAL As Ordered ONE (22:10)
[2025-01-07 22:25] VITALS: BP 109/65; TEMP 97.4; O2SAT 95
[2025-01-07 22:38] VITALS: BP 98/67
[2025-01-07 22:43] LABS: BASO % 0.3 % (0.0-1.0); EOS # 0.1 10^3/uL (0.0-0.5); HEMATOCRIT 39.4 % (42.0-52.0); HEMOGLOBIN 13.7 g/dl (13.5-17.5); LYMPH # 1.3 10^3/uL (1.5-5.0); LYMPH % 21.2 % (24.0-44.0); MEAN CORPUSCULAR HEMOGLOBIN 33.5 pg (27.0-33.0); MEAN CORPUSCULAR HGB CONC 34.8 g/dl (32.0-36.5); MEAN CORPUSCULAR VOLUME 96.3 fl (80.0-96.0); MONO # 0.6 10^3/uL (0.0-0.8); MONO % 9.5 % (2.0-8.0); NEUTROPHILS # 4.2 10^3/uL (1.5-8.5); NEUTROPHILS % 67.5 % (36.0-66.0); PLATELET COUNT, AUTOMATED 238 10^3/uL (150-450); RED BLOOD COUNT 4.09 10^6/uL (4.30-6.10); WHITE BLOOD COUNT 6.2 10^3/uL (4.0-10.0)
[2025-01-07] MEDS: NS (Normal Saline) 0.9% 1,000 ML IV ONE (22:45)
[2025-01-07 22:59] LABS: INR 0.98; PARTIAL THROMBOPLASTIN TIME 25.1 SECONDS (24.8-34.2); PROTHROMBIN TIME 13.3 SECONDS (12.5-14.5)
[2025-01-08] MEDS ORDERED: HOME MED LIST COMPLETE! XX SCH (00:45)
[2025-01-08] MEDS ORDERED: ACETAMINOPHEN 325 MG TAB PO PRN (01:35)
[2025-01-08] MEDS ORDERED: MAALOX 30 ML SUSP *UDC PO PRN (01:35)
[2025-01-08] MEDS ORDERED: LORazepam 2 MG TAB PO PRN (01:35)
[2025-01-08] MEDS ORDERED: MOM 30ML SUSPENSION UDC PO PRN (01:35)
[2025-01-08] MEDS: NS (Normal Saline) 0.9% 1,000 ML IV SCH (02:01)
[2025-01-08] MEDS: THIAMINE 100 MG TAB PO SCH (02:01)
[2025-01-08] MEDS: FAMOTIDINE IV BAG 20 MG in IV 1 EA IV ONE (02:01)
[2025-01-08 02:49] LABS: HEMATOCRIT 39.5 % (42.0-52.0); HEMOGLOBIN 13.6 g/dl (13.5-17.5); MEAN CORPUSCULAR HEMOGLOBIN 33.4 pg (27.0-33.0); MEAN CORPUSCULAR HGB CONC 34.4 g/dl (32.0-36.5); MEAN CORPUSCULAR VOLUME 97.1 fl (80.0-96.0); PLATELET COUNT, AUTOMATED 239 10^3/uL (150-450); RED BLOOD COUNT 4.07 10^6/uL (4.30-6.10); WHITE BLOOD COUNT 5.8 10^3/uL (4.0-10.0)
[2025-01-08 03:22] LABS: ALBUMIN 3.6 G/DL (3.2-5.2); ALKALINE PHOSPHATASE 46 U/L (40-129); ALT/SGPT 29 U/L (7.0-40); AST/SGOT 29 U/L (<34); BILIRUBIN,DIRECT 0.1 MG/DL (<0.4); BILIRUBIN,TOTAL 0.3 MG/DL (0.3-1.2); BLOOD UREA NITROGEN 5 MG/DL (9-23); CALCIUM LEVEL 7.7 MG/DL (8.3-10.6); CARBON DIOXIDE LEVEL 25 MMOL/L (20-31); CHLORIDE LEVEL 110 MMOL/L (98-107); CHOLESTEROL LEVEL 151 MG/DL (<200); CHOLESTEROL RISK RATIO 1.75 (<5); GLOMERULAR FILTRATION RATE > 90.0 (>49); GLUCOSE, FASTING 87 MG/DL (74-106); HDL CHOLESTEROL 85.8 MG/DL (>40); LDL CHOLESTEROL 52.4 MG/DL (<100); MAGNESIUM LEVEL 1.9 MG/DL (1.8-2.4); NON-HDL-C 65.2 MG/DL; PHOSPHORUS LEVEL 4.2 MG/DL (2.4-5.1); POTASSIUM SERUM 3.8 MMOL/L (3.5-5.1); SODIUM LEVEL 146 MMOL/L (136-145); TOTAL PROTEIN 6.4 G/DL (5.7-8.2); TRIGLYCERIDES LEVEL 64 MG/DL (<150)
[2025-01-08 03:27] LABS: PROCALCITONIN 0.04 ng/ml
[2025-01-08] MEDS: FOLIC ACID 1MG TAB PO SCH (09:59)
[2025-01-08] MEDS: MULTIVITAMINS/MINERALS THERAP 1 TAB PO SCH (09:59)
[2025-01-08] MEDS: DOCUSATE SODIUM 100MG CAPSULE PO SCH (09:59)
[2025-01-08] MEDS: ASPIRIN 81MG ENTERIC TABLET PO SCH (09:59)
[2025-01-08] MEDS: PANTOPRAZOLE 40MG VIAL IV SCH (10:00)
[2025-01-08] MEDS: HEPARIN SOD (PORCINE) 5000UNITS/ML 1ML VIAL/SYRINGE SC SCH (10:00)
[2025-01-08] MEDS: NS 0.45% 1,000 ML IV ONE (11:00)
[2025-01-08] MEDS ORDERED: THIA100TA PO (11:36)
[2025-01-08] MEDS ORDERED: FOLI1TAB11 PO (11:36)
[2025-01-08] MEDS ORDERED: MULT-90 PO (11:36)
[2025-01-08] MEDS ORDERED: ASPI81TAEC PO (11:36)
[2025-01-08 13:09] LABS: CALCIUM LEVEL 7.9 MG/DL (8.3-10.6); CREATININE FOR GFR 1.05 MG/DL (0.70-1.30); GLOMERULAR FILTRATION RATE 81.3 (>49); POTASSIUM SERUM 4.5 MMOL/L (3.5-5.1)
[2025-01-08] MEDS: D5W 1,000 ML IV ONE ×2 (13:20→15:42)
[2025-01-08 15:34] LABS: CALCIUM LEVEL 7.9 MG/DL (8.3-10.6); CREATININE FOR GFR 1.06 MG/DL (0.70-1.30); GLOMERULAR FILTRATION RATE 80.3 (>49); POTASSIUM SERUM 3.8 MMOL/L (3.5-5.1)
[2025-01-08 15:38] VITALS: BP 111/69; TEMP 97.3; O2SAT 95
[2025-01-08] MEDS ORDERED: DEXTROSE 50% 50ML SYRINGE IV STA (16:48)
== END 2025-01-08 18:32 | disposition home or self-care (01) | DRG 48 ==
LOC: M ED 22:03 → M ED INP 01-08 01:35 → M MSPAV 01-08 15:35
PROVIDERS: ADMIT Student in an Organized Health Care Education/Training Program; ATTEND General Practice
PROC: B246ZZZ Ultrasonography of Right and Left Heart (ICD-10-PCS; principal; 2025-01-08)
DX: G62.1 Alcoholic polyneuropathy (principal); E87.0 Hyperosmolality and hypernatremia; K76.0 Fatty (change of) liver, not elsewhere classified; F10.129 Alcohol abuse with intoxication, unspecified; F10.130 Alcohol abuse with withdrawal, uncomplicated; F31.9 Bipolar disorder, unspecified; I25.10 Atherosclerotic heart disease of native coronary artery without angina pectoris; F43.10 Post-traumatic stress disorder, unspecified; K21.9 Gastro-esophageal reflux disease without esophagitis; F17.210 Nicotine dependence, cigarettes, uncomplicated; E86.0 Dehydration; D53.9 Nutritional anemia, unspecified; E16.2 Hypoglycemia, unspecified; R26.89 Other abnormalities of gait and mobility; M47.892 Other spondylosis, cervical region; I25.2 Old myocardial infarction; W10.8XXA Fall (on) (from) other stairs and steps, initial encounter; Y92.009 Unspecified place in unspecified non-institutional (private) residence as the place of occurrence of the external cause; Z71.6 Tobacco abuse counseling; Z71.41 Alcohol abuse counseling and surveillance of alcoholic; Z88.5 Allergy status to narcotic agent; Z95.5 Presence of coronary angioplasty implant and graft; Z85.118 Personal history of other malignant neoplasm of bronchus and lung; Z90.49 Acquired absence of other specified parts of digestive tract

== ENCOUNTER 2025-01-11 19:54 | Emergency (ER) | payer OTHER ==
[~2025-01-11 19:54] MED LIST changes: +ASPI81TAEC PO; +MULT-90 PO
[2025-01-11 20:32] VITALS: O2SAT 97
[2025-01-11 20:58] LABS: HEMATOCRIT 41.7 % (42.0-52.0); HEMOGLOBIN 14.3 g/dl (13.5-17.5); MEAN CORPUSCULAR HEMOGLOBIN 33.2 pg (27.0-33.0); MEAN CORPUSCULAR HGB CONC 34.3 g/dl (32.0-36.5); MEAN CORPUSCULAR VOLUME 96.8 fl (80.0-96.0); PLATELET COUNT, AUTOMATED 271 10^3/uL (150-450); RED BLOOD COUNT 4.31 10^6/uL (4.30-6.10); WHITE BLOOD COUNT 9.4 10^3/uL (4.0-10.0)
[2025-01-11 21:14] LABS: BARBITURATES URINE NEGATIVE (NEGATIVE); COCAINE METABOLITE URINE NEGATIVE (NEGATIVE); METHADONE URINE NEGATIVE (NEGATIVE); OPIATES URINE NEGATIVE (NEGATIVE); PHENCYCLIDINE URINE NEGATIVE (NEGATIVE)
[2025-01-11 21:15] LABS: AMPHETAMINES LEVEL URINE NEGATIVE (NEGATIVE); BENZODIAZEPINES URINE NEGATIVE (NEGATIVE); CANNABINOIDS URINE NEGATIVE (NEGATIVE)
[2025-01-11] MEDS ORDERED: THIA100T7 PO (21:21)
[2025-01-11] MEDS ORDERED: THERTAB52 PO (21:21)
[2025-01-11] MEDS ORDERED: ASPI-615 PO (21:21)
[2025-01-11] MEDS ORDERED: HOME MED LIST COMPLETE! XX SCH (21:25)
[2025-01-11 21:30] LABS: ETHYL ALCOHOL (ETHANOL) 0.198 % (0.000-0.010)
[2025-01-11 21:32] LABS: SALICYLATE LEVEL < 3.0 MG/DL (<30)
[2025-01-11 21:34] LABS: THYROID STIMULATING HORMONE 4.361 uIU/ML (0.55-4.78)
[2025-01-11 21:37] LABS: ALBUMIN 4.3 G/DL (3.2-5.2); ALKALINE PHOSPHATASE 62 U/L (40-129); ALT/SGPT 37 U/L (7.0-40); AST/SGOT 44 U/L (<34); BILIRUBIN,DIRECT 0.1 MG/DL (<0.4); BILIRUBIN,TOTAL 0.3 MG/DL (0.3-1.2); BLOOD UREA NITROGEN 10 MG/DL (9-23); CALCIUM LEVEL 9.5 MG/DL (8.3-10.6); CARBON DIOXIDE LEVEL 26 MMOL/L (20-31); CHLORIDE LEVEL 106 MMOL/L (98-107); GLOMERULAR FILTRATION RATE 86.2 (>49); GLUCOSE, FASTING 90 MG/DL (74-106); POTASSIUM SERUM 3.8 MMOL/L (3.5-5.1); SODIUM LEVEL 144 MMOL/L (136-145); TOTAL PROTEIN 7.4 G/DL (5.7-8.2)
[2025-01-12 03:01] VITALS: BP 145/84; TEMP 97.5
== END 2025-01-12 03:00 | disposition home or self-care (01) ==
LOC: M ED 19:54
DX: F43.10 Post-traumatic stress disorder, unspecified (principal); I25.119 Atherosclerotic heart disease of native coronary artery with unspecified angina pectoris; K21.9 Gastro-esophageal reflux disease without esophagitis; K76.0 Fatty (change of) liver, not elsewhere classified; F31.9 Bipolar disorder, unspecified; F20.9 Schizophrenia, unspecified; F17.210 Nicotine dependence, cigarettes, uncomplicated; Z88.5 Allergy status to narcotic agent; Z79.1 Long term (current) use of non-steroidal anti-inflammatories (NSAID); Z79.810 Long term (current) use of selective estrogen receptor modulators (SERMs)

== ENCOUNTER 2025-01-19 23:48 | Emergency (ER) | payer OTHER ==
[~2025-01-19] VITALS: Ht 175.3 cm; Wt 63.6 kg
[~2025-01-19 23:48] MED LIST changes: +ASPI-615 PO; +THERTAB52 PO
[2025-01-20] MEDS ORDERED: ISOVUE-370 76% 100ML VIAL As Ordered ONE (00:16)
[2025-01-20 00:34] VITALS: TEMP 97.2
[2025-01-20 00:39] LABS: BASO % 0.4 % (0.0-1.0); EOS # 0.1 10^3/uL (0.0-0.5); EOS % 1.6 % (0.0-3.0); HEMATOCRIT 38.6 % (42.0-52.0); HEMOGLOBIN 13.4 g/dl (13.5-17.5); LYMPH # 1.8 10^3/uL (1.5-5.0); LYMPH % 26.8 % (24.0-44.0); MEAN CORPUSCULAR HEMOGLOBIN 33.5 pg (27.0-33.0); MEAN CORPUSCULAR HGB CONC 34.7 g/dl (32.0-36.5); MEAN CORPUSCULAR VOLUME 96.5 fl (80.0-96.0); MONO # 0.7 10^3/uL (0.0-0.8); MONO % 10.1 % (2.0-8.0); NEUTROPHILS # 4.2 10^3/uL (1.5-8.5); NEUTROPHILS % 60.8 % (36.0-66.0); PLATELET COUNT, AUTOMATED 254 10^3/uL (150-450); WHITE BLOOD COUNT 6.8 10^3/uL (4.0-10.0)
[2025-01-20 00:49] LABS: INR 0.95; PARTIAL THROMBOPLASTIN TIME 26.3 SECONDS (24.8-34.2)
[2025-01-20 00:50] LABS: KETONE, URINE AUTO RFX NEGATIVE (NEGATIVE); LEUKOCYTE ESTERASE UR AUTO RFX NEGATIVE (NEGATIVE); NITRITE, URINE AUTO RFX NEGATIVE (NEGATIVE); RBC, URINE AUTO RFX 0 /HPF (0-3); SQUAM EPITHELIAL CELL UR AURFX 0 /HPF (0-6); WBC, URINE AUTO RFX 0 /HPF (0-3)
[2025-01-20 01:18] LABS: AMPHETAMINES LEVEL URINE NEGATIVE (NEGATIVE); BARBITURATES URINE NEGATIVE (NEGATIVE); BENZODIAZEPINES URINE NEGATIVE (NEGATIVE); CANNABINOIDS URINE NEGATIVE (NEGATIVE); COCAINE METABOLITE URINE NEGATIVE (NEGATIVE); METHADONE URINE NEGATIVE (NEGATIVE); OPIATES URINE NEGATIVE (NEGATIVE); PHENCYCLIDINE URINE NEGATIVE (NEGATIVE)
[2025-01-20] MEDS: FOLIC ACID 1MG TAB PO ONE (02:03)
[2025-01-20] MEDS: GABAPENTIN 300 MG CAP PO ONE (02:03)
[2025-01-20] MEDS: THIAMINE 100 MG TAB PO ONE (02:03)
[2025-01-20] MEDS: CYANOCOBALAMIN 1,000MCG/ML 1ML VIAL IM SCH (02:04)
[2025-01-20] MEDS: LIDOCAINE 5% (LIDODERM) PATCH TD ONE (05:49)
[2025-01-20] MEDS: ACETAMINOPHEN 500 MG TAB PO ONE (05:49)
[2025-01-20 06:16] VITALS: BP 109/70; O2SAT 95
== END 2025-01-20 06:33 | disposition home or self-care (01) ==
LOC: M ED 23:48 → EDBD 23:48 → M ED 01-20 06:33
DX: M54.32 Sciatica, left side (principal); F10.10 Alcohol abuse, uncomplicated; K21.9 Gastro-esophageal reflux disease without esophagitis; K76.0 Fatty (change of) liver, not elsewhere classified; F20.9 Schizophrenia, unspecified; F32.A Depression, unspecified; J44.9 Chronic obstructive pulmonary disease, unspecified; F31.9 Bipolar disorder, unspecified; C34.90 Malignant neoplasm of unspecified part of unspecified bronchus or lung; F17.200 Nicotine dependence, unspecified, uncomplicated; Z79.82 Long term (current) use of aspirin; Z79.899 Other long term (current) drug therapy; Z88.5 Allergy status to narcotic agent
CPT/HCPCS: 70450; 70496; 70498; 71045; 80047; 80307; 81001; 85025; 85610; 85730; 93005; 93041; 94760; 96372; 99285; J3420; Q9967